=== PATIENT | male | born 1990 | race Caucasian/White ===

== ENCOUNTER 2017-12-31 19:49 | Emergency (ER) | payer MEDICAID ==
[~2017-12-31] VITALS: Ht 182.9 cm; Wt 90.7 kg
[~2017-12-31 19:49] MED LIST: ONDA8TAB6 PO; OXC300T PO; PANT40TA2 PO; RISP2TAB62 PO; SERT-274 PO; SERT-275 PO; TRAZ100T2 PO
[2017-12-31 21:10] LABS: Eosinophils # (auto) 0 uL; Eosinophils % (auto) 0.1 % (0.0-7.0); Red Blood Cells 5.95 10^6/uL (4.5-5.90)
[2017-12-31 21:12] LABS: Basophils # (auto) 0.1 uL; Basophils % (auto) 0.4 % (0.0-2.0); Hematocrit 53.6 % (41.0-53.0); Hemoglobin 18.9 g/dL (13.5-17.5); Lymphocytes # (auto) 1.8 uL; Lymphocytes % (auto) 10.7 % (10.0-50.0); Mean Corpuscular Hemoglobin 31.7 pg (28.0-32.0); Mean Corpuscular Hgb Conc. 35.2 g/dL (32.0-36.0); Mean Corpuscular Volume 90.2 fL (80.0-100.0); Monocytes # (auto) 0.8 uL; Monocytes % (auto) 4.9 % (0.0-12.0); Neutrophils # (auto) 13.9 uL; Neutrophils % (auto) 83.9 % (37.0-80.0); Nucleated Red Blood Cells % 0.1 %; Platelet Count (auto) 242 10^3/uL (140-450); Red Cell Distribution Width 13.7 % (11.8-14.3); White Blood Cell 16.6 10^3/uL (4.4-10.8)
[2017-12-31 21:25] LABS: Albumin 4.3 g/dL (3.4-5.0); Anion Gap 17 (5-15); BUN/Creatinine Ratio 12.9; Blood Urea Nitrogen 15 mg/dL (7-18); Carbon Dioxide 24 mmol/L (21-32); Chloride 95 mmol/L (98-107); GFR African American 97 mL/min; GFR Non-African American 80 mL/min; Glucose 98 mg/dL (74-106); Potassium 3.3 mmol/L (3.5-5.1); Sodium 136 mmol/L (136-145)
[2017-12-31 21:28] LABS: Alanine Aminotransferase 49 U/L (16-61); Alkaline Phosphatase 92 U/L (45-117); Aspartate Aminotransferase 27 U/L (15-37); Bilirubin, Total 1.7 mg/dL (0.2-1.0); Total Protein 8.1 g/dL (6.4-8.2)
[2018-01-01] MEDS ORDERED: KETOROLAC TROMETH 30 MG/ML 1ML VIAL IV ONE (02:15)
[2018-01-01] MEDS ORDERED: SODIUM CHLORIDE 0.9% 1,000 ML IV ONE (02:15)
[2018-01-01] MEDS ORDERED: ONDANSETRON HCL 4 MG/2 ML VIAL IV ONE (02:15)
[2018-01-01] MEDS ORDERED: PANTOPRAZOLE 40 MG/10 ML VIAL IV ONE (02:15)
[2018-01-01 04:10] VITALS: BP 131/72
== END 2018-01-01 07:13 | disposition home or self-care (01) ==
LOC: ER 19:49
DX: G43.A0 Cyclical vomiting, in migraine, not intractable (principal); F12.10 Cannabis abuse, uncomplicated; F17.210 Nicotine dependence, cigarettes, uncomplicated; Z88.5 Allergy status to narcotic agent; Z88.0 Allergy status to penicillin; Z79.899 Other long term (current) drug therapy
CPT/HCPCS: 36415; 74177; 80053; 85025; 94761; 96361; 96374; 96375; 99285; C9113; J1885; J2405; J7030

== ENCOUNTER 2018-02-03 17:02 | Observation (INO) | payer MEDICAID ==
[~2018-02-03] VITALS: Ht 182.9 cm; Wt 97.5 kg
[~2018-02-03 17:02] MED LIST changes: +ONDA-143 PO; -ONDA8TAB6 PO
[2018-02-03 18:01] LABS: Basophils # (auto) 0.1 uL; Eosinophils # (auto) 0 uL; Lymphocytes % (auto) 8.6 % (10.0-50.0); Monocytes # (auto) 0.7 uL
[2018-02-03 18:02] LABS: Basophils % (auto) 0.5 % (0.0-2.0); Hematocrit 53.2 % (41.0-53.0); Hemoglobin 18.2 g/dL (13.5-17.5); Lymphocytes # (auto) 1.2 uL; Mean Corpuscular Hemoglobin 31.1 pg (28.0-32.0); Mean Corpuscular Hgb Conc. 34.3 g/dL (32.0-36.0); Mean Corpuscular Volume 90.8 fL (80.0-100.0); Monocytes % (auto) 4.6 % (0.0-12.0); Neutrophils # (auto) 12.5 uL; Neutrophils % (auto) 86.3 % (37.0-80.0); Nucleated Red Blood Cells % 0.1 %; Platelet Count (auto) 282 10^3/uL (140-450); Red Blood Cells 5.86 10^6/uL (4.5-5.90); Red Cell Distribution Width 13.8 % (11.8-14.3); White Blood Cell 14.5 10^3/uL (4.4-10.8)
[2018-02-03 18:19] LABS: Albumin 4.5 g/dL (3.4-5.0); BUN/Creatinine Ratio 13.7; Bilirubin, Total 0.9 mg/dL (0.2-1.0); Calcium 9.1 mg/dL (8.5-10.1)
[2018-02-03 19:42] LABS: Urine Bacteria NONE SEEN /hpf (None Seen); Urine Blood 1+ /uL (Negative); Urine Mucus FEW (None Seen); Urine WBC 4 /hpf (0 - 3)
[2018-02-03 19:57] LABS: Alcohol, Urine < 3.0 mg/dL (0-5); Amphetamine Screen, Urine NEGATIVE (NEGATIVE); Barbiturate Scree,Urine NEGATIVE (NEGATIVE); Cannabinoid Screen, Urine POSITIVE (NEGATIVE); Cocaine Screen, Urine NEGATIVE (NEGATIVE); Opiate Scree,Urine NEGATIVE (NEGATIVE); Phencyclidine Screen, Urine NEGATIVE (NEGATIVE)
[2018-02-03 20:20] LABS: Benzodiazephine Screen, Urine POSITIVE (NEGATIVE)
[2018-02-03] MEDS ORDERED: KETOROLAC TROMETH 30 MG/ML 1ML VIAL IV ONE (21:45)
[2018-02-03] MEDS ORDERED: PROMETHAZINE HCL 25 MG/ML 1ML IV ONE (21:45)
[2018-02-03] MEDS ORDERED: PANTOPRAZOLE 40 MG/10 ML VIAL IV ONE (21:45)
[2018-02-03] MEDS ORDERED: METOCLOPRAMIDE HCL 5MG/ml INJ 2ml VIAL IV ONE (21:45)
[2018-02-04 00:30] VITALS: BP 122/67
[2018-02-04] MEDS ORDERED: SODIUM CHLORIDE 0.9% 1,000 ML IV ONE (00:30)
[2018-02-04] MEDS ORDERED: ALUM & MAG HYDROX-SIMETH LIQ(MAALOX) 30 ML PO ONE (00:30)
== END 2018-02-04 01:51 | disposition home or self-care (01) | DRG 249 ==
LOC: ER 17:02 → OVERFLOW 17:03 → ER 02-04 01:30
PROVIDERS: ADMIT Anesthesiology; ATTEND Anesthesiology
DX: R11.2 Nausea with vomiting, unspecified (principal); G30.9 Alzheimer's disease, unspecified; K86.1 Other chronic pancreatitis; F02.80 Dementia in other diseases classified elsewhere, unspecified severity, without behavioral disturbance, psychotic disturbance, mood disturbance, and anxiety; E87.6 Hypokalemia; F17.210 Nicotine dependence, cigarettes, uncomplicated; F12.188 Cannabis abuse with other cannabis-induced disorder
CPT/HCPCS: 36415; 74176; 80053; 80307; 80320; 81001; 82150; 83690; 85025; 96361; 96374; 96375; 99285; C9113; G0378; J1885; J2550; J2765

== ENCOUNTER 2018-02-20 22:13 | Emergency (ER) | payer MEDICAID ==
[~2018-02-20] VITALS: Ht 182.9 cm; Wt 99.8 kg
[2018-02-20 22:55] LABS: Basophils # (auto) 0 uL; Basophils % (auto) 0.4 % (0.0-2.0); Eosinophils # (auto) 0 uL; Hematocrit 47.1 % (41.0-53.0); Hemoglobin 16.4 g/dL (13.5-17.5); Lymphocytes # (auto) 0.4 uL; Lymphocytes % (auto) 3.6 % (10.0-50.0); Mean Corpuscular Hgb Conc. 34.9 g/dL (32.0-36.0); Mean Corpuscular Volume 88.9 fL (80.0-100.0); Monocytes # (auto) 0.2 uL; Monocytes % (auto) 1.3 % (0.0-12.0); Neutrophils # (auto) 10.6 uL; Neutrophils % (auto) 94.7 % (37.0-80.0); Platelet Count (auto) 274 10^3/uL (140-450); Red Blood Cells 5.29 10^6/uL (4.5-5.90); Red Cell Distribution Width 13.9 % (11.8-14.3); White Blood Cell 11.2 10^3/uL (4.4-10.8)
[2018-02-20 23:10] LABS: Alanine Aminotransferase 28 U/L (16-61); Albumin 3.9 g/dL (3.4-5.0); Anion Gap 20 (5-15); Aspartate Aminotransferase 11 U/L (15-37); BUN/Creatinine Ratio 10.1; Blood Urea Nitrogen 10 mg/dL (7-18); Calcium 8.7 mg/dL (8.5-10.1); Carbon Dioxide 16 mmol/L (21-32); Chloride 103 mmol/L (98-107); GFR African American 117 mL/min; GFR Non-African American 96 mL/min; Glucose 122 mg/dL (74-106); Potassium 3.6 mmol/L (3.5-5.1); Sodium 139 mmol/L (136-145)
[2018-02-20 23:14] LABS: Alkaline Phosphatase 87 U/L (45-117); Bilirubin, Total 0.6 mg/dL (0.2-1.0); Total Protein 7.6 g/dL (6.4-8.2)
[2018-02-21] MEDS ORDERED: SODIUM CHLORIDE 0.9% 1,000 ML IV ONE (01:30)
[2018-02-21] MEDS ORDERED: ONDANSETRON HCL 4 MG/2 ML VIAL IV ONE (01:30)
[2018-02-21] MEDS ORDERED: PROMETHAZINE HCL 25 MG/ML 1ML IV ONE (05:00)
[2018-02-21 05:33] LABS: Urine Bacteria NONE SEEN /hpf (None Seen); Urine Blood 1+ /uL (Negative); Urine Mucus FEW (None Seen); Urine Specific Gravity 1.024 (1.001-1.035); Urine WBC 2 /hpf (0 - 3)
[2018-02-21 05:49] LABS: Alcohol, Urine < 3.0 mg/dL (0-5); Amphetamine Screen, Urine NEGATIVE (NEGATIVE); Barbiturate Scree,Urine NEGATIVE (NEGATIVE); Benzodiazephine Screen, Urine POSITIVE (NEGATIVE); Cannabinoid Screen, Urine POSITIVE (NEGATIVE); Cocaine Screen, Urine NEGATIVE (NEGATIVE); Opiate Scree,Urine POSITIVE (NEGATIVE); Phencyclidine Screen, Urine NEGATIVE (NEGATIVE)
[2018-02-21 06:05] VITALS: BP 120/64
== END 2018-02-21 06:35 | disposition home or self-care (01) ==
LOC: ER 22:13
DX: R11.2 Nausea with vomiting, unspecified (principal); F17.210 Nicotine dependence, cigarettes, uncomplicated; Z88.5 Allergy status to narcotic agent; Z88.0 Allergy status to penicillin; Z79.899 Other long term (current) drug therapy
CPT/HCPCS: 36415; 80053; 80307; 81001; 84484; 85025; 96361; 96374; 96375; 99284; J2405; J2550; J7030

== ENCOUNTER 2018-02-25 20:56 | Emergency (ER) | payer MEDICAID ==
[~2018-02-25] VITALS: Ht 182.9 cm; Wt 99.8 kg
[2018-02-25 22:24] LABS: Urine Bacteria NONE SEEN /hpf (None Seen); Urine Blood TRACE /uL (Negative); Urine Mucus FEW (None Seen); Urine WBC 7 /hpf (0 - 3)
[2018-02-25 22:31] LABS: Albumin 4.3 g/dL (3.4-5.0); Bilirubin, Total 0.8 mg/dL (0.2-1.0); Calcium 9.1 mg/dL (8.5-10.1); Potassium 3.3 mmol/L (3.5-5.1); Total Protein 7.8 g/dL (6.4-8.2)
[2018-02-25 22:34] LABS: Basophils # (auto) 0.1 uL; Basophils % (auto) 0.6 % (0.0-2.0); Eosinophils # (auto) 0 uL; Eosinophils % (auto) 0.1 % (0.0-7.0); Hematocrit 47.9 % (41.0-53.0); Hemoglobin 16.8 g/dL (13.5-17.5); Lymphocytes # (auto) 1.2 uL; Lymphocytes % (auto) 9.5 % (10.0-50.0); Mean Corpuscular Hemoglobin 31.3 pg (28.0-32.0); Mean Corpuscular Hgb Conc. 35.1 g/dL (32.0-36.0); Mean Corpuscular Volume 89.1 fL (80.0-100.0); Monocytes # (auto) 0.5 uL; Monocytes % (auto) 3.7 % (0.0-12.0); Neutrophils % (auto) 86.1 % (37.0-80.0); Nucleated Red Blood Cells % 0.1 %; Platelet Count (auto) 286 10^3/uL (140-450); Red Blood Cells 5.38 10^6/uL (4.5-5.90); Red Cell Distribution Width 13.8 % (11.8-14.3); White Blood Cell 12.8 10^3/uL (4.4-10.8)
[2018-02-26] MEDS ORDERED: SODIUM CHLORIDE 0.9% 1,000 ML IV ONE (07:49)
[2018-02-26 07:54] LABS: Alcohol, Urine < 3.0 mg/dL (0-5); Amphetamine Screen, Urine NEGATIVE (NEGATIVE); Barbiturate Scree,Urine NEGATIVE (NEGATIVE); Benzodiazephine Screen, Urine POSITIVE (NEGATIVE); Cannabinoid Screen, Urine POSITIVE (NEGATIVE); Cocaine Screen, Urine NEGATIVE (NEGATIVE); Opiate Scree,Urine NEGATIVE (NEGATIVE); Phencyclidine Screen, Urine NEGATIVE (NEGATIVE)
[2018-02-26] MEDS ORDERED: PROCHLORPERAZINE EDISYLATE 5 MG/ML 2ML VIAL IV ONE (08:00)
[2018-02-26] MEDS ORDERED: MORPHINE SULFATE 4 MG/ML SYR/VIAL IV ONE (10:00)
[2018-02-26 10:43] VITALS: BP 120/68
== END 2018-02-26 10:49 | disposition home or self-care (01) ==
LOC: ER 20:56
DX: R11.10 Vomiting, unspecified (principal); F12.188 Cannabis abuse with other cannabis-induced disorder; N39.0 Urinary tract infection, site not specified; F17.210 Nicotine dependence, cigarettes, uncomplicated; Z88.0 Allergy status to penicillin; Z88.5 Allergy status to narcotic agent; Z79.899 Other long term (current) drug therapy
CPT/HCPCS: 36415; 80053; 80307; 81001; 85025; 94761; 96361; 96374; 96375; 99284; J0780; J2270; J7030

== ENCOUNTER 2018-05-01 20:27 | Emergency (ER) | payer MEDICAID ==
[~2018-05-01] VITALS: Ht 180.3 cm; Wt 97.5 kg
[2018-05-01 20:38] VITALS: BP 115/82
[2018-05-01 21:14] LABS: Basophils # (auto) 0.1 uL; Eosinophils # (auto) 0.1 uL; Eosinophils % (auto) 0.7 % (0.0-7.0); Hematocrit 44.7 % (41.0-53.0); Lymphocytes # (auto) 1.7 uL; Lymphocytes % (auto) 14.3 % (10.0-50.0); Mean Corpuscular Hemoglobin 30.7 pg (28.0-32.0); Mean Corpuscular Hgb Conc. 33.5 g/dL (32.0-36.0); Mean Corpuscular Volume 91.7 fL (80.0-100.0); Monocytes # (auto) 0.6 uL; Neutrophils # (auto) 9.2 uL; Nucleated Red Blood Cells % 0.1 %; Platelet Count (auto) 256 10^3/uL (140-450); Red Blood Cells 4.87 10^6/uL (4.5-5.90); Red Cell Distribution Width 13.7 % (11.8-14.3); White Blood Cell 11.7 10^3/uL (4.4-10.8)
[2018-05-01 21:31] LABS: Albumin 3.9 g/dL (3.4-5.0); Anion Gap 8 (5-15); Blood Urea Nitrogen 13 mg/dL (7-18); Calcium 8.9 mg/dL (8.5-10.1); Carbon Dioxide 26 mmol/L (21-32); Chloride 102 mmol/L (98-107); Glucose 78 mg/dL (74-106); INR 0.99 (0.9-1.15); Magnesium 2.2 mg/dL (1.6-2.6); Partial Thromboplastin Time 28.5 sec (23.78-33.04); Potassium 3.7 mmol/L (3.5-5.1); Prothrombin Time 10.6 sec (9.27-12.13); Sodium 136 mmol/L (136-145)
[2018-05-01 21:37] LABS: Alanine Aminotransferase 23 U/L (16-61); Alkaline Phosphatase 88 U/L (45-117); Aspartate Aminotransferase 12 U/L (15-37); BUN/Creatinine Ratio 11.9; Bilirubin, Total 0.3 mg/dL (0.2-1.0); GFR African American 104 mL/min; GFR Non-African American 86 mL/min
== END 2018-05-01 22:21 | disposition left against medical advice (07) ==
LOC: EDBD 20:27 → ER 20:33
DX: R07.9 Chest pain, unspecified (principal); Z53.21 Procedure and treatment not carried out due to patient leaving prior to being seen by health care provider
CPT/HCPCS: 36415; 80053; 83735; 83880; 84484; 85025; 85610; 85730; 93005

== ENCOUNTER 2020-02-26 05:13 | Emergency (ER) | payer MEDICAID ==
[~2020-02-26] VITALS: Ht 177.8 cm; Wt 99.8 kg
[~2020-02-26 05:13] MED LIST changes: -TRAZ100T2 PO; +TRAZ100T3 PO
[2020-02-26 05:18] VITALS: BP 134/82
[2020-02-26] MEDS ORDERED: SODIUM CHLORIDE 0.9% 1,000 ML IV ONE ×2 (06:35)
[2020-02-26] MEDS ORDERED: PROCHLORPERAZINE EDISYLATE 5 MG/ML 2ML VIAL IV ONE (06:45)
== END 2020-02-26 09:47 | disposition left against medical advice (07) ==
LOC: ER 05:13 → EDBD 05:13 → ER 09:47
DX: E86.0 Dehydration (principal); R11.2 Nausea with vomiting, unspecified; F17.210 Nicotine dependence, cigarettes, uncomplicated; Z87.442 Personal history of urinary calculi
CPT/HCPCS: 74176

== ENCOUNTER 2021-08-14 00:13 | Inpatient (IN) | payer MEDICAID ==
[2021-08-14] VITALS (15 sets, daily range): BP systolic 91–123; BP diastolic 31–78
[~2021-08-14] VITALS: Ht 177.8 cm; Wt 105.2 kg
[~2021-08-14 00:13] MED LIST changes: -SERT-274 PO; -SERT-275 PO; +SERT25TA14 PO; +SERT50TA19 PO
[2021-08-14] MEDS ORDERED: ETOMIDATE (2MG/ML) 20ML VIAL IV ONE ×2 (00:18→01:15)
[2021-08-14] MEDS: MIDAZOLAM DRIP 50 mg/50mL 50 ML IV SCH ×3 (00:35→18:45)
[2021-08-14 01:26] LABS: Basophils # (auto) 0.1 10 ^3/uL (0-0.2); Basophils % (auto) 0.7 % (0.0-2.0); Eosinophils # (auto) 0.1 10 ^3/uL (0-0.8); Eosinophils % (auto) 0.6 % (0.0-7.0); Hemoglobin 14.4 g/dL (13.5-17.5); Lymphocytes # (auto) 1.8 10 ^3/uL (0.4-5.4); Lymphocytes % (auto) 16.2 % (10.0-50.0); Mean Corpuscular Hgb Conc. 33.5 g/dL (32.0-36.0); Mean Corpuscular Volume 92.5 fL (80.0-100.0); Monocytes # (auto) 0.4 10 ^3/uL (0-1.3); Monocytes % (auto) 3.7 % (0.0-12.0); Neutrophils # (auto) 8.6 10 ^3/uL (1.6-8.6); Neutrophils % (auto) 78.8 % (37.0-80.0); Red Blood Cells 4.64 10^6/uL (4.5-5.90); Red Cell Distribution Width 13.8 % (11.8-14.3)
[2021-08-14 01:49] LABS: Alcohol, Urine < 3.0 mg/dL (0-10); Amphetamine Screen, Urine NEGATIVE (NEGATIVE); Barbiturate Scree,Urine NEGATIVE (NEGATIVE); Benzodiazephine Screen, Urine POSITIVE (NEGATIVE); Cannabinoid Screen, Urine POSITIVE (NEGATIVE); Cocaine Screen, Urine NEGATIVE (NEGATIVE); Opiate Scree,Urine NEGATIVE (NEGATIVE); Phencyclidine Screen, Urine NEGATIVE (NEGATIVE)
[2021-08-14 02:52] LABS: Alanine Aminotransferase 128 U/L (16-61); Albumin 3.4 g/dL (3.4-5.0); Alkaline Phosphatase 95 U/L (45-117); Anion Gap 6 (5-15); Aspartate Aminotransferase 110 U/L (15-37); BUN/Creatinine Ratio 8.6; Bilirubin, Total 0.3 mg/dL (0.2-1.0); Blood Alcohol < 3.0 mg/dL (0-5); Blood Urea Nitrogen 13 mg/dL (7-18); Calcium 8.2 mg/dL (8.5-10.1); Carbon Dioxide 26 mmol/L (21-32); Chloride 108 mmol/L (98-107); GFR African American 70 mL/min; GFR Non-African American 58 mL/min; Glucose 189 mg/dL (74-106); Potassium 4.2 mmol/L (3.5-5.1); Sodium 140 mmol/L (136-145); Total Protein 6.3 g/dL (6.4-8.2)
[2021-08-14] MEDS ORDERED: PROPOFOL 100 ML IV ONE (03:56)
[2021-08-14] MEDS: PROPOFOL 100 ML IV SCH ×3 (04:15→18:45)
[2021-08-14] MEDS ORDERED: PROPOFOL 10 MG/ML 20 ML IV ONE (04:45)
[2021-08-14] MEDS ORDERED: PANTOPRAZOLE 40 MG/10 ML VIAL INJ IV ONE (05:15)
[2021-08-14] MEDS ORDERED: SODIUM CHLORIDE 0.9% 1,000 ML IV ONE ×2 (05:15)
[2021-08-14] MEDS ORDERED: ONDANSETRON HCL 4 MG/2 ML VIAL IV PRN (06:15)
[2021-08-14] MEDS: SODIUM CHLORIDE 0.9% 1,000 ML IV SCH ×2 (07:09→19:25)
[2021-08-14 08:44] LABS: Basophils # (auto) 0 10 ^3/uL (0-0.2); Basophils % (auto) 0.5 % (0.0-2.0); Eosinophils # (auto) 0 10 ^3/uL (0-0.8); Eosinophils % (auto) 0.2 % (0.0-7.0); Hematocrit 45.8 % (41.0-53.0); Hemoglobin 15.5 g/dL (13.5-17.5); Lymphocytes # (auto) 0.5 10 ^3/uL (0.4-5.4); Lymphocytes % (auto) 11.4 % (10.0-50.0); Mean Corpuscular Hemoglobin 31.2 pg (28.0-32.0); Mean Corpuscular Hgb Conc. 33.9 g/dL (32.0-36.0); Mean Corpuscular Volume 92.2 fL (80.0-100.0); Monocytes # (auto) 0.2 10 ^3/uL (0-1.3); Monocytes % (auto) 4.2 % (0.0-12.0); Neutrophils % (auto) 83.7 % (37.0-80.0); Nucleated Red Blood Cells % 0.1 %; Red Blood Cells 4.97 10^6/uL (4.5-5.90); Red Cell Distribution Width 13.7 % (11.8-14.3); White Blood Cell 4.8 10^3/uL (4.4-10.8)
[2021-08-14 08:46] LABS: Calcium 8.5 mg/dL (8.5-10.1); Potassium 3.8 mmol/L (3.5-5.1)
[2021-08-14 08:47] LABS: BUN/Creatinine Ratio 12.1
[2021-08-14] MEDS: PANTOPRAZOLE 40 MG/10 ML VIAL INJ IV SCH (10:25)
[2021-08-14] MEDS: ENOXAPARIN SOD 40 MG/0.4 ML SYRINGE SC SCH (10:28)
[2021-08-14] MEDS ORDERED: NITROGLYCERIN 0.4 MG SL TAB SL PRN (11:00)
[2021-08-14] MEDS ORDERED: MORPHINE SULFATE INJECTION 2 MG/ML SYRG IV PRN (11:00)
[2021-08-14] MEDS: levoFLOXacin 500MG 100 ML IV SCH (11:30)
[2021-08-15] VITALS (75 sets, daily range): BP systolic 88–133; BP diastolic 31–77
[2021-08-15] MEDS: PROPOFOL 100 ML IV SCH ×3 (04:00→13:00)
[2021-08-15] MEDS: SODIUM CHLORIDE 0.9% 1,000 ML IV SCH ×3 (04:50→22:15)
[2021-08-15] MEDS: MIDAZOLAM DRIP 50 mg/50mL 50 ML IV SCH ×2 (09:07→13:00)
[2021-08-15] MEDS: levoFLOXacin 500MG 100 ML IV SCH (09:07)
[2021-08-15] MEDS: ENOXAPARIN SOD 40 MG/0.4 ML SYRINGE SC SCH (09:07)
[2021-08-15] MEDS: PANTOPRAZOLE 40 MG/10 ML VIAL INJ IV SCH (09:49)
[2021-08-15] MEDS ORDERED: ACCU-CHEK COMFORT CURVE STRIP VI ONE ×2 (17:45→18:00)
[2021-08-15] MEDS ORDERED: DEXTROSE (50%) 50ML SYRG IV ONE ×2 (17:45→18:00)
[2021-08-15] MEDS ORDERED: FLUO60TA7 PO (23:22)
[2021-08-15] MEDS ORDERED: CHOL20007 PO (23:24)
[2021-08-16] VITALS (74 sets, daily range): BP systolic 101–146; BP diastolic 50–87
[2021-08-16] MEDS: SODIUM CHLORIDE 0.9% 1,000 ML IV SCH ×2 (08:15→18:15)
[2021-08-16] MEDS: PROPOFOL 100 ML IV SCH ×2 (09:00→22:16)
[2021-08-16] MEDS: ENOXAPARIN SOD 40 MG/0.4 ML SYRINGE SC SCH (09:12)
[2021-08-16] MEDS: levoFLOXacin 500MG 100 ML IV SCH (09:12)
[2021-08-16] MEDS: PANTOPRAZOLE 40 MG/10 ML VIAL INJ IV SCH (09:12)
[2021-08-16] MEDS: LORazepam 0.5 MG TAB PO SCH (22:08)
[2021-08-16] MEDS: QUEtiapine FUMARATE 25 MG TAB PO SCH (22:09)
[2021-08-16] MEDS: MIDAZOLAM DRIP 50 mg/50mL 50 ML IV SCH (22:10)
[2021-08-17] VITALS (66 sets, daily range): BP systolic 96–153; BP diastolic 46–88
[2021-08-17] MEDS: PROPOFOL 100 ML IV SCH (03:40)
[2021-08-17] MEDS: SODIUM CHLORIDE 0.9% 1,000 ML IV SCH ×2 (04:15→14:38)
[2021-08-17 04:34] LABS: Basophils # (auto) 0.1 10 ^3/uL (0-0.2); Basophils % (auto) 0.8 % (0.0-2.0); Eosinophils # (auto) 0.1 10 ^3/uL (0-0.8); Eosinophils % (auto) 1.1 % (0.0-7.0); Hematocrit 38.7 % (41.0-53.0); Hemoglobin 13.1 g/dL (13.5-17.5); Lymphocytes # (auto) 2.2 10 ^3/uL (0.4-5.4); Lymphocytes % (auto) 18.5 % (10.0-50.0); Mean Corpuscular Hemoglobin 30.6 pg (28.0-32.0); Mean Corpuscular Hgb Conc. 33.7 g/dL (32.0-36.0); Mean Corpuscular Volume 90.7 fL (80.0-100.0); Monocytes # (auto) 1.2 10 ^3/uL (0-1.3); Monocytes % (auto) 9.9 % (0.0-12.0); Neutrophils # (auto) 8.2 10 ^3/uL (1.6-8.6); Neutrophils % (auto) 69.7 % (37.0-80.0); Nucleated Red Blood Cells % 0.1 %; Red Blood Cells 4.27 10^6/uL (4.5-5.90); Red Cell Distribution Width 13.6 % (11.8-14.3); White Blood Cell 11.7 10^3/uL (4.4-10.8)
[2021-08-17 04:52] LABS: Albumin 2.5 g/dL (3.4-5.0); Calcium 8.3 mg/dL (8.5-10.1); Potassium 3.4 mmol/L (3.5-5.1)
[2021-08-17 04:58] LABS: BUN/Creatinine Ratio 5.3; Bilirubin, Total 0.5 mg/dL (0.2-1.0); Total Protein 5.9 g/dL (6.4-8.2)
[2021-08-17] MEDS: ENOXAPARIN SOD 40 MG/0.4 ML SYRINGE SC SCH (07:19)
[2021-08-17] MEDS: LORazepam 0.5 MG TAB PO SCH ×2 (10:24→21:58)
[2021-08-17] MEDS: PANTOPRAZOLE 40 MG/10 ML VIAL INJ IV SCH (10:24)
[2021-08-17] MEDS: levoFLOXacin 500MG 100 ML IV SCH (10:24)
[2021-08-17] MEDS: QUEtiapine FUMARATE 25 MG TAB PO SCH ×2 (10:25→22:00)
[2021-08-17] MEDS ORDERED: EPINEPHrine HCL 0.5 ML NEB NEB ONE ×2 (16:00→16:15)
[2021-08-17] MEDS: D5W/LACTATED RINGERS 1,000 ML IV SCH (17:15)
[2021-08-18] VITALS (40 sets, daily range): BP systolic 100–144; BP diastolic 58–98
[2021-08-18] MEDS: MIDAZOLAM DRIP 50 mg/50mL 50 ML IV SCH (00:30)
[2021-08-18 04:18] LABS: BUN/Creatinine Ratio 6.1; Calcium 8.1 mg/dL (8.5-10.1); Potassium 3.4 mmol/L (3.5-5.1)
[2021-08-18] MEDS: PROPOFOL 100 ML IV SCH (04:45)
[2021-08-18] MEDS: LORazepam 0.5 MG TAB PO SCH ×3 (06:23→21:15)
[2021-08-18] MEDS: D5W/LACTATED RINGERS 1,000 ML IV SCH ×2 (06:24→19:55)
[2021-08-18] MEDS: PANTOPRAZOLE 40 MG/10 ML VIAL INJ IV SCH (09:26)
[2021-08-18] MEDS: ENOXAPARIN SOD 40 MG/0.4 ML SYRINGE SC SCH (09:26)
[2021-08-18] MEDS: levoFLOXacin 500MG 100 ML IV SCH (09:26)
[2021-08-18] MEDS: QUEtiapine FUMARATE 25 MG TAB PO SCH ×2 (09:26→21:15)
[2021-08-18] MEDS ORDERED: QUET200T45 PO (18:08)
[2021-08-19] MEDS ORDERED: ACETAMINOPHEN 325 MG TAB PO PRN (01:00)
[2021-08-19] MEDS: LORazepam 0.5 MG TAB PO SCH ×3 (06:15→22:24)
[2021-08-19 09:19] VITALS: BP 131/67
[2021-08-19] MEDS: PANTOPRAZOLE 40 MG/10 ML VIAL INJ IV SCH (10:29)
[2021-08-19] MEDS: levoFLOXacin 500MG 100 ML IV SCH (10:29)
[2021-08-19] MEDS: ENOXAPARIN SOD 40 MG/0.4 ML SYRINGE SC SCH (10:30)
[2021-08-19] MEDS: D5W/LACTATED RINGERS 1,000 ML IV SCH (10:30)
[2021-08-19] MEDS: QUEtiapine FUMARATE 25 MG TAB PO SCH ×2 (10:30→22:24)
[2021-08-19 13:00] VITALS: BP 129/71
[2021-08-19 17:48] VITALS: BP 118/66
[2021-08-20] MEDS: LORazepam 0.5 MG TAB PO SCH ×3 (06:15→22:08)
[2021-08-20 09:00] VITALS: BP 142/79
[2021-08-20] MEDS: ENOXAPARIN SOD 40 MG/0.4 ML SYRINGE SC SCH (10:00)
[2021-08-20] MEDS: QUEtiapine FUMARATE 25 MG TAB PO SCH ×2 (10:00→22:08)
[2021-08-20] MEDS: PANTOPRAZOLE 40 MG/10 ML VIAL INJ IV SCH (10:15)
[2021-08-20 13:00] VITALS: BP 150/65
[2021-08-20 17:00] VITALS: BP 111/53
[2021-08-21 05:00] VITALS: BP 132/73
[2021-08-21] MEDS: LORazepam 0.5 MG TAB PO SCH (06:06)
[2021-08-21 08:00] VITALS: BP 121/69
[2021-08-21] MEDS: ENOXAPARIN SOD 40 MG/0.4 ML SYRINGE SC SCH (10:00)
[2021-08-21] MEDS: QUEtiapine FUMARATE 25 MG TAB PO SCH (10:00)
[2021-08-21] MEDS: PANTOPRAZOLE 40 MG/10 ML VIAL INJ IV SCH (10:58)
[2021-08-21 11:53] VITALS: BP 121/69
== END 2021-08-21 11:50 | disposition home health service (06) | DRG 133 ==
LOC: EDBD 00:13 → ER 00:13 → OVERFLOW 10:48 → ICU WEST 21:43 → TELE-CENTR 08-18 17:10
PROVIDERS: ADMIT Internal Medicine; ATTEND Internal Medicine
PROC: 5A1945Z Respiratory Ventilation, 24-96 Consecutive Hours (ICD-10-PCS; principal; 2021-08-14)
PROC: 0BH17EZ Insertion of Endotracheal Airway into Trachea, Via Natural or Artificial Opening (ICD-10-PCS; 2021-08-14)
DX: J96.01 Acute respiratory failure with hypoxia (principal); G92.8 Other toxic encephalopathy; G93.1 Anoxic brain damage, not elsewhere classified; E87.2 Acidosis; F33.9 Major depressive disorder, recurrent, unspecified; N17.9 Acute kidney failure, unspecified; E86.0 Dehydration; E66.01 Morbid (severe) obesity due to excess calories; F12.90 Cannabis use, unspecified, uncomplicated; F41.9 Anxiety disorder, unspecified; F90.9 Attention-deficit hyperactivity disorder, unspecified type; Z20.822 Contact with and (suspected) exposure to COVID-19; F17.210 Nicotine dependence, cigarettes, uncomplicated; Z82.49 Family history of ischemic heart disease and other diseases of the circulatory system; Z82.62 Family history of osteoporosis; Z87.442 Personal history of urinary calculi; Z88.5 Allergy status to narcotic agent; Z91.51 Personal history of suicidal behavior; Z88.0 Allergy status to penicillin; Z56.0 Unemployment, unspecified; Z68.34 Body mass index [BMI] 34.0-34.9, adult
CPT/HCPCS: 36415; 36600; 70450; 71045; 72125; 80048; 80053; 80307; 80320; 82805; 82962; 83605; 84484; 85025; 86850; 86900; 86901; 87070; 87081; 87205; 87426; 92610; 93005; 94002; 94003; 95819; 96361; 96374; 97110; 97116; 97163; 97530; 99291; C9113; G0378; J1956; J2250; J2405; J2704; J7060

== ENCOUNTER 2022-11-29 19:23 | Inpatient (IN) | payer MEDICAID ==
[~2022-11-29] VITALS: Ht 182.9 cm; Wt 102.0 kg
[~2022-11-29 19:23] MED LIST changes: +CHOL20007 PO; +FLUO60TA7 PO; -ONDA-143 PO; +QUET200T45 PO; -RISP2TAB62 PO; -SERT25TA14 PO; -SERT50TA19 PO; -TRAZ100T3 PO
[2022-11-29 20:56] LABS: Albumin 4.6 g/dL (3.4-5.0); Calcium 10.3 mg/dL (8.5-10.1); Potassium 4.2 mmol/L (3.5-5.1)
[2022-11-29 20:59] LABS: BUN/Creatinine Ratio 24.9 (10.0-20.0); Bilirubin, Total 0.8 mg/dL (0.2-1.0); Total Protein 8.7 g/dL (6.4-8.2)
[2022-11-29 21:02] LABS: Red Cell Distribution Width 14.8 % (11.8-14.3)
[2022-11-29 21:03] LABS: Hematocrit 51.5 % (41.0-53.0); Hemoglobin 17.3 g/dL (13.5-17.5); Mean Corpuscular Hemoglobin 31.2 pg (28.0-32.0); Mean Corpuscular Hgb Conc. 33.7 g/dL (32.0-36.0); Mean Corpuscular Volume 92.6 fL (80.0-100.0); Red Blood Cells 5.56 10^6/uL (4.5-5.90); White Blood Cell 26.7 10^3/uL (4.4-10.8)
[2022-11-29 21:13] LABS: Band Neutrophils % (manual) 0; Basophils % (manual) 0 (0.0-2.0); Blast Cells 0; Eosinophils % (manual) 0 (0-7); Metamyelocytes % 0; Myelocytes % 0; Promyelocytes % 0; Reactive Lymphocytes 0
[2022-11-29 21:51] LABS: Lymphocytes % (manual) 10 (10.0-50.0); Monocytes % (manual) 7 (0-12)
[2022-11-29] MEDS ORDERED: LACTATED RINGER'S 2,750 ML IV ONE (22:00)
[2022-11-29] MEDS ORDERED: cefTRIAXone 1GM/50ML D5W 50 ML IV ONE (22:00)
[2022-11-29] MEDS ORDERED: metroNIDAZOLE 500MG/100ML 100 ML IV ONE (22:00)
[2022-11-29] MEDS ORDERED: LACTATED RINGER'S 1,000 ML IV ONE (22:04)
[2022-11-29] MEDS ORDERED: MORPHINE SULFATE INJ 2 MG/ml SYRG IM ONE (22:05)
[2022-11-29] MEDS ORDERED: ONDANSETRON ODT 4 MG TAB PO ONE (22:06)
[2022-11-29] MEDS ORDERED: IOHEXOL 350 MG/ML 100ML IJ ONE (22:51)
[2022-11-29 23:19] LABS: INR 1.15 (0.9-1.15); Partial Thromboplastin Time 24.8 sec (24.6-33.4)
[2022-11-29 23:28] LABS: Lactic Acid w/Reflex 2.9 mmol/L (0.4-2.0)
[2022-11-30] MEDS ORDERED: MORPHINE SULFATE 4 MG/ML SYR/VIAL IV ONE ×2 (00:30→08:15)
[2022-11-30] MEDS ORDERED: ONDANSETRON HCL 4 MG/2 ML VIAL IV ONE ×2 (00:30→08:15)
[2022-11-30] MEDS ORDERED: diphenhdrAMINE HCL 50 MG/1 ML VL IV ONE (00:45)
[2022-11-30] MEDS ORDERED: METOCLOPRAMIDE HCL 5MG/ml INJ 2ml VIAL IV ONE (00:45)
[2022-11-30 03:04] LABS: Urine Bacteria NONE SEEN /hpf (None Seen); Urine Blood Negative /uL (Negative); Urine Mucus FEW (None Seen); Urine WBC 2 /hpf (0 - 3)
[2022-11-30 03:11] LABS: Alcohol, Urine < 3.0 mg/dL (0-10); Amphetamine Screen, Urine NEGATIVE (NEGATIVE); Barbiturate Scree,Urine NEGATIVE (NEGATIVE); Benzodiazephine Screen, Urine NEGATIVE (NEGATIVE); Cannabinoid Screen, Urine POSITIVE (NEGATIVE); Cocaine Screen, Urine NEGATIVE (NEGATIVE); Opiate Scree,Urine POSITIVE (NEGATIVE)
[2022-11-30 03:19] LABS: Phencyclidine Screen, Urine NEGATIVE (NEGATIVE)
[2022-11-30 03:20] LABS: Urine Specific Gravity > 1.050 (1.001-1.035)
[2022-11-30] MEDS ORDERED: DEXTROSE (50%) 50ML SYRG IV PRN (09:00)
[2022-11-30] MEDS ORDERED: MORPHINE SULFATE INJ 2 MG/ml SYRG IV ONE (09:15)
[2022-11-30 10:19] LABS: Lactic Acid w/Reflex 2.5 mmol/L (0.4-2.0)
[2022-11-30] MEDS: cefTRIAXone 1GM/50ML D5W 50 ML IV SCH (10:39)
[2022-11-30] MEDS: DICYCLOMINE HCL (10MG/ML) 2 ML AMPULE IM SCH ×2 (10:39→21:09)
[2022-11-30] MEDS: PANTOPRAZOLE 40 MG/10 ML VIAL INJ IV SCH (10:39)
[2022-11-30] MEDS: SODIUM CHLORIDE 0.9% 1,000 ML IV SCH ×2 (10:42→19:33)
[2022-11-30] MEDS: ACCU-CHEK COMFORT CURVE STRIP VI SCH ×2 (12:32→21:09)
[2022-11-30] MEDS: MORPHINE SULFATE INJ 2 MG/ml SYRG IV PRN (12:49)
[2022-11-30] MEDS: InsuLIN REG 1unit/0.01ml Soln (100units/ml) SC SCH ×2 (13:00→18:00)
[2022-11-30 13:17] LABS: Creatinine, Urine 223 mg/dL (30.0-125.0); Sodium Urine 6 mmol/L (40-220)
[2022-11-30] MEDS: metroNIDAZOLE 500MG/100ML 100 ML IV SCH (14:08)
[2022-11-30] MEDS ORDERED: LORazepam 2MG/ML-1ML VIAL IV ONE (14:15)
[2022-12-01] MEDS: PANTOPRAZOLE 40 MG/10 ML VIAL INJ IV SCH ×3 (00:46→22:29)
[2022-12-01] MEDS: ACCU-CHEK COMFORT CURVE STRIP VI SCH ×4 (00:47→17:09)
[2022-12-01] MEDS: InsuLIN REG 1unit/0.01ml Soln (100units/ml) SC SCH ×4 (00:47→17:09)
[2022-12-01] MEDS: metroNIDAZOLE 500MG/100ML 100 ML IV SCH ×4 (00:47→22:29)
[2022-12-01] MEDS: D5W/SOD CHL 0.45% 1,000 ML IV SCH ×2 (00:47→12:22)
[2022-12-01] MEDS: MORPHINE SULFATE INJ 2 MG/ml SYRG IV PRN ×2 (00:51→08:51)
[2022-12-01] MEDS: SODIUM CHLORIDE 0.9% 1,000 ML IV SCH ×3 (01:40→16:51)
[2022-12-01 05:00] VITALS: BP 134/87
[2022-12-01] MEDS: DICYCLOMINE HCL (10MG/ML) 2 ML AMPULE IM SCH ×4 (06:00→18:22)
[2022-12-01 07:37] LABS: Albumin 3.1 g/dL (3.4-5.0); Calcium 8.3 mg/dL (8.5-10.1); Potassium 4.4 mmol/L (3.5-5.1)
[2022-12-01 07:40] LABS: Bilirubin, Total 0.5 mg/dL (0.2-1.0); Total Protein 6.4 g/dL (6.4-8.2)
[2022-12-01 08:00] VITALS: BP 136/86
[2022-12-01] MEDS: cefTRIAXone 1GM/50ML D5W 50 ML IV SCH (08:37)
[2022-12-01 08:57] VITALS: BP 136/86
[2022-12-01 11:18] LABS: Basophils # (auto) 0 10 ^3/uL (0-0.2); Basophils % (auto) 0.3 % (0.0-2.0); Eosinophils # (auto) 0 10 ^3/uL (0-0.8); Eosinophils % (auto) 0.1 % (0.0-7.0); Hematocrit 40.1 % (41.0-53.0); Hemoglobin 13.4 g/dL (13.5-17.5); Lymphocytes # (auto) 2.1 10 ^3/uL (0.4-5.4); Lymphocytes % (auto) 14.2 % (10.0-50.0); Mean Corpuscular Hemoglobin 30.9 pg (28.0-32.0); Mean Corpuscular Hgb Conc. 33.3 g/dL (32.0-36.0); Mean Corpuscular Volume 92.7 fL (80.0-100.0); Monocytes # (auto) 0.7 10 ^3/uL (0-1.3); Monocytes % (auto) 4.8 % (0.0-12.0); Neutrophils # (auto) 12.1 10 ^3/uL (1.6-8.6); Neutrophils % (auto) 80.6 % (37.0-80.0); Nucleated Red Blood Cells % 0.1 %; Red Blood Cells 4.33 10^6/uL (4.5-5.90); Red Cell Distribution Width 14.5 % (11.8-14.3); White Blood Cell 15.1 10^3/uL (4.4-10.8)
[2022-12-01 12:54] VITALS: BP 134/87
[2022-12-01] MEDS ORDERED: MEPERIDINE HCL (25 MG/ML) 1ML VIAL ONE (15:07)
[2022-12-01] MEDS ORDERED: fentaNYL CITRATE 100 MCG/2 ML VL ONE (15:07)
[2022-12-01] MEDS ORDERED: MIDAZOLAM HCL 2MG/2ML 2ml VIAL (1mg/ml) ONE (15:07)
[2022-12-01] MEDS ORDERED: DexAMETHasone SOD PHOS 10MG/1ML VIAL INJ ONE (15:21)
[2022-12-01] MEDS: SUCRALFATE 1 GM/10 ML ORAL SUSP PO SCH ×2 (17:02→22:00)
[2022-12-01 20:00] VITALS: BP 147/87
[2022-12-01 21:46] VITALS: BP 147/87
[2022-12-01] MEDS: METOCLOPRAMIDE HCL 5MG/ml INJ 2ml VIAL IV SCH (22:30)
[2022-12-02] VITALS (7 sets, daily range): BP systolic 119–134; BP diastolic 75–91
[2022-12-02] MEDS: SODIUM CHLORIDE 0.9% 1,000 ML IV SCH ×3 (01:05→18:07)
[2022-12-02] MEDS: DICYCLOMINE HCL (10MG/ML) 2 ML AMPULE IM SCH ×4 (01:10→18:08)
[2022-12-02] MEDS: metroNIDAZOLE 500MG/100ML 100 ML IV SCH ×3 (06:17→20:57)
[2022-12-02] MEDS: METOCLOPRAMIDE HCL 5MG/ml INJ 2ml VIAL IV SCH ×3 (06:17→20:57)
[2022-12-02] MEDS: SUCRALFATE 1 GM/10 ML ORAL SUSP PO SCH ×2 (06:21→11:30)
[2022-12-02] MEDS: cefTRIAXone 1GM/50ML D5W 50 ML IV SCH (09:35)
[2022-12-02] MEDS: PANTOPRAZOLE 40 MG/10 ML VIAL INJ IV SCH ×2 (09:35→20:57)
[2022-12-02] MEDS: MORPHINE SULFATE INJ 2 MG/ml SYRG IV PRN ×2 (09:36→18:04)
[2022-12-02 09:54] LABS: Basophils # (auto) 0.1 10 ^3/uL (0-0.2); Basophils % (auto) 0.4 % (0.0-2.0); Eosinophils # (auto) 0 10 ^3/uL (0-0.8); Hematocrit 33.9 % (41.0-53.0); Hemoglobin 11.7 g/dL (13.5-17.5); Lymphocytes # (auto) 2.1 10 ^3/uL (0.4-5.4); Lymphocytes % (auto) 13.8 % (10.0-50.0); Mean Corpuscular Hemoglobin 31.4 pg (28.0-32.0); Mean Corpuscular Hgb Conc. 34.6 g/dL (32.0-36.0); Mean Corpuscular Volume 90.8 fL (80.0-100.0); Monocytes # (auto) 0.7 10 ^3/uL (0-1.3); Monocytes % (auto) 4.6 % (0.0-12.0); Neutrophils # (auto) 12.4 10 ^3/uL (1.6-8.6); Neutrophils % (auto) 81.2 % (37.0-80.0); Nucleated Red Blood Cells % 0.1 %; Red Blood Cells 3.73 10^6/uL (4.5-5.90); Red Cell Distribution Width 14.3 % (11.8-14.3); White Blood Cell 15.3 10^3/uL (4.4-10.8)
[2022-12-02 10:26] LABS: BUN/Creatinine Ratio 14.8 (10.0-20.0); Calcium 8.4 mg/dL (8.5-10.1); Magnesium 2.6 mg/dL (1.6-2.6); Potassium 3.5 mmol/L (3.5-5.1)
[2022-12-02] MEDS ORDERED: SUCRALFATE 1 GM TAB PO ONE (13:15)
[2022-12-02] MEDS: ONDANSETRON HCL 4 MG/2 ML VIAL IV PRN (18:04)
[2022-12-02] MEDS: SUCRALFATE 1 GM TAB PO SCH ×2 (18:06→20:57)
[2022-12-03] MEDS: DICYCLOMINE HCL (10MG/ML) 2 ML AMPULE IM SCH ×4 (01:14→18:00)
[2022-12-03] MEDS: MORPHINE SULFATE INJ 2 MG/ml SYRG IV PRN ×3 (01:22→15:54)
[2022-12-03] MEDS: SODIUM CHLORIDE 0.9% 1,000 ML IV SCH ×3 (01:38→16:45)
[2022-12-03 05:00] VITALS: BP 111/67
[2022-12-03] MEDS: metroNIDAZOLE 500MG/100ML 100 ML IV SCH ×2 (06:23→13:57)
[2022-12-03] MEDS: METOCLOPRAMIDE HCL 5MG/ml INJ 2ml VIAL IV SCH ×2 (06:24→13:57)
[2022-12-03] MEDS: SUCRALFATE 1 GM TAB PO SCH ×3 (06:29→19:20)
[2022-12-03 08:00] VITALS: BP 134/76
[2022-12-03] MEDS: cefTRIAXone 1GM/50ML D5W 50 ML IV SCH (08:08)
[2022-12-03] MEDS: PANTOPRAZOLE 40 MG/10 ML VIAL INJ IV SCH (08:12)
[2022-12-03 09:00] VITALS: BP 134/76
[2022-12-03 13:00] VITALS: BP 114/81
[2022-12-03] MEDS: ONDANSETRON HCL 4 MG/2 ML VIAL IV PRN (15:53)
[2022-12-03] MEDS ORDERED: CEPH-510 PO (16:15)
[2022-12-03] MEDS ORDERED: METR500T PO (16:15)
[2022-12-03] MEDS ORDERED: SUCR1TAB22 OR (16:15)
[2022-12-03] MEDS ORDERED: PANT40TA2 PO (16:15)
[2022-12-03 17:00] VITALS: BP 103/63
[2022-12-03 17:46] VITALS: BP 134/76
== END 2022-12-03 19:50 | disposition home or self-care (01) | DRG 242 ==
LOC: EDBD 19:23 → ER 19:28 → TELE 11-30 09:10 → TELE-WESTW 11-30 22:28
PROVIDERS: ADMIT Nurse Practitioner Family; ATTEND Internal Medicine
PROC: 05HB33Z Insertion of Infusion Device into Right Basilic Vein, Percutaneous Approach (ICD-10-PCS; 2022-11-30)
PROC: B54MZZA Ultrasonography of Right Upper Extremity Veins, Guidance (ICD-10-PCS; 2022-11-30)
PROC: 0DB68ZX Excision of Stomach, Via Natural or Artificial Opening Endoscopic, Diagnostic (ICD-10-PCS; 2022-12-01)
PROC: 0DB58ZX Excision of Esophagus, Via Natural or Artificial Opening Endoscopic, Diagnostic (ICD-10-PCS; 2022-12-01)
PROC: 0DB98ZX Excision of Duodenum, Via Natural or Artificial Opening Endoscopic, Diagnostic (ICD-10-PCS; principal; 2022-12-01 15:05)
DX: K22.11 Ulcer of esophagus with bleeding (principal); N17.0 Acute kidney failure with tubular necrosis; R65.11 Systemic inflammatory response syndrome (SIRS) of non-infectious origin with acute organ dysfunction; K29.81 Duodenitis with bleeding; K29.71 Gastritis, unspecified, with bleeding; E87.20 Acidosis, unspecified; E86.0 Dehydration; D75.839 Thrombocytosis, unspecified; F12.10 Cannabis abuse, uncomplicated; F17.210 Nicotine dependence, cigarettes, uncomplicated; I25.10 Atherosclerotic heart disease of native coronary artery without angina pectoris; N20.0 Calculus of kidney; K44.9 Diaphragmatic hernia without obstruction or gangrene; K76.0 Fatty (change of) liver, not elsewhere classified; F31.9 Bipolar disorder, unspecified; Z87.19 Personal history of other diseases of the digestive system; Z88.0 Allergy status to penicillin; Z87.442 Personal history of urinary calculi
CPT/HCPCS: 36415; 36600; 71045; 74177; 80048; 80053; 80307; 80320; 81001; 82010; 82570; 82805; 82962; 83036; 83605; 83690; 83735; 83930; 84300; 84484; 85007; 85025; 85027; 85610; 85730; 86850; 86900; 86901; 87040; 93005; 96365; 96372; 96375; 99291; C9113; G0378; J0696; J1100; J1815; J2250; J2405; J3490; Q0162

== ENCOUNTER 2024-04-29 20:41 | Emergency (ER) | payer MEDICAID ==
[~2024-04-29] VITALS: Ht 180.3 cm; Wt 100.0 kg
[~2024-04-29 20:41] MED LIST changes: +CEPH-510 PO; +METR500T PO; +SUCR1TAB31 OR
[2024-04-29 20:58] VITALS: BP 113/71
[2024-04-29 20:59] VITALS: PULSE 98; RESP 18; O2SAT 95
[2024-04-29] MEDS: ACETAMINOPHEN 325 MG TAB PO ONE (21:17)
[2024-04-29 21:48] LABS: Basophils # (auto) 0.1 10 ^3/uL (0-0.2); Basophils % (auto) 0.7 % (0.0-2.0); Eosinophils # (auto) 0.1 10 ^3/uL (0-0.8); Eosinophils % (auto) 0.8 % (0.0-7.0); Hematocrit 45.9 % (41.0-53.0); Hemoglobin 15.6 g/dL (13.5-17.5); Lymphocytes # (auto) 1.3 10 ^3/uL (0.4-5.4); Lymphocytes % (auto) 13.1 % (10.0-50.0); Mean Corpuscular Hemoglobin 30.5 pg (28.0-32.0); Mean Corpuscular Volume 89.5 fL (80.0-100.0); Monocytes # (auto) 0.4 10 ^3/uL (0-1.3); Neutrophils # (auto) 8.2 10 ^3/uL (1.6-8.6); Neutrophils % (auto) 81.4 % (37.0-80.0); Nucleated Red Blood Cells % 0.1 %; Platelet Count (auto) 254 10^3/uL (140-450); Red Blood Cells 5.12 10^6/uL (4.5-5.90); Red Cell Distribution Width 14.4 % (11.8-14.3)
[2024-04-29 21:54] LABS: Chloride 110 mmol/L (98-107); Potassium 4.2 mmol/L (3.5-5.1); Sodium 139 mmol/L (136-145)
[2024-04-29 21:55] LABS: Anion Gap 7 (5-15); Calcium 9.7 mg/dL (8.7-10.4); Carbon Dioxide 22 mmol/L (20-31)
[2024-04-29 22:00] LABS: BUN/Creatinine Ratio 10.2 (10.0-20.0); Blood Alcohol < 3.0 mg/dL (<10); Blood Urea Nitrogen 13 mg/dL (9-23); Glucose 93 mg/dL (74-106)
[2024-04-29 22:40] LABS: Amphetamine Screen, Urine Pos (NEGATIVE); Barbiturate Scree,Urine Neg (NEGATIVE); Benzodiazephine Screen, Urine Neg (NEGATIVE); Cannabinoid Screen, Urine Pos (NEGATIVE); Cocaine Screen, Urine Neg (NEGATIVE); Opiate Scree,Urine Neg (NEGATIVE); Phencyclidine Screen, Urine Neg (NEGATIVE)
[2024-04-29 22:58] VITALS: TEMP 97.9
[2024-04-29] MEDS: IBUPROFEN 800 MG TAB PO ONE (22:58)
== END 2024-04-29 21:14 | disposition home or self-care (01) ==
LOC: EDBD 20:41 → ER 20:41 → EDUNIT# 20:41 → ER 21:14
DX: R56.9 Unspecified convulsions (principal); F41.9 Anxiety disorder, unspecified; F17.210 Nicotine dependence, cigarettes, uncomplicated; F12.10 Cannabis abuse, uncomplicated; Z90.89 Acquired absence of other organs; Z87.442 Personal history of urinary calculi
CPT/HCPCS: 36415; 70450; 80048; 80307; 80320; 85025

== ENCOUNTER 2024-06-17 21:38 | Emergency (ER) | payer MEDICAID ==
[~2024-06-17] VITALS: Ht 182.9 cm; Wt 104.5 kg
[2024-06-17 21:41] VITALS: BP 119/77
[2024-06-17 21:51] VITALS: PULSE 110; RESP 20; O2SAT 96
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
[2024-06-17 21:54] VITALS: PULSE 106
[2024-06-17] MEDS: ACETAMINOPHEN 325 MG TAB PO ONE (22:00)
[2024-06-17 22:29] LABS: Basophils # (auto) 0.1 10 ^3/uL (0-0.2); Basophils % (auto) 0.9 % (0.0-2.0); Eosinophils # (auto) 0.1 10 ^3/uL (0-0.8); Eosinophils % (auto) 1.1 % (0.0-7.0); Hematocrit 44.5 % (41.0-53.0); Hemoglobin 15.1 g/dL (13.5-17.5); Lymphocytes # (auto) 2.1 10 ^3/uL (0.4-5.4); Lymphocytes % (auto) 20.4 % (10.0-50.0); Mean Corpuscular Hemoglobin 30.7 pg (28.0-32.0); Mean Corpuscular Hgb Conc. 33.8 g/dL (32.0-36.0); Mean Corpuscular Volume 90.8 fL (80.0-100.0); Monocytes # (auto) 0.4 10 ^3/uL (0-1.3); Monocytes % (auto) 3.5 % (0.0-12.0); Neutrophils # (auto) 7.7 10 ^3/uL (1.6-8.6); Neutrophils % (auto) 74.1 % (37.0-80.0); Platelet Count (auto) 218 10^3/uL (140-450); Red Cell Distribution Width 14.3 % (11.8-14.3); White Blood Cell 10.4 10^3/uL (4.4-10.8)
[2024-06-17 22:30] LABS: Potassium 4.8 mmol/L (3.5-5.1); Sodium 144 mmol/L (136-145)
[2024-06-17 22:31] LABS: Anion Gap 10 (5-15); Calcium 9.7 mg/dL (8.7-10.4); Carbon Dioxide 25 mmol/L (20-31)
[2024-06-17 22:36] LABS: BUN/Creatinine Ratio 8.4 (10.0-20.0); Blood Urea Nitrogen 12 mg/dL (9-23); Chloride 109 mmol/L (98-107); Glucose 95 mg/dL (74-106)
--- NOTE | 2024-06-17 23:18 | DVH ---
INDICATION: neck pain COMPARISON: None TECHNIQUE: 2 views of the cervical spine were obtained. FINDINGS: The cervical vertebral alignment is normal. The predental space is normal. The intervertebral disc spaces are well-maintained. No significant facet arthropathy is noted. No acute fracture, vertebral compression deformity or aggressive osseous lesions. The imaged lung apices are unremarkable. IMPRESSION: No acute fracture. No odontoid views were obtained in this study.
--- NOTE | 2024-06-17 23:19 | DVH ---
CHEST RADIOGRAPH Indication: chest pain Technique: Single frontal view of the chest was obtained Comparison: XY CHEST XRAY 1 VIEW on DOS: 11/30/22, CHEST PORTABLE on DOS: 08/17/21, CHEST PORTABLE on DO S: 08/16/21 FINDINGS: Lines and Tubes: None Lungs: Clear Pleura: No effusion. No pneumothorax. Cardiomediastinal contours: Unremarkable Bones: Unremarkable IMPRESSION: 1. Clear lungs. Low lung volumes with bronchovascular crowding.
--- NOTE | 2024-06-18 06:45 | ECG ---
[facility] Test Date: 2024-06-17 Test Time: 21:54:45 Pat Name: ALDEN DUFF Department: ED Room: Gender: M Family Medicine Physician Assistant: : 1990 Requested By: WILFREDO PAYNE Order Number: [id number] Reading MD: Kavon Romero Measurements Intervals [place] Rate: 106 P: 51 AK: 135 QRS: 58 QRSD: 83 T: 35 QT: 307 QTc: 408 Interpretive Statements Sinus tachycardia Low voltage, precordial leads Baseline wander in lead(s) I,III,aVL Electronically Signed On 06-20-2024 12:41:30 PST by Kavon Romero Please click the below link to view image of tracing.
== END 2024-06-17 23:45 ==
LOC: EDBD 21:38 → EDUNIT# 21:38 → EEVIPCON 21:38 → ER 21:38
DX: R07.9 Chest pain, unspecified (principal); M54.2 Cervicalgia; R44.3 Hallucinations, unspecified; R91.8 Other nonspecific abnormal finding of lung field; F41.9 Anxiety disorder, unspecified; F17.210 Nicotine dependence, cigarettes, uncomplicated; Z79.899 Other long term (current) drug therapy; Z88.0 Allergy status to penicillin; Z88.5 Allergy status to narcotic agent; Z90.89 Acquired absence of other organs
CPT/HCPCS: 36415; 71045; 72040; 80048; 84484; 85025; 93005

== ENCOUNTER 2024-07-16 20:56 | Emergency (ER) | payer MEDICAID, OTHER ==
[~2024-07-16] VITALS: Ht 177.8 cm; Wt 106.8 kg
[2024-07-16] MEDS: LORazepam 2MG/ML-1ML VIAL IV ONE (21:30)
--- NOTE | 2024-07-16 21:32 | ED.PDOC ---
GI ASSESSMENT HPI Comments 33 year old male brought in by EMS presents to the ED with a chief complaint of nausea/vomiting onset yesterday. Patient states he had wisdom teeth extracted yesterday. Patient began experiencing diffuse abdominal pain, nausea/vomiting last night and last bowel movement was about 2 days ago. He was prescribed medication after extraction and has been taking them accordingly. Past medical history of anxiety. Denies fever, chills, diarrhea, chest pain, shortness of breath, dysuria. No other symptoms or modifying factors present at this time. Chief Complaint: Nausea/Vomiting Time Seen by MD: 21:19 Primary Care Provider: FLORA Reviewed Notes: Medications, Allergies Allergies: Coded Allergies: Codeine (Verified Allergy, Unknown, 12/15/15) Penicillins (Verified Allergy, Unknown, 12/15/15) Home Meds Active Scripts Ondansetron Odt 4MG Tab (ZOFRAN PO) 4 Mg Tb, 4 MG PO TID PRN, #30 TAB prn nausea/vomiting ODT TAB-DISSOLVE IN MOUTH, THEN SWALLOW Prov:ALEX WILLIAMSON MD 07/16/24 Dicyclomine Hcl (BENTYL CAPSULE) 10 Mg Cp, 2 CAP PO Q6HP PRN, #30 CAP 11 Refills prn abdominal pain Prov:ALEX WILLIAMSON MD 07/16/24 Metronidazole (Flagyl) 500 Mg Tab, 1 TAB PO TID for 7 Days, #21 TAB Prov:ALEX WILLIAMSON MD 07/16/24 Ciprofloxacin Hcl (Cipro) 500 Mg Tab, 1 TAB PO BID for 7 Days, #14 TAB Prov:ALEX WILLIAMSON MD 07/16/24 Sucralfate (CARAFATE) 1 Gm Tab, 1 GM OR QIDACHS for 30 Days, #120 TAB Prov:NICO TODD MD 12/03/22 Pantoprazole Sodium Sesquihydr (Protonix) 40 Mg Tab, 40 MG PO BIDAC for 30 Days, #60 TAB Prov:NICO TODD MD 12/03/22 Metronidazole (Flagyl) 500 Mg Tab, 500 MG PO TID for 5 Days, #15 TAB Prov:NICO TODD MD 12/03/22 Cephalexin ( Keflex 500) 500 Mg Cap, 1 CAP PO QID for 5 Days, #20 CAP Prov:NICO TODD MD 12/03/22 Reported Medications Quetiapine Fumerate (QUETIAPINE FUMARATE) 200 Mg Tab, 200 MG PO HS, TAB 08/18/21 Cholecalciferol (VITAMIN D3) 2,000 Unit Tab, 125 TAB PO DAILY, #30 TAB 5 Refills 08/15/21 Fluoxetine HCl (Fluoxetine) 60 Mg Tab, 40 MG PO DAILY, TAB 08/15/21 Pantoprazole Sodium Sesquihydr (Protonix) 40 Mg Tab, 40 MG PO DAILY, #30 TAB 05/06/15 Oxcarbazepine (TRILEPTAL TABLET) 300 Mg Tb, 1 TAB PO BID, #60 TAB 05/06/15 Information Source: Patient, Emergency Med Personnel Mode of Arrival: EMS Timing: Days Duration: Since onset Prehospital treatment: None Quality: Aching Severity: Moderate Recent: Recent Surgery (wisdom teeth extraction) Recent Hx of: None Pain Location: Diffuse Modifying Factors: Nothing Associated sign and symptoms: Nausea, Vomiting, Abdominal Pain Past Medical History PAST MEDICAL HISTORY: Anxiety, Kidney Stones Surgical History: Tonsillectomy Surgical History (Other): wisdom teeth extraction Family History Family History: No family hx of DM Social History Smoker: Cigarettes, Less Than 1 Pack/Day Alcohol: Occasionally Drugs: Marijuana Lives In: Home Constitutional: denies: chills, diaphoresis, fatigue, fever, malaise, sweats, weakness, others EENTM: denies: blurred vision, double vision, ear bleeding, ear discharge, ear drainage, ear pain, ear ringing, eye pain, eye redness, hearing loss, mouth p ain, mouth swelling, nasal discharge, nose bleeding, nose congestion, nose pain, photophobia, tearing, throat pain, throat swelling, voice changes, others Respiratory: denies: cough, hemoptysis, orthopnea, SOB at rest, shortness of br eath, SOB with excertion, stridor, wheezing, others Cardiovascular: denies: chest pain, dizzy spells, diaphoresis, Dyspnea on exertion, edema, irregular heart beat, left arm pain, lightheadedness, palpitations, PND, syncope, others Gastrointestinal: reports: abdominal pain, constipated, nausea, vomiting; denies: abdomen distended, blood streaked bowels, diarrhea, dysphagia, difficu lty swallowing, hematemesis, melena, poor appetite, poor fluid intake, rectal bleeding, rectal pain, others Genitourinary: denies: burning, dysuria, flank pain, frequency, hematuria, incontinence, penile discharge, penile sore, pain, testicle pain, testicle swelling, urgency, others Neurological: denies: dizziness, fainting, headache, left sided numbness, left sided weakness, numbness, paresthesia, pre-existing deficit, right sided numbness, right sided weakness, seizure, speech problems, tingling, tremors, weakness, others Musculoskeletal: denies: back pain, gout, joint pain, joint swelling, muscle pain, muscle stiffness, neck pain, others Integumetry: denies: bruises, change in color, change in hair/nails, dryness, laceration, lesions, lumps, rash, wounds, others Allergic/Immunocompromised: denies: Difficulty Healing, Frequent Infections, Hives, Itching, others Hematologic/Lymphatic: denies: anemia, blood clots, easy bleeding, easy bruising, swollen glands, others Endocrine: denies: excessive hunger, excessive sweating, excessive thirst, excessive urination, flushing, intolerance to cold, intolerance to heat, unexplained weight gain, unexplained weight loss, others Psychiatric: denies: anxiety, bipolar disorder, depression, hopeless, panic disorder, schizophrenia, sleepless, suicidal, others All Other Systems: Reviewed and Negative Physical Exam General Appearance: Mild Distress HEENT: Other (moist mucous membranes, pupils symmetric, no facial asymmetry) Neck: Full Range of Motion, Normal Inspection Respiratory: Lungs Clear, No Accessory Muscle Use, No Respiratory Distress, Normal Breath Sounds Cardiovascular: No Edema, No JVD, Regular Rate/Rhythm Breast Exam: Deferred Gastrointestinal: Diffuse, Soft, Tenderness Genitalia: Deferred Pelvic: Deferred Rectal: Deferred Extremities: Normal inspection, Normal range of motion, Non-tender, No pedal edema Neurologic: Alert (Oriented x4), Normal Affect, Other (Moves all extremities with adequate strength and tone, no gross focal deficit. Appears anxious.) Cerebellar Function: NOT DONE Reflexes: NOT DONE Skin: Dry, Normal Color, Warm Lymphatic: NOT DONE Was a procedure done? Was a procedure done?: No GI differential Dx Differential Diagnosis: Bowel Obstruction, Constipation, Diverticular disease, Gastritis/PUD, Gastroenteritis, Inflammatory BD, Pancreatitis, UTI, Dehydration, Diabetes/ DKA, Electrolyte Imbalance, Food Poisoning, Bacterial, Parasitic, Viral, Hypovolemia, Impaction, Stress Ulcer, Kidney Stone, Other (colitis) X-Ray, Labs, Meds, VS Vital Signs Date Time Temp Pulse Resp B/P (MAP) Pulse Ox O2 Delivery O2 Flow Rate FiO2 07/16/24 21:00 98.9 100 20 134/86 (102) 94 Lab Test 07/16/24 21:54 Range/Units White Blood Count 16.3 H 4.4-10.8 10^3/uL Red Blood Count 5.59 4.5-5.90 10^6/uL Hemoglobin 17.1 13.5-17.5 g/dL Hematocrit 50.3 41.0-53.0 % Mean Corpuscular Volume 90.0 80.0-100.0 fL Mean Corpuscular Hemoglobin 30.6 28.0-32.0 pg Mean Corpuscular Hemoglobin Concent 34.0 32.0-36.0 g/dL Red Cell Distribution Width 14.1 11.8-14.3 % Platelet Count 275 140-450 10^3/uL Mean Platelet Volume 8.6 6.9-10.8 fL Neutrophils (%) (Auto) 92.1 H 37.0-80.0 % Lymphocytes (%) (Auto) 4.7 L 10.0-50.0 % Monocytes (%) (Auto) 2.7 0.0-12.0 % Eosinophils (%) (Auto) 0.1 0.0-7.0 % Basophils (%) (Auto) 0.4 0.0-2.0 % Neutrophils # (Auto) 15.0 H 1.6-8.6 10 ^3/uL Lymphocytes # (Auto) 0.8 0.4-5.4 10 ^3/uL Monocytes # (Auto) 0.4 0-1.3 10 ^3/uL Eosinophils # (Auto) 0 0-0.8 10 ^3/uL Basophils # (Auto) 0.1 0-0.2 10 ^3/uL Nucleated Red Blood Cells 0.0 % Sodium Level 141 136-145 mmol/L Potassium Level 3.9 3.5-5.1 mmol/L Chloride Level 106 98-107 mmol/L Carbon Dioxide Level 24 20-31 mmol/L Anion Gap 11 5-15 Blood Urea Nitrogen 18 9-23 mg/dL Creatinine 1.23 0.700-1.30 mg/dL Glomerular Filtration Rate Calc 80 >90 mL/min BUN/Creatinine Ratio 14.6 10.0-20.0 Serum Glucose 132 H 74-106 mg/dL Calcium Level 10.6 H 8.7-10.4 mg/dL Total Bilirubin 0.6 0.2-1.0 mg/dL Aspartate Amino Transferase (AST) 14 13-40 U/L Alanine Aminotransferase (ALT) 23 7-40 U/L Alkaline Phosphatase 117 H 46-116 U/L Total Protein 8.0 5.7-8.2 g/dL Albumin 5.3 H 3.2-4.8 g/dL Lipase 49 12-53 U/L [place] [id number] Ph: [phone] DIAGNOSTIC IMAGING Diagnostic Imaging Report : [id number] Signed PATIENT: ALDEN DUFF ACCT: [id number] UNIT: [id number] : 1990 LOC: ER ROOM / BED: / AGE / SEX: 33 / M ADM STATUS: REG ER SERVICE 26 ORDERING PHYSICIAN: ALEX WILLIAMSON MD PROCEDURE(s): ABPL - CT AB PEL WO CON-NO ORAL OR IV REASON: diffuse abd pain n/v ORDER NUMBER(s): [id number], ACCESSION NUMBER(s): [id number] Exam: CT CT AB PEL WO CON-NO ORAL OR IV History: diffuse abd pain n/v Comparison Study: None Technique: Multidetector spiral CT of the abdomen was performed from lung bases to pubic symphysis. Imaging was performed without IV contrast. Axial, coronal and sagittal multiplanar reformats were obtained from the axial data set by the technologist. Radiation Dose : 1. Abdomen/Pelvis: CTDIvol 17 mGy, DLP 961 mGy*cm. Findings: Evaluation of solid organs is limited due to lack of intravenous contrast use. Lung Bases: No acute or significant lung base finding. Normal heart size. No pleural or pericardial effusion. Liver: The liver is normal in size. No focal lesions. Hepatic steatosis. Gallbladder and Biliary Tree: Unremarkable Spleen: Unremarkable Pancreas: The pancreas is grossly normal in appearance. Adrenal Glands: Unremarkable Kidneys: Kidneys are grossly normal without calculi or hydronephrosis. Bladder: Grossly unremarkable for degree of distention. Bowel: The stomach is grossly normal in appearance. Mild wall thickening of multiple small bowel loops in the left upper quadrant may reflect mild enteritis Normal appendix is visualized in the right lower quadrant without findings of appendicitis. Ascites: Absent Lymphadenopathy: No mesenteric, retroperitoneal or periportal lymphadenopathy. Abdominal Wall and Mesentery: Unremarkable. Vasculature: The visualized abdominal aorta is normal in size and caliber. Evaluation of abdominal and pelvic vessels is limited due to lack of intravenous contrast. Pelvic Organs: Unremarkable Musculoskeletal: No aggressive focal bony lesions, acute fractures or dislocation. IMPRESSION: 1. Mild wall thickening of multiple small bowel loops in the left upper quadrant which may reflect mild enteritis. 2. Normal appendix. Radiation optimization: All CT scans at this facility use at least one of these dose optimization techniques: automated exposure control mA and/or kV adjustment per patient size (includes targeted exams where dose is matched to clinical indication) or iterative reconstruction. ATED BY: MARIA GUADALUPE JACOBO MD DICTATED DATE/TIME: 07/16/242211 SIGNED BY: MARIA GUADALUPE JACOBO MD SIGNED DATE/TIME: 07/16/242211 CC: X-Ray, Labs, Meds, VS Comment 33-year-old male with a history of anxiety complaining of diffuse abdominal pain, nausea and vomiting after a tooth extraction. Vitals remarkable for oxygen saturation 94% on room air Exam remarkable for diffuse abdominal tenderness to deep palpation. Nontender to percussion. No rebound or guarding. Rhythm strip independently interpreted by me: Sinus rhythm, rate 100, no ectopy. CT abdomen and pelvis: IMPRESSION: 1. Mild wall thickening of multiple small bowel loops in the left upper quadrant which may reflect mild enteritis. 2. Normal appendix. CBC remarkable for WBC 16.3, CMP and lipase unremarkable for any abnormality of acute significance. Patient did not provide a urine sample. Patient treated with the following in the ED: 1 L 0.9 normal saline IV bolus, morphine 4 mg IV, Zofran 4 mg IV, Ativan 1 mg IV On re-evaluation, patient states pain has improved. Vitals are stable. Repeat abdominal exam benign. Tolerated p.o. fluids. Hospitalization was considered, however patient had rapid improvement of symptoms with treatment in the ED, and I no longer feel hospitalization is necessary. Patient now appears stable for outpatient treatment with close follow-up with his primary physician. Rx Zofran, Bentyl, Cipro, Flagyl Time of 1ST Reevaluation: 21:49 Reevaluation 1ST: Unchanged Time of 2ND Reevaluation: 23:42 Reevaluation 2ND: Improved Patient Education/Counseling: Diagnosis, Treatment, Prognosis Family Education/Counseling: No Family Present Additional Information I reviewed the following notes from patient's past medical encounters: The following tests were ordered, and results were reviewed by me: CBC, CMP, UA, LIPASE, CT AB PEL WO CON Additional Information was gathered from interviewing the following independent historians: EMS I reviewed and agreed with the following test results read by other providers: CT AB PEL WO CON I discussed treatment and results with medical personnel and: patient Departure 1 Departure Time of Disposition: 23:42 Impression: Primary Impression: Abdominal pain Qualified Codes: R10.84 - Generalized abdominal pain Additional Impression: Nausea and vomiting Qualified Codes: R11.2 - Nausea with vomiting, unspecified Disposition: 01 HOME / SELF CARE / HOMELESS Condition: Stable Additional Instructions: Your blood tests showed an elevated white blood cell count, which can be due to vomiting, stress, or the presence of an infection. Your CT scan showed you may have enteritis, which is often caused by intestinal viruses. I have prescribed medication for your symptoms and antibiotics to cover a possible bacterial intestinal infection. Follow-up with your primary doctor in 1-2 days. Return to ER for persistent or worsening symptoms. e-Prescriptions Ondansetron Odt 4MG Tab (ZOFRAN PO) 4 Mg Tb 4 MG PO TID PRN, #30 TAB prn nausea/vomiting ODT TAB-DISSOLVE IN MOUTH, THEN SWALLOW Prov: ALEX WILLIAMSON MD 07/16/24 Dicyclomine Hcl (BENTYL CAPSULE) 10 Mg Cp 2 CAP PO Q6HP PRN, #30 CAP 11 Refills prn abdominal pain Prov: ALEX WILLIAMSON MD 07/16/24 Metronidazole (Flagyl) 500 Mg Tab 1 TAB PO TID for 7 Days, #21 TAB Prov: ALEX WILLIAMSON MD 07/16/24 Ciprofloxacin Hcl (Cipro) 500 Mg Tab 1 TAB PO BID for 7 Days, #14 TAB Prov: ALEX WILLIAMSON MD 07/16/24 Discharged With: Relative (Mother) Critical Care Note Critical Care Time?: No Stability Stability form required: No Heart Score Heart Score: Heart Score Response (Comments) Value History N/A 0 EKG N/A 0 Age N/A 0 Risk Factors N/A 0 Troponin N/A 0 Total 0 I personally scribed for ALEX WILLIAMSON MD ([email or web address]) on 07/16/24 at 21:32. Electronically submitted by Nat Lacey ([email or web address]). I personally scribed for ALEX WILLIAMSON MD ([email or web address]) on 07/16/24 at 21:44. Electronically submitted by Nat Lacey ([email or web address]). I personally scribed for ALEX WILLIAMSON MD ([email or web address]) on 07/16/24 at 22:39. Electronically submitted by Nat Lacey ([email or web address]). ALEX WILLIAMSON MD Jul 16, 2024 21:32
[2024-07-16 22:04] LABS: Basophils # (auto) 0.1 10 ^3/uL (0-0.2); Basophils % (auto) 0.4 % (0.0-2.0); Eosinophils # (auto) 0 10 ^3/uL (0-0.8); Eosinophils % (auto) 0.1 % (0.0-7.0); Hematocrit 50.3 % (41.0-53.0); Hemoglobin 17.1 g/dL (13.5-17.5); Lymphocytes # (auto) 0.8 10 ^3/uL (0.4-5.4); Lymphocytes % (auto) 4.7 % (10.0-50.0); Mean Corpuscular Hemoglobin 30.6 pg (28.0-32.0); Monocytes # (auto) 0.4 10 ^3/uL (0-1.3); Monocytes % (auto) 2.7 % (0.0-12.0); Neutrophils % (auto) 92.1 % (37.0-80.0); Platelet Count (auto) 275 10^3/uL (140-450); Red Blood Cells 5.59 10^6/uL (4.5-5.90); Red Cell Distribution Width 14.1 % (11.8-14.3); White Blood Cell 16.3 10^3/uL (4.4-10.8)
--- NOTE | 2024-07-16 22:15 | DVH ---
Exam: CT CT AB PEL WO CON-NO ORAL OR IV History: diffuse abd pain n/v Comparison Study: None Technique: Multidetector spiral CT of the abdomen was performed from lung bases to pubic symphysis. Imaging was performed without IV contrast. Axial, coronal and sagittal multiplanar reformats were ob tained from the axial data set by the technologist. Radiation Dose : 1. Abdomen/Pelvis: CTDIvol 17 mGy, DLP 961 mGy*cm. Findings: Evaluation of solid organs is limited due to lack of intravenous contrast use. Lung Bases: No acute or significant lung base finding. Normal heart size. No pleural or pericardial effusion. Liver: The liver is normal in size. No focal lesions. Hepatic steatosis. Gallbladder and Biliary Tree: Unremarkable Spleen: Unremarkable Pancreas: The pancreas is grossly normal in appearance. Adrenal Glands: Unremarkable Kidneys: Kidneys are grossly normal without calculi or hydronephrosis. Bladder: Grossly unremarkable for degree of distention. Bowel: The stomach is grossly normal in appearance. Mild wall thickening of multiple small bowel loop s in the left upper quadrant may reflect mild enteritis Normal appendix is visualized in the right l ower quadrant without findings of appendicitis. Ascites: Absent Lymphadenopathy: No mesenteric, retroperitoneal or periportal lymphadenopathy. Abdominal Wall and Mesentery: Unremarkable. Vasculature: The visualized abdominal aorta is normal in size and caliber. Evaluation of abdominal a nd pelvic vessels is limited due to lack of intravenous contrast. Pelvic Organs: Unremarkable Musculoskeletal: No aggressive focal bony lesions, acute fractures or dislocation. IMPRESSION: 1. Mild wall thickening of multiple small bowel loops in the left upper quadrant which may reflect mi ld enteritis. 2. Normal appendix. Radiation optimization: All CT scans at this facility use at least one of these dose optimization cara hniques: automated exposure control mA and/or kV adjustment per patient size (includes targeted exam s where dose is matched to clinical indication) or iterative reconstruction.
[2024-07-16 22:25] LABS: Alanine Aminotransferase 23 U/L (7-40); Anion Gap 11 (5-15); Aspartate Aminotransferase 14 U/L (13-40); BUN/Creatinine Ratio 14.6 (10.0-20.0); Bilirubin, Total 0.6 mg/dL (0.2-1.0); Blood Urea Nitrogen 18 mg/dL (9-23); Carbon Dioxide 24 mmol/L (20-31); Chloride 106 mmol/L (98-107); Lipase 49 U/L (12-53); Potassium 3.9 mmol/L (3.5-5.1); Sodium 141 mmol/L (136-145)
[2024-07-16 22:32] LABS: Albumin 5.3 g/dL (3.2-4.8); Alkaline Phosphatase 117 U/L (46-116); Calcium 10.6 mg/dL (8.7-10.4); Glucose 132 mg/dL (74-106)
[2024-07-16] MEDS ORDERED: ZOFR4T PO (23:49)
[2024-07-16] MEDS ORDERED: CIPR-173 PO (23:49)
[2024-07-16] MEDS ORDERED: DICY10CA PO (23:49)
[2024-07-16] MEDS ORDERED: METR-344 PO (23:49)
[2024-07-17] MEDS: SODIUM CHLORIDE 0.9% 1,000 ML IV ONE (02:28)
[2024-07-17 02:43] VITALS: TEMP 98.3
[2024-07-17] MEDS: ONDANSETRON HCL 4 MG/2 ML VIAL IV ONE ×2 (03:08→05:14)
[2024-07-17] MEDS: MORPHINE SULFATE 4 MG/ML SYR/VIAL IV ONE (03:09)
[2024-07-17 05:41] VITALS: BP 152/89; PULSE 68; RESP 20; O2SAT 97
== END 2024-07-17 05:55 | disposition home or self-care (01) ==
LOC: EDSEX 20:56 → EDBD 20:56 → ER 20:56
DX: R10.84 Generalized abdominal pain (principal); R11.2 Nausea with vomiting, unspecified; F41.9 Anxiety disorder, unspecified; F17.210 Nicotine dependence, cigarettes, uncomplicated; F15.90 Other stimulant use, unspecified, uncomplicated; Z90.89 Acquired absence of other organs; Z98.890 Other specified postprocedural states; Z88.0 Allergy status to penicillin; Z88.5 Allergy status to narcotic agent; Z79.899 Other long term (current) drug therapy
CPT/HCPCS: 36415; 74176; 80053; 83690; 85025; 96361; 96374; 96375; 96376; 99285; J2270; J2405; J7030

== ENCOUNTER 2024-09-24 15:29 | Emergency (ER) | payer MEDICAID ==
[~2024-09-24] VITALS: Ht 177.8 cm; Wt 100.0 kg
[~2024-09-24 15:29] MED LIST changes: +CIPR-173 PO; +DICY10CA PO; +METR-344 PO; +ZOFR4T PO
--- NOTE | 2024-09-24 16:15 | ED.PDOC ---
History of Present Illness HPI Comments 33-year-old male who comes in with chief complaint of suicidal ideation. The patient took approximately six tablets of 600 mg Seroquel at 1:45 p.m. today. According to the paramedics, the patient had an argument with his mother. [employer]'s were called and on scene the patient became somewhat violent so the p atient was placed in four-point restraints. The patient then stated that he wanted to kill himself. He was transported to our facility. Upon arrival, the patient was answering all questions appropriately. He does admit to suicidal ideation. Chief Complaint: Suicidal Time Seen by MD: 15:31 Primary Care Provider: NONE Reviewed Notes: Nurses Notes, [place] Worker Notes, Medications, Allergies (Allergies to codeine and penicillin) Allergies: Coded Allergies: Codeine (Verified Allergy, Unknown, 12/15/15) Penicillins (Verified Allergy, Unknown, 12/15/15) Home Meds Active Scripts Ondansetron Odt 4MG Tab (ZOFRAN PO) 4 Mg Tb, 4 MG PO TID PRN, #30 TAB prn nausea/vomiting ODT TAB-DISSOLVE IN MOUTH, THEN SWALLOW Prov:ALEX WILLIAMSON MD 07/16/24 Dicyclomine Hcl (BENTYL CAPSULE) 10 Mg Cp, 2 CAP PO Q6HP PRN, #30 CAP 11 Refills prn abdominal pain Prov:ALEX WILLIAMSON MD 07/16/24 Metronidazole (Flagyl) 500 Mg Tab, 1 TAB PO TID for 7 Days, #21 TAB Prov:ALEX WILLIAMSON MD 07/16/24 Ciprofloxacin Hcl (Cipro) 500 Mg Tab, 1 TAB PO BID for 7 Days, #14 TAB Prov:ALEX WILLIAMSON MD 07/16/24 Sucralfate (CARAFATE) 1 Gm Tab, 1 GM OR QIDACHS for 30 Days, #120 TAB Prov:NICO TODD MD 12/03/22 Pantoprazole Sodium Sesquihydr (Protonix) 40 Mg Tab, 40 MG PO BIDAC for 30 Days, #60 TAB Prov:NICO TODD MD 12/03/22 Metronidazole (Flagyl) 500 Mg Tab, 500 MG PO TID for 5 Days, #15 TAB Prov:NICO TODD MD 12/03/22 Cephalexin ( Keflex 500) 500 Mg Cap, 1 CAP PO QID for 5 Days, #20 CAP Prov:NICO TODD MD 12/03/22 Reported Medications Quetiapine Fumerate (QUETIAPINE FUMARATE) 200 Mg Tab, 200 MG PO HS, TAB 08/18/21 Cholecalciferol (VITAMIN D3) 2,000 Unit Tab, 125 TAB PO DAILY, #30 TAB 5 Refills 08/15/21 Fluoxetine HCl (Fluoxetine) 60 Mg Tab, 40 MG PO DAILY, TAB 08/15/21 Pantoprazole Sodium Sesquihydr (Protonix) 40 Mg Tab, 40 MG PO DAILY, #30 TAB 05/06/15 Oxcarbazepine (TRILEPTAL TABLET) 300 Mg Tb, 1 TAB PO BID, #60 TAB 05/06/15 Information Source: Patient, Emergency Med Personnel Mode of Arrival: EMS Severity: Moderate Timing: Hours Duration: Since onset Prehospital treatment: 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 Marketing Specialist, IVF Associated signs and symptoms No nausea or vomiting Past Medical History PAST MEDICAL HISTORY: Anxiety, Kidney Stones Past Medical History (Other): ADHD, bipolar disorder Surgical History: Tonsillectomy Surgical History (Other): Right hand surgery Family History Family History: No family hx of DM Social History Smoker: Cigarettes, Less Than 1 Pack/Day Alcohol: Occasionally Drugs: Marijuana Lives In: Home Constitutional: denies: chills, diaphoresis, fatigue, fever, malaise, sweats, weakness, others EENTM: denies: blurred vision, double vision, ear bleeding, ear discharge, ear drainage, ear pain, ear ringing, eye pain, eye redness, hearing loss, mouth pain, mouth swelling, nasal discharge, nose bleeding, nose congestion, nose pain, photophobia, tearing, throat pain, throat swelling, voice changes, others Respiratory: denies: cough, hemoptysis, orthopnea, SOB at rest, shortness of breath, SOB with excertion, stridor, wheezing, others Cardiovascular: denies: chest pain, dizzy spells, diaphoresis, Dyspnea on exertion, edema, irregular heart beat, left arm pain, lightheadedness, palpitations, PND, syncope, others Gastrointestinal: denies: abdomen distended, abdominal pain, blood streaked bowels, constipated, diarrhea, dysphagia, difficulty swallowing, hematemesis, melena, nausea, poor appetite, poor fluid intake, rectal bleeding, rectal pain, vomiting, others Genitourinary: denies: burning, dysuria, flank pain, frequency, hematuria, incontinence, penile discharge, penile sore, pain, testicle pain, testicle swelling, urgency, others Neurological: denies: dizziness, fainting, headache, left sided numbness, left sided weakness, numbness, paresthesia, pre-existing deficit, right sided numbness, right sided weakness, seizure, speech problems, tingling, tremors, weakness, others Musculoskeletal: denies: back pain, gout, joint pain, joint swelling, muscle pain, muscle stiffness, neck pain, others Integumetry: denies: bruises, change in color, change in hair/nails, dryness, laceration, lesions, lumps, rash, wounds, others Allergic/Immunocompromised: denies: Difficulty Healing, Frequent Infections, Hives, Itching, others Hematologic/Lymphatic: denies: anemia, blood clots, easy bleeding, easy bruising, swollen glands, others Endocrine: denies: excessive hunger, excessive sweating, excessive thirst, excessive urination, flushing, intolerance to cold, intolerance to heat, unexplained weight gain, unexplained weight loss, others Psychiatric: reports: suicidal (Overdose); denies: anxiety, bipolar disorder, depression, hopeless, panic disorder, schizophrenia, sleepless, others Physical Exam General Appearance: No Apparent Distress HEENT: Normal ENT Inspection, Pharynx Normal, TMs Normal Neck: Full Range of Motion, Non-Tender, Normal, Normal Inspection Respiratory: Chest Non-Tender, Lungs Clear, No Accessory Muscle Use, No Respiratory Distress, Normal Breath Sounds Cardiovascular: No Edema, No JVD, No Murmur, No Gallop, Normal Peripheral Pulses, Regular Rate/Rhythm Breast Exam: Deferred Gastrointestinal: No Organomegaly, Non Tender, No Pulsatile Mass, Normal Bowel Sounds, Soft Genitalia: Deferred Pelvic: Deferred Rectal: Deferred Extremities: No calf tenderness, Normal capillary refill, Normal inspection, Normal range of motion, Non-tender, No pedal edema Musculoskeletal : Apperance: Normal Neurologic: Alert, manager of product II-XII nml as Tested, No Motor Deficits, No Sensory Deficits, Other (Depressed mood and affect) Cerebellar Function: Normal Reflexes: Normal Skin: Dry, Normal Color, Warm Lymphatic: No Adenopathy Was a procedure done? Was a procedure done?: No Differential Dx Considerations may include: Suicidal ideation, overdose, generalized weakness, depression X-Ray, Labs, Meds, VS Vital Signs Date Time Temp Pulse Resp B/P (MAP) Pulse Ox O2 Delivery O2 Flow Rate FiO2 09/24/24 20:34 112 09/24/24 20:00 112 09/24/24 18:59 110 22 97 Room Air* 0 21 09/24/24 18:45 98.6 114 22 110/60 (77) 96 98.6 09/24/24 15:29 100.0 149 16 141/96 (111) 99 100.0 Lab Test 09/24/24 16:44 Range/Units White Blood Count 9.2 4.4-10.8 10^3/uL Red Blood Count 5.17 4.5-5.90 10^6/uL Hemoglobin 15.9 13.5-17.5 g/dL Hematocrit 47.1 41.0-53.0 % Mean Corpuscular Volume 91.0 80.0-100.0 fL Mean Corpuscular Hemoglobin 30.7 28.0-32.0 pg Mean Corpuscular Hemoglobin Concent 33.8 32.0-36.0 g/dL Red Cell Distribution Width 13.7 11.8-14.3 % Platelet Count 201 140-450 10^3/uL Mean Platelet Volume 8.8 6.9-10.8 fL Neutrophils (%) (Auto) 67.7 37.0-80.0 % Lymphocytes (%) (Auto) 24.8 10.0-50.0 % Monocytes (%) (Auto) 5.4 0.0-12.0 % Eosinophils (%) (Auto) 1.2 0.0-7.0 % Basophils (%) (Auto) 0.9 0.0-2.0 % Neutrophils # (Auto) 6.2 1.6-8.6 10 ^3/uL Lymphocytes # (Auto) 2.3 0.4-5.4 10 ^3/uL Monocytes # (Auto) 0.5 0-1.3 10 ^3/uL Eosinophils # (Auto) 0.1 0-0.8 10 ^3/uL Basophils # (Auto) 0.1 0-0.2 10 ^3/uL Nucleated Red Blood Cells 0.1 % Sodium Level 143 136-145 mmol/L Potassium Level 4.1 3.5-5.1 mmol/L Chloride Level 115 H 98-107 mmol/L Carbon Dioxide Level 21 20-31 mmol/L Anion Gap 7 5-15 Blood Urea Nitrogen 12 9-23 mg/dL Creatinine 1.28 0.700-1.30 mg/dL Glomerular Filtration Rate Calc 76 >90 mL/min BUN/Creatinine Ratio 9.4 L 10.0-20.0 Serum Glucose 138 H 74-106 mg/dL Calcium Level 9.5 8.7-10.4 mg/dL Magnesium Level 2.1 1.6-2.6 mg/dL Salicylates Level < 3.0 -30 mg/dL Acetaminophen Level < 2.0 L 10.0-20.0 UG/ML Plasma/Serum Blood Alcohol 4.2 <10 mg/dL IV Hep-Lock was established. Poison control was called. The patient was currently being monitored It was not necessary for the patient to do given charcoal at this time We did monitor the patient here in the emergency department's The CBC is within normal limits The chemistry panel is within normal limits The salicylate level is within normal limits The acetaminophen level is within normal limits The alcohol level is negative The patient is medically cleared The patient was awaiting evaluation by the telemedicine psychiatrist Time of 1ST Reevaluation: 16:15 Reevaluation 1ST: Unchanged Patient Education/Counseling: Diagnosis, Treatment, Prognosis Family Education/Counseling: No Family Present Departure 1 Departure Time of Disposition: 21:21 Impression: Primary Impression: Overdose Qualified Codes: T50.902A - Poisoning by unspecified drugs, medicaments and biological substances, intentional self-harm, initial encounter Additional Impression: Suicidal ideation Disposition: 30 STILL A PATIENT Condition: Fair Critical Care Note Critical Care Time?: No Stability Stability form required: No Heart Score Heart Score: Heart Score Response (Comments) Value History N/A 0 EKG N/A 0 Age N/A 0 Risk Factors N/A 0 Troponin N/A 0 Total 0 ROXY PALOMO MD Sep 24, 2024 16:15
[2024-09-24 16:57] LABS: Basophils # (auto) 0.1 10 ^3/uL (0-0.2); Basophils % (auto) 0.9 % (0.0-2.0); Eosinophils # (auto) 0.1 10 ^3/uL (0-0.8); Eosinophils % (auto) 1.2 % (0.0-7.0); Hematocrit 47.1 % (41.0-53.0); Hemoglobin 15.9 g/dL (13.5-17.5); Lymphocytes # (auto) 2.3 10 ^3/uL (0.4-5.4); Lymphocytes % (auto) 24.8 % (10.0-50.0); Mean Corpuscular Hemoglobin 30.7 pg (28.0-32.0); Mean Corpuscular Hgb Conc. 33.8 g/dL (32.0-36.0); Monocytes # (auto) 0.5 10 ^3/uL (0-1.3); Monocytes % (auto) 5.4 % (0.0-12.0); Neutrophils # (auto) 6.2 10 ^3/uL (1.6-8.6); Neutrophils % (auto) 67.7 % (37.0-80.0); Nucleated Red Blood Cells % 0.1 %; Platelet Count (auto) 201 10^3/uL (140-450); Red Blood Cells 5.17 10^6/uL (4.5-5.90); Red Cell Distribution Width 13.7 % (11.8-14.3); White Blood Cell 9.2 10^3/uL (4.4-10.8)
[2024-09-24 17:10] LABS: Potassium 4.1 mmol/L (3.5-5.1); Sodium 143 mmol/L (136-145)
[2024-09-24 17:11] LABS: Anion Gap 7 (5-15); Calcium 9.5 mg/dL (8.7-10.4); Carbon Dioxide 21 mmol/L (20-31)
[2024-09-24 17:16] LABS: BUN/Creatinine Ratio 9.4 (10.0-20.0); Blood Urea Nitrogen 12 mg/dL (9-23)
[2024-09-24 17:17] LABS: Blood Alcohol 4.2 mg/dL (<10); Chloride 115 mmol/L (98-107); Glucose 138 mg/dL (74-106)
[2024-09-24 17:21] LABS: Acetaminophen < 2.0 UG/ML (10.0-20.0); Salicylate < 3.0 mg/dL (-30)
[2024-09-24 18:59] VITALS: PULSE 110; RESP 22; O2SAT 97
[2024-09-24 20:00] VITALS: PULSE 110; RESP 24; O2SAT 96
[2024-09-25 02:16] LABS: Benzodiazephine Screen, Urine Neg (NEGATIVE)
[2024-09-25 02:17] LABS: Amphetamine Screen, Urine Neg (NEGATIVE); Barbiturate Scree,Urine Neg (NEGATIVE); Cannabinoid Screen, Urine Pos (NEGATIVE); Cocaine Screen, Urine Neg (NEGATIVE); Opiate Scree,Urine Neg (NEGATIVE); Phencyclidine Screen, Urine Neg (NEGATIVE)
[2024-09-25] MEDS: LORazepam 2MG/ML-1ML VIAL ONE (02:57)
[2024-09-25] MEDS: LORazepam 2MG/ML-1ML VIAL IM ONE (02:58)
[2024-09-25] MEDS: diphenhdrAMINE HCL 50 MG/1 ML VL IM ONE (02:58)
[2024-09-25] MEDS: diphenhdrAMINE HCL 50 MG/1 ML VL ONE (02:58)
[2024-09-25] MEDS: HALOPERIDOL LACTATE 5 MG/ML INJ VIAL IM ONE (02:59)
--- NOTE | 2024-09-25 06:10 | ECG ---
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
[2024-09-25 11:06] VITALS: PULSE 103; RESP 14; O2SAT 94
--- NOTE | 2024-09-25 14:45 | DVHINCON2 ---
Date of Service if different f: Sep 25, 2024 Consultation ([facility]) Progress: Somewhat better Labs Laboratory Tests Test 09/24/24 16:44 09/25/24 01:35 White Blood Count 9.2 10^3/uL (4.4-10.8) Red Blood Count 5.17 10^6/uL (4.5-5.90) Hemoglobin 15.9 g/dL (13.5-17.5) Hematocrit 47.1 % (41.0-53.0) Mean Corpuscular Volume 91.0 fL (80.0-100.0) Mean Corpuscular Hemoglobin 30.7 pg (28.0-32.0) Mean Corpuscular Hemoglobin Concent 33.8 g/dL (32.0-36.0) Red Cell Distribution Width 13.7 % (11.8-14.3) Platelet Count 201 10^3/uL (140-450) Mean Platelet Volume 8.8 fL (6.9-10.8) Neutrophils (%) (Auto) 67.7 % (37.0-80.0) Lymphocytes (%) (Auto) 24.8 % (10.0-50.0) Monocytes (%) (Auto) 5.4 % (0.0-12.0) Eosinophils (%) (Auto) 1.2 % (0.0-7.0) Basophils (%) (Auto) 0.9 % (0.0-2.0) Neutrophils # (Auto) 6.2 10 ^3/uL (1.6-8.6) Lymphocytes # (Auto) 2.3 10 ^3/uL (0.4-5.4) Monocytes # (Auto) 0.5 10 ^3/uL (0-1.3) Eosinophils # (Auto) 0.1 10 ^3/uL (0-0.8) Basophils # (Auto) 0.1 10 ^3/uL (0-0.2) Nucleated Red Blood Cells 0.1 % Sodium Level 143 mmol/L (136-145) Potassium Level 4.1 mmol/L (3.5-5.1) Chloride Level 115 mmol/L (98-107) Carbon Dioxide Level 21 mmol/L (20-31) Anion Gap 7 (5-15) Blood Urea Nitrogen 12 mg/dL (9-23) Creatinine 1.28 mg/dL (0.700-1.30) Glomerular Filtration Rate Calc 76 mL/min (>90) BUN/Creatinine Ratio 9.4 (10.0-20.0) Serum Glucose 138 mg/dL (74-106) Calcium Level 9.5 mg/dL (8.7-10.4) Magnesium Level 2.1 mg/dL (1.6-2.6) Salicylates Level < 3.0 mg/dL (-30) Acetaminophen Level < 2.0 UG/ML (10.0-20.0) Plasma/Serum Blood Alcohol 4.2 mg/dL (<10) Urine Opiates Screen Neg (NEGATIVE) Urine Fentanyl Screen Neg (NEGATIVE) Urine Barbiturates Screen Neg (NEGATIVE) Urine Phencyclidine Screen Neg (NEGATIVE) Urine Amphetamines Screen Neg (NEGATIVE) Urine Benzodiazepines Screen Neg (NEGATIVE) Urine Cocaine Screen Neg (NEGATIVE) Urine Cannabinoids Screen Pos (NEGATIVE) Appetite: Fair Appearance: Stated age, Disheveled Psychomotor activity: WNL Behavioral: Cooperative Eye contact: Appropriate Speech: WNL Affect: Mood Congruent Mood: Anxious Thought processes: Linear/Goal-directed Thought content: WNL Suicidal ideations: Absent Homicidal ideations: Absent Orientation: Person, Place, Time, Situation Memory intact: Recent Intellect: Average Abstractability: WNL Concentration: Adequate Attention: Adequate Judgement: WNL Insight: Fair Vitals Vital Signs Date Time Temp Pulse Resp B/P (MAP) Pulse Ox O2 Delivery O2 Flow Rate FiO2 09/25/24 11:06 103 14 94 Room Air* 0 21 09/25/24 10:57 98.3 130/63 (85) 98.3 Medication adjusted: No Diagnosis: unspecified mood disorder r/o bipolar disorder Plan : Pt currently denies Si/Hi and does not wish to be hospitalized. he reports upcoming appt on October 01 for intake. Recommend discharge and follow up with outpatient appt. Discussed returning to ED if Si/Hi History of Present Illness Reason for Consult : suicidal ideation HPI : This is a 33-year-old male with prior psychiatric history, he presented to the hospital after taking six tablets of Seroquel 100mg after argument with mom. Patient is evaluated via Telepsychiatry. On evaluation, he reports feeling irritable and had argument with mom. He reports he was not going to take the pills but did, only because mom was egging me on. He reports mom was saying youre a wimp, youre not really going to do it. So he took the pills. After ingesting the pills, mom was crying and rushing to call 911. He reports it was a mistake and he just wants to go home. He denies thoughts of not wanting to be alive. He does often feel depressed and most of his family do not like him. He denies suicidal/homicidal ideation. He denies auditory/visual hallucinations or paranoid thoughts. He reports sleep is variable, seroquel does help with sleep. He reports good appetite. He denies feeling hopeless or anhedonia. He cannot recall if has past mitchell episodes Past Psychiatric History : He reports prior diagnosis of depression, maybe bipolar disorder and ADHD. He stopped outpatient follow up but reports appt with [facility] on October 01. He is prescribed seroquel 100mg. he no longer uses fluoxetine as it was not helping him. He has prior psych admission last about 1-2 years ago. He did have prior suicide attempt at 18 with OD on pills. He sometimes cuts his arm, last was 2 years ago. Past Medical History : He denies Social History : He lives with mom. He is single, unemployed and receives SSI for mental health disability. He denies any known family history. He uses marijuana usually daily for his anxiety. He uses alcohol occasionally. He denies substance use on day of admission here. He denies other substance use. ABRAHAM [facility] Sep 25, 2024 14:45
[2024-09-25 16:54] VITALS: BP 114/78; PULSE 77; RESP 16; TEMP 98; O2SAT 97
== END 2024-09-25 17:07 | disposition home or self-care (01) ==
LOC: EDBD 15:29 → ER 15:29
DX: T43.591A Poisoning by other antipsychotics and neuroleptics, accidental (unintentional), initial encounter (principal); R45.851 Suicidal ideations; F41.9 Anxiety disorder, unspecified; F31.9 Bipolar disorder, unspecified; F17.210 Nicotine dependence, cigarettes, uncomplicated; F12.90 Cannabis use, unspecified, uncomplicated; Z98.890 Other specified postprocedural states; Z90.89 Acquired absence of other organs; Z88.0 Allergy status to penicillin; Z88.6 Allergy status to analgesic agent; Z79.899 Other long term (current) drug therapy; Z88.5 Allergy status to narcotic agent; Y92.89 Other specified places as the place of occurrence of the external cause
CPT/HCPCS: 36415; 80048; 80307; 80320; 80329; 83735; 85025; 93005; 96372; 99285; J1200; J1630; J2060

== ENCOUNTER 2024-11-28 17:28 | Inpatient (IN) | payer MEDICAID ==
[~2024-11-28] VITALS: Ht 177.8 cm; Wt 110.0 kg
[~2024-11-28 17:28] MED LIST changes: +BUSP5TAB51 PO; +CHOL50007 PO; +CLON-857 PO; +DULO1CAP5 PO; +HYDR1CAP27 PO; +IBUP-1455 PO; +KETO2CRE4 TOP; +QUET300T24 PO
[2024-11-28] MEDS: SODIUM CHLORIDE 0.9% 1,000 ML IV ONE ×3 (17:53→21:00)
--- NOTE | 2024-11-28 17:55 | ED.PDOC ---
HPI Comments HPI: 33-year-old male BIBA with prior medical history of what is pasted below and chief complaint of generally weak. Patient reports that he took drugs acid, and currently has soreness and body aches. Patient reports on having the symptoms for 2-3 days does not move was I/O on the left humerus. Vitals Heart rate: 160 Blood pressure: 60/50 Past Medical History: Anxiety, kidney stones, ADHD, bipolar disorder Past Surgical History: Tonsillectomy, right hand surgery Social History: Occasional/heavy alcohol use, Substance use-acid HPI: Poor Historian. 33-year-old male brought in by ambulance from home because mom called 911. Patient has been weak and laying in bed for the last two days after he took a h it of acid. Patient denies any use of alcohol. Patient complains of generalized body aches. Per EMS, initial heart rate was in the 160s and blood pressure systolic was in the 60s. IO was started on the left shoulder by EMS and fluid resuscitation started in route. Upon arrival patient appears to be frail weak and very dehydrated. Patient is covered in feces. Patient states he was too weak to run to make it to the bathroom on time. Patient states however he has been ambulating from time to time at home. REVIEW OF SYSTEMS: CONSTITUTIONAL: Denies acute: fever, diaphoresis, chills, HEAD: Denies acute: headache, photophobia Eyes: Denies acute: Double vision, vision loss, eye pain, eye discharge. EARS: Denies acute: tinnitus, hearing loss, ear discharge, ear pain, THROAT: Denies acute: sore throat, swelling, difficulty swallowing , pain with swallowing, change in voice. NECK: Denies acute: neck pain, neck swelling, stiff neck. HEART: Denies acute : chest pain, palpitations, LUNGS: Denies acute: SOB, wheezing, cough, hemoptysis ABDOMEN: Denies acute: abdominal pain, Nausea, Vomiting, diarrhea, melena , hematemesis, hematochezia SKIN: Denies acute: rash, redness, lesions, itchiness. EXTREMITIES: Denies acute: calf pain, numbness, tingling, weakness, denies pain in extremity. Denies acute: Low back pain. Neuro: Denies acute: focal neurological deficit, motor or sensory focal neurological deficit, tremors, seizure like activity, confusion, dizziness, change in mental status, loss of bowel or bladder function, cauda equina like symptoms. : Denies acute: dysuria, hematuria, flank pain, increase in urinary frequency. PSYCH: Denies acute: hallucination, suicidal ideation, homicidal ideation. PHYSICAL EXAM: General: ---[id number]-----acute distress, awake and alert. Head: normocephalic, atraumatic. Neck: supple, trachea is midline, no swelling. Throat: Normal phonation. DRY ORAL MUCOSA Eyes:, no erythema, no purulent discharge, no proptosis, no icterus. Heart: regular tachycardic, no significant murmur appreciated. Lungs: no apparent respiratory distress, Able to speak in full sentences. No wheezing, no rhonchi, no crackles. No stridors Clear to auscultation bilaterally. Abdomen: non tender to palpation, non distended, soft, no guarding, no rebound, + bowel sounds. Neuro: Awake, Alert, oriented to name, self, situation, follows commands GCS=15. Speech is normal. Skin: no petechia, no purpura, no cyanosis, non-pale, not jaundice. Lower extremities: --no - Pitting edema no deformity, no focal swelling, no calf TTP. Makes eye contact. moves all four extremities. Face: no apparent facial droop. No nuchal rigidity, Kernig's sign, Brudzinski's sign, no meningeal signs. ED COURSE: Chief Complaint: ALOC Time Seen by MD: 17:35 Primary Care Provider: NONE Reviewed Notes: Nurses Notes, Medications, Allergies Allergies: Coded Allergies: Codeine (Verified Allergy, Unknown, 12/15/15) Penicillins (Verified Allergy, Unknown, 12/15/15) Home Meds Active Scripts Ondansetron Odt 4MG Tab (ZOFRAN PO) 4 Mg Tb, 4 MG PO TID PRN, #30 TAB prn nausea/vomiting ODT TAB-DISSOLVE IN MOUTH, THEN SWALLOW Prov:ALEX WILLIAMSON MD 07/16/24 Dicyclomine Hcl (BENTYL CAPSULE) 10 Mg Cp, 2 CAP PO Q6HP PRN, #30 CAP 11 Refills prn abdominal pain Prov:ALEX WILLIAMSON MD 07/16/24 Metronidazole (Flagyl) 500 Mg Tab, 1 TAB PO TID for 7 Days, #21 TAB Prov:ALEX WILLIAMSON MD 07/16/24 Ciprofloxacin Hcl (Cipro) 500 Mg Tab, 1 TAB PO BID for 7 Days, #14 TAB Prov:ALEX WILLIAMSON MD 07/16/24 Sucralfate (CARAFATE) 1 Gm Tab, 1 GM OR QIDACHS for 30 Days, #120 TAB Prov:NICO TODD MD 12/03/22 Pantoprazole Sodium Sesquihydr (Protonix) 40 Mg Tab, 40 MG PO BIDAC for 30 Days, #60 TAB Prov:NICO TODD MD 12/03/22 Metronidazole (Flagyl) 500 Mg Tab, 500 MG PO TID for 5 Days, #15 TAB Prov:NICO TODD MD 12/03/22 Cephalexin ( Keflex 500) 500 Mg Cap, 1 CAP PO QID for 5 Days, #20 CAP Prov:NICO TODD MD 12/03/22 Reported Medications Quetiapine Fumerate (QUETIAPINE FUMARATE) 200 Mg Tab, 200 MG PO HS, TAB 08/18/21 Cholecalciferol (VITAMIN D3) 2,000 Unit Tab, 125 TAB PO DAILY, #30 TAB 5 Refills 08/15/21 Fluoxetine HCl (Fluoxetine) 60 Mg Tab, 40 MG PO DAILY, TAB 08/15/21 Pantoprazole Sodium Sesquihydr (Protonix) 40 Mg Tab, 40 MG PO DAILY, #30 TAB 05/06/15 Oxcarbazepine (TRILEPTAL TABLET) 300 Mg Tb, 1 TAB PO BID, #60 TAB 05/06/15 Information Source: Patient Mode of Arrival: Ambulatory Severity: Moderate Timing: Days Duration: Since onset, Days Past Medical History PAST MEDICAL HISTORY: Anxiety, Kidney Stones Past Medical History (Other): ADHD, bipolar disorder Surgical History: Tonsillectomy Surgical History (Other): Right hand surgery Family History Family History: Reviewed,noncontributory to illness, Unknown Social History Smoker: Unknown Alcohol: Heavy Drugs: Marijuana, Other ("Acid") Lives In: Home Was a procedure done? Was a procedure done?: No CP Differential Dx Differential Diagnosis: Other (Includes but not limited to thyroid disease, encephalopathy, electrolyte abnormality, sepsis, infection, intracranial pathology, drug adverse effects, arrhythmia, kidney insufficiency, ACS, CVA, malignancy, anemia) Differential Diagnosis: Other (DDX include CVA, TGA, cerebellar ischemia/infarct, carotid stenosis, Intracranial mass/infection/bleed, encephalopathy, electrolyte abnormality, thyroid disease, hydrocephalus, hypoglycemia, drug toxicity, cardiac arrhythmia, seizure, infection in the elderly, Hyperammonemia., kidney failure., sepsis.) X-Ray, Labs, Meds, VS Vital Signs Date Time Temp Pulse Resp B/P (MAP) Pulse Ox O2 Delivery O2 Flow Rate FiO2 11/28/24 20:00 133 11/28/24 19:12 140 14 93 Nasal Cannula* 2 28 11/28/24 18:37 138 11/28/24 17:55 97.5 146 26 131/83 (99) 93 97.5 11/28/24 17:41 101.4 156 22 62/50 (54) 98 101.4 11/28/24 17:28 158 Lab Test 11/28/24 20:45 11/28/24 20:00 11/28/24 19:48 Range/Units Sodium Level 160 H 161 *H 136-145 mmol/L Potassium Level 3.7 3.6 3.5-5.1 mmol/L Chloride Level 121 H 119 H 98-107 mmol/L Carbon Dioxide Level 22 27 20-31 mmol/L Anion Gap 17 H 15 5-15 Blood Urea Nitrogen 45 H 48 H 9-23 mg/dL Creatinine 2.58 H 2.87 H 0.700-1.30 mg/dL Glomerular Filtration Rate Calc 33 29 >90 mL/min BUN/Creatinine Ratio 17.4 16.7 10.0-20.0 Serum Glucose 128 H 132 H 74-106 mg/dL Calcium Level 9.2 8.5 L 8.7-10.4 mg/dL Total Bilirubin 1.5 H 1.5 H 0.2-1.0 mg/dL Aspartate Amino Transferase (AST) 124 H 118 H 13-40 U/L Alanine Aminotransferase (ALT) 172 H 164 H 7-40 U/L Alkaline Phosphatase 83 80 46-116 U/L Troponin I High Sensitivity 73 *H 75 *H </=54 ng/L C-Reactive Protein High Sensitivity 0.10 <1.0 mg/dL Total Protein 7.0 6.9 5.7-8.2 g/dL Albumin 4.5 4.5 3.2-4.8 g/dL Urine Color Yellow Yellow Urine Clarity Turbid H Clear Urine pH 6.0 5.0-9.0 Urine Specific [place] 1.020 1.001-1.035 Urine Protein 1+ H Negative Urine Ketones Negative Negative Urine Blood 1+ H Negative /uL Urine Nitrite Negative Negative Urine Bilirubin Negative Negative Urine Urobilinogen 2 H Negative mg/dL Urine Leukocyte Esterase Negative Negative /uL Urine RBC 3 0 - 3 /hpf Urine Microscopic WBC 5 H 0-3 /HPF Urine Squamous Epithelial Cells Few <5 /hpf Urine Bacteria None seen None Seen /hpf Urine Mucus Few None Seen Urine Glucose Trace Normal mg/dL Urine Opiates Screen Neg NEGATIVE Urine Fentanyl Screen Neg NEGATIVE Urine Barbiturates Screen Neg NEGATIVE Urine Phencyclidine Screen Neg NEGATIVE Urine Amphetamines Screen Neg NEGATIVE Urine Benzodiazepines Screen Neg NEGATIVE Urine Cocaine Screen Neg NEGATIVE Urine Cannabinoids Screen Pos NEGATIVE White Blood Count 26.8 H 4.4-10.8 10^3/uL Red Blood Count 6.36 H 4.5-5.90 10^6/uL Hemoglobin 19.3 H 13.5-17.5 g/dL Hematocrit 58.2 H 41.0-53.0 % Mean Corpuscular Volume 91.5 80.0-100.0 fL Mean Corpuscular Hemoglobin 30.4 28.0-32.0 pg Mean Corpuscular Hemoglobin Concent 33.2 32.0-36.0 g/dL Red Cell Distribution Width 14.6 H 11.8-14.3 % Platelet Count 252 140-450 10^3/uL Mean Platelet Volume 9.9 6.9-10.8 fL Neutrophils (%) (Auto) 87.5 H 37.0-80.0 % Lymphocytes (%) (Auto) 6.5 L 10.0-50.0 % Monocytes (%) (Auto) 5.4 0.0-12.0 % Eosinophils (%) (Auto) 0.0 0.0-7.0 % Basophils (%) (Auto) 0.6 0.0-2.0 % Neutrophils # (Auto) 23.5 H 1.6-8.6 10 ^3/uL Lymphocytes # (Auto) 1.8 0.4-5.4 10 ^3/uL Monocytes # (Auto) 1.4 H 0-1.3 10 ^3/uL Eosinophils # (Auto) 0 0-0.8 10 ^3/uL Basophils # (Auto) 0.1 0-0.2 10 ^3/uL Nucleated Red Blood Cells 0.1 % Lactic Acid Level 2.9 *H 0.4-2.0 mmol/L Magnesium Level 3.4 H 1.6-2.6 mg/dL Creatine Kinase 49 46-171 U/L Lipase 71 H 12-53 U/L Salicylates Level < 3.0 -30 mg/dL Acetaminophen Level < 2.0 L 10.0-20.0 UG/ML Plasma/Serum Blood Alcohol < 3.0 <10 mg/dL Current Medications Medications (Trade) Dose Ordered Sig/Vikram Route Start Time Stop Time Status Last Admin Sodium Chloride 1,000 ml @ 1,000 mls/hr Q1H ONCE IV 11/28/24 17:45 11/28/24 18:44 DC 11/28/24 17:53 Sodium Chloride 1,000 ml @ 1,000 mls/hr Q1H ONCE IV 11/28/24 19:30 11/28/24 20:29 DC 11/28/24 19:30 [place] [id number] Ph: [phone] DIAGNOSTIC IMAGING Diagnostic Imaging Report : [id number] Signed PATIENT: ALDEN DUFF ACCT: [id number] UNIT: [id number] : 1990 LOC: ER ROOM / BED: / AGE / SEX: 33 / M ADM STATUS: REG ER SERVICE 8100 ORDERING PHYSICIAN: JUANA CASANVOA DO PROCEDURE(s): CXRP - CHEST PORTABLE REASON: TACHY, HYPOTENSIVE, WEAK, DRUG ABUSE ORDER NUMBER(s): [id number], ACCESSION NUMBER(s): [id number] INDICATION: TACHY, HYPOTENSIVE, WEAK, DRUG ABUSE TECHNIQUE: Frontal view of the chest. COMPARISON: XY CHEST PORTABLE on DOS: 06/17/24, XY CHEST XRAY 1 VIEW on DOS: 11/30/22, CHEST PORTABLE on DOS: 08/17/21, CHEST PORTABLE on DOS: 08/16/21, CHEST PORTABLE on DOS: 08/14/21 FINDINGS: Findings:. The heart and mediastinal contours are grossly unremarkable. There is no evidence of pleural disease. The lungs are clear. The bony structures of the chest are intact without fracture. IMPRESSION: 1. No evidence of acute disease. ATED BY: VANESSA MANE MD DICTATED DATE/TIME: 11/28/241817 SIGNED BY: VANESSA MANE MD SIGNED DATE/TIME: 11/28/241817 CC: Time of 1ST Reevaluation: 19:25 ( OF THIS MINUTE ALL LABS ARE STILL PENDING. VITAL SIGNS AND BLOOD PRESSURE HAVE IMPROVED.) Reevaluation 1ST: Improved Patient Education/Counseling: Diagnosis, Treatment, Prognosis Family Education/Counseling: No Family Present Departure 1 Departure Time of Disposition: 20:21 Impression: Primary Impression: Dehydration Additional Impressions: Leukocytosis Hypernatremia Acute renal failure Elevated troponin Mild fentanyl abuse Disposition: ADMITTED INPATIENT Admit to: ICU Condition: Critical Discharged With: Self Critical Care Note Critical Care Time?: Yes (1 hr-critical care time only) Heart Score Heart Score: Heart Score Response (Comments) Value History Slightly Suspicious 0 EKG Normal 0 Age <45 0 Risk Factors No known risk factors 0 Troponin 1-2 x's Normal limit 1 Total 1 I personally scribed for JUANA CASANOVA DO ([email or web address]) on 11/28/24 at 17:55. Electronically submitted by Prince Strange ([email or web address]). I personally scribed for JUANA CASANOVA DO ([email or web address]) on 11/28/24 at 18:41. Electronically submitted by Prince Strange ([email or web address]). JUANA CASANOVA DO November 28, 2024 17:55
--- NOTE | 2024-11-28 18:20 | DVH ---
INDICATION: TACHY, HYPOTENSIVE, WEAK, DRUG ABUSE TECHNIQUE: Frontal view of the chest. COMPARISON: XY CHEST PORTABLE on DOS: 06/17/24, XY CHEST XRAY 1 VIEW on DOS: 11/30/22, CHEST PORTABLE on DOS: 08/17/21, CHEST PORTABLE on DOS: 08/16/21, CHEST PORTABLE on DOS: 08/14/21 FINDINGS: Findings:. The heart and mediastinal contours are grossly unremarkable. There is no evidence of pleu ral disease. The lungs are clear. The bony structures of the chest are intact without fracture. IMPRESSION: 1. No evidence of acute disease.
--- NOTE | 2024-11-28 19:05 | ECG ---
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
[2024-11-28 19:12] VITALS: PULSE 140; RESP 14; O2SAT 93
[2024-11-28 19:40] VITALS: PULSE 140; RESP 14; O2SAT 93
[2024-11-28 20:08] LABS: Basophils # (auto) 0.1 10 ^3/uL (0-0.2); Eosinophils # (auto) 0 10 ^3/uL (0-0.8); Neutrophils % (auto) 87.5 % (37.0-80.0)
[2024-11-28 20:09] LABS: Basophils % (auto) 0.6 % (0.0-2.0); Hemoglobin 19.3 g/dL (13.5-17.5); Lymphocytes # (auto) 1.8 10 ^3/uL (0.4-5.4); Lymphocytes % (auto) 6.5 % (10.0-50.0); Mean Corpuscular Hemoglobin 30.4 pg (28.0-32.0); Mean Corpuscular Hgb Conc. 33.2 g/dL (32.0-36.0); Mean Corpuscular Volume 91.5 fL (80.0-100.0); Monocytes # (auto) 1.4 10 ^3/uL (0-1.3); Monocytes % (auto) 5.4 % (0.0-12.0); Neutrophils # (auto) 23.5 10 ^3/uL (1.6-8.6); Nucleated Red Blood Cells % 0.1 %; Platelet Count (auto) 252 10^3/uL (140-450); Red Blood Cells 6.36 10^6/uL (4.5-5.90); Red Cell Distribution Width 14.6 % (11.8-14.3); White Blood Cell 26.8 10^3/uL (4.4-10.8)
[2024-11-28 20:11] LABS: Urine Bacteria None Seen /hpf (None Seen)
[2024-11-28 20:12] LABS: Hematocrit 58.2 % (41.0-53.0)
[2024-11-28 20:17] LABS: Albumin 4.5 g/dL (3.2-4.8); Alkaline Phosphatase 80 U/L (46-116); Anion Gap 15 (5-15); BUN/Creatinine Ratio 16.7 (10.0-20.0); Carbon Dioxide 27 mmol/L (20-31); Creatine Kinase IFCC 49 U/L (46-171); Potassium 3.6 mmol/L (3.5-5.1); Total Protein 6.9 g/dL (5.7-8.2)
[2024-11-28 20:18] LABS: Alanine Aminotransferase 164 U/L (7-40); Aspartate Aminotransferase 118 U/L (13-40); Bilirubin, Total 1.5 mg/dL (0.2-1.0); Blood Urea Nitrogen 48 mg/dL (9-23); Calcium 8.5 mg/dL (8.7-10.4); Chloride 119 mmol/L (98-107); Glucose 132 mg/dL (74-106); Lipase 71 U/L (12-53); Magnesium 3.4 mg/dL (1.6-2.6)
[2024-11-28 20:20] LABS: Lactic Acid w/Reflex 2.9 mmol/L (0.4-2.0); Sodium 161 mmol/L (136-145)
[2024-11-28 20:23] LABS: Acetaminophen < 2.0 UG/ML (10.0-20.0); Salicylate < 3.0 mg/dL (-30)
[2024-11-28 20:29] LABS: Urine Blood 1+ /uL (Negative); Urine Clarity Turbid (Clear); Urine Color Yellow (Yellow); Urine Mucus FEW (None Seen); Urine Protein, UAD 1+ (Negative); Urine Squamous Epithelial Cell FEW /hpf (<5); Urine Urobilinogen 2 mg/dL (Negative); Urine WBC 5 /HPF (0-3)
[2024-11-28] MEDS: levoFLOXacin 500MG 100 ML IV ONE (20:30)
[2024-11-28 20:38] LABS: Amphetamine Screen, Urine Neg (NEGATIVE); Barbiturate Scree,Urine Neg (NEGATIVE); Benzodiazephine Screen, Urine Neg (NEGATIVE)
[2024-11-28 20:39] LABS: Cocaine Screen, Urine Neg (NEGATIVE)
[2024-11-28 20:43] LABS: Cannabinoid Screen, Urine Pos (NEGATIVE); Opiate Scree,Urine Neg (NEGATIVE); Phencyclidine Screen, Urine Neg (NEGATIVE)
[2024-11-28] MEDS ORDERED: ONDANSETRON HCL 4 MG/2 ML VIAL IV PRN (21:00)
[2024-11-28] MEDS ORDERED: DOCUSATE SOD 100 MG CAP PO PRN (21:00)
--- NOTE | 2024-11-28 21:05 | DVHHP2 ---
Admitting Diagnosis: Generalized weakness History of Present Illness 33-year-old male brought in by ambulance from home because mom called 911. Patient has been weak and laying in bed for the last two days after he took a hit of acid. Patient denies any use of alcohol. Patient complains of generalized body aches. Per EMS, initial heart rate was in the 160s and blood pressure systolic was in the 60s. IO was started on the left shoulder by EMS and fluid resuscitation started in route. Upon arrival patient appears to be frail weak and very dehydrated. Patient is covered in feces. Patient states he was too weak to run to make it to the bathroom on time. Patient states however he has been ambulating from time to time at home. Past Medical History: Anxiety, kidney stones, ADHD, bipolar disorder Past Surgical History: Tonsillectomy, right hand surgery Social History: Occasional/heavy alcohol use, Substance use-acid REVIEW OF SYSTEMS: CONSTITUTIONAL: Denies acute: fever, diaphoresis, chills, HEAD: Denies acute: headache, photophobia Eyes: Denies acute: Double vision, vision loss, eye pain, eye discharge. EARS: Denies acute: tinnitus, hearing loss, ear discharge, ear pain, THROAT: Denies acute: sore throat, swelling, difficulty swallowing , pain with swallowing, change in voice. NECK: Denies acute: neck pain, neck swelling, stiff neck. HEART: Denies acute : chest pain, palpitations, LUNGS: Denies acute: SOB, wheezing, cough, hemoptysis ABDOMEN: Denies acute: abdominal pain, Nausea, Vomiting, diarrhea, melena , hematemesis, hematochezia SKIN: Denies acute: rash, redness, lesions, itchiness. EXTREMITIES: Denies acute: calf pain, numbness, tingling, weakness, denies pain in extremity. Denies acute: Low back pain. Neuro: Denies acute: focal neurological deficit, motor or sensory focal neurological deficit, tremors, seizure like activity, confusion, dizziness, change in mental status, loss of bowel or bladder function, cauda equina like symptoms. : Denies acute: dysuria, hematuria, flank pain, increase in urinary frequency. PSYCH: Denies acute: hallucination, suicidal ideation, homicidal ideation. PAST MEDICAL HISTORY: Anxiety, Kidney Stones Past Medical History (Other): ADHD, bipolar disorder Surgical History: Tonsillectomy Surgical History (Other): Right hand surgery Family History Family History: Reviewed,noncontributory to illness, Unknown Social History Smoker: Unknown Alcohol: Heavy Drugs: Marijuana, Other ("Acid") Lives In: Home Patient Family History: Family history: Blood disorder G8 FATHER, Onset:30's - 40 Family history: Hypercholesterolemia (situation) G8 MOTHER, Onset:25's - 30 G8 FATHER, Onset:40's - 50 Family history: Osteoporosis G8 MOTHER Renal stone G8 FATHER, Onset:30s - 40 Allergies: Coded Allergies: Codeine (Verified Allergy, Unknown, 12/15/15) Penicillins (Verified Allergy, Unknown, 12/15/15) Home Meds Active Scripts Ondansetron Odt 4MG Tab (ZOFRAN PO) 4 Mg Tb, 4 MG PO TID PRN, #30 TAB prn nausea/vomiting ODT TAB-DISSOLVE IN MOUTH, THEN SWALLOW Prov:ALEX WILLIAMSON MD 07/16/24 Dicyclomine Hcl (BENTYL CAPSULE) 10 Mg Cp, 2 CAP PO Q6HP PRN, #30 CAP 11 Refills prn abdominal pain Prov:ALEX WILLIAMSON MD 07/16/24 Metronidazole (Flagyl) 500 Mg Tab, 1 TAB PO TID for 7 Days, #21 TAB Prov:ALEX WILLIAMSON MD 07/16/24 Ciprofloxacin Hcl (Cipro) 500 Mg Tab, 1 TAB PO BID for 7 Days, #14 TAB Prov:ALEX WILLIAMSON MD 07/16/24 Sucralfate (CARAFATE) 1 Gm Tab, 1 GM OR QIDACHS for 30 Days, #120 TAB Prov:NICO TODD MD 12/03/22 Pantoprazole Sodium Sesquihydr (Protonix) 40 Mg Tab, 40 MG PO BIDAC for 30 Days, #60 TAB Prov:NICO TODD MD 12/03/22 Metronidazole (Flagyl) 500 Mg Tab, 500 MG PO TID for 5 Days, #15 TAB Prov:NICO TODD MD 12/03/22 Cephalexin ( Keflex 500) 500 Mg Cap, 1 CAP PO QID for 5 Days, #20 CAP Prov:NICO TODD MD 12/03/22 Reported Medications Quetiapine Fumerate (QUETIAPINE FUMARATE) 200 Mg Tab, 200 MG PO HS, TAB 08/18/21 Cholecalciferol (VITAMIN D3) 2,000 Unit Tab, 125 TAB PO DAILY, #30 TAB 5 Refills 08/15/21 Fluoxetine HCl (Fluoxetine) 60 Mg Tab, 40 MG PO DAILY, TAB 08/15/21 Pantoprazole Sodium Sesquihydr (Protonix) 40 Mg Tab, 40 MG PO DAILY, #30 TAB 05/06/15 Oxcarbazepine (TRILEPTAL TABLET) 300 Mg Tb, 1 TAB PO BID, #60 TAB 05/06/15 Current Medications Current Medications Medications (Trade) Dose Ordered Sig/Vikram Route PRN Reason Start Time Stop Time Status Last Admin Levofloxacin/ Dextrose 100 ml @ 100 mls/hr DAILY IV 11/29/24 10:00 UNV Oxcarbazepine (Trileptal Tablet) 300 mg BID PO 11/28/24 22:00 UNV Pantoprazole Sodium (Protonix Tablet) 40 mg BIDAC PO 11/29/24 07:00 UNV Sucralfate (Carafate Tab) 1 gm QIDACHS PO 11/28/24 22:00 UNV Patient Own Medication 125 tab DAILY PO 11/29/24 10:00 UNV Patient Own Medication 40 mg DAILY PO 11/29/24 10:00 UNV Sodium Chloride (Saline Lock Ns) 10 ml Q8HR IV 11/28/24 22:00 UNV Docusate Sodium (Colace Capsule) 100 mg BIDPRN PRN PO FOR CONSTIPATION 11/28/24 21:00 UNV Acetaminophen (Tylenol Tablet) 650 mg Q6HP PRN PO PAIN SCALE 1-3 OR TEMP>100.4 11/28/24 21:00 UNV Acetaminophen/ Hydrocodone Bitart ([place] 5/325MG Tab) 1 tab Q4HP PRN PO MODERATE PAIN (4-6 PAIN SCALE) 11/28/24 21:00 UNV Ondansetron HCl (Zofran) 4 mg Q4HP PRN IV NAUSEA / VOMITING 11/28/24 21:00 UNV Vital Signs Vital Signs Date Time Temp Pulse Resp B/P (MAP) Pulse Ox O2 Delivery O2 Flow Rate FiO2 11/28/24 20:00 133 11/28/24 19:12 14 93 Nasal Cannula* 2 28 11/28/24 17:55 97.5 131/83 (99) 97.5 Physical Exam Generally-33 years old male, well nourished well developed. Moderate distress HEENT-atraumatic, normocephalic Heart-sinus tachycardic Lungs clear to auscultate bilaterally Abdomen soft nontender nondistended Musculoskeletal-no edema cyanosis Neuro-awake, alert, follow commands, strength and sensory intact Results Labs Test 11/28/24 20:45 11/28/24 20:00 11/28/24 19:48 Range/Units Urine Color Yellow Yellow Urine Clarity Turbid H Clear Urine pH 6.0 5.0-9.0 Urine Specific [place] 1.020 1.001-1.035 Urine Protein 1+ H Negative Urine Ketones Negative Negative Urine Blood 1+ H Negative /uL Urine Nitrite Negative Negative Urine Bilirubin Negative Negative Urine Urobilinogen 2 H Negative mg/dL Urine Leukocyte Esterase Negative Negative /uL Urine RBC 3 0 - 3 /hpf Urine Microscopic WBC 5 H 0-3 /HPF Urine Squamous Epithelial Cells Few <5 /hpf Urine Bacteria None seen None Seen /hpf Urine Mucus Few None Seen Urine Glucose Trace Normal mg/dL Urine Opiates Screen Neg NEGATIVE Urine Fentanyl Screen Neg NEGATIVE Urine Barbiturates Screen Neg NEGATIVE Urine Phencyclidine Screen Neg NEGATIVE Urine Amphetamines Screen Neg NEGATIVE Urine Benzodiazepines Screen Neg NEGATIVE Urine Cocaine Screen Neg NEGATIVE Urine Cannabinoids Screen Pos NEGATIVE White Blood Count 26.8 H 4.4-10.8 10^3/uL Red Blood Count 6.36 H 4.5-5.90 10^6/uL Hemoglobin 19.3 H 13.5-17.5 g/dL Hematocrit 58.2 H 41.0-53.0 % Mean Corpuscular Volume 91.5 80.0-100.0 fL Mean Corpuscular Hemoglobin 30.4 28.0-32.0 pg Mean Corpuscular Hemoglobin Concent 33.2 32.0-36.0 g/dL Red Cell Distribution Width 14.6 H 11.8-14.3 % Platelet Count 252 140-450 10^3/uL Mean Platelet Volume 9.9 6.9-10.8 fL Neutrophils (%) (Auto) 87.5 H 37.0-80.0 % Lymphocytes (%) (Auto) 6.5 L 10.0-50.0 % Monocytes (%) (Auto) 5.4 0.0-12.0 % Eosinophils (%) (Auto) 0.0 0.0-7.0 % Basophils (%) (Auto) 0.6 0.0-2.0 % Neutrophils # (Auto) 23.5 H 1.6-8.6 10 ^3/uL Lymphocytes # (Auto) 1.8 0.4-5.4 10 ^3/uL Monocytes # (Auto) 1.4 H 0-1.3 10 ^3/uL Eosinophils # (Auto) 0 0-0.8 10 ^3/uL Basophils # (Auto) 0.1 0-0.2 10 ^3/uL Nucleated Red Blood Cells 0.1 % Lactic Acid Level 2.9 *H 0.4-2.0 mmol/L Magnesium Level 3.4 H 1.6-2.6 mg/dL Creatine Kinase 49 46-171 U/L Lipase 71 H 12-53 U/L Salicylates Level < 3.0 -30 mg/dL Acetaminophen Level < 2.0 L 10.0-20.0 UG/ML Plasma/Serum Blood Alcohol < 3.0 <10 mg/dL Primary Diagnosis Acute severe hyponatremia MARSHA Severe dehydration Drug use Cannabinoid Elevated troponin rule out ACS Sinus tachycardic Plan Patient asked less than two days ago. Patient sodium over 160 likely within 48 hours We will rapidly correct sodium to avoid cerebral edema Check CT head to assess for cerebral edema and a IH D5 fluids at 100 cc an hours Check BNP q.4 hours until sodium level is within normal range Nephrology consult for severe hyponatremia and MARSHA Ultrasound renal to assess for hydronephrosis Xarelto obstructions Check urine sodium, urine creatinine Levaquin for possible infection. Patient has a penicillin allergy Check CRP, pro count Neuro check per floor protocol Elevated troponin rule out ACS Check echo of the heart Check EKG for arrhythmia Full code Heparin for DVT prophylaxis Regular diet PPI for GI prophylaxis Plan discussed with: Patient Problems List: (1) Leukocytosis Status: Acute (2) Elevated troponin Status: Acute (3) Hypernatremia Status: Acute (4) Acute renal failure Status: Acute Date of Service: November 28, 2024 Billing Provider: PHILIPPE CERDA MD Common Visit Codes: 45705-[id number] CARE 30-74 MIN, 94218-EVXRUNPE CARE-EACH +30MIN PHILIPPE CERDA MD November 28, 2024 21:05
[2024-11-28 21:30] LABS: Albumin 4.5 g/dL (3.2-4.8); Alkaline Phosphatase 83 U/L (46-116); Anion Gap 17 (5-15); BUN/Creatinine Ratio 17.4 (10.0-20.0); Bilirubin, Total 1.5 mg/dL (0.2-1.0); Calcium 9.2 mg/dL (8.7-10.4); Carbon Dioxide 22 mmol/L (20-31); Potassium 3.7 mmol/L (3.5-5.1)
[2024-11-28 21:31] LABS: Alanine Aminotransferase 172 U/L (7-40); Aspartate Aminotransferase 124 U/L (13-40); Blood Urea Nitrogen 45 mg/dL (9-23); Chloride 121 mmol/L (98-107); Glucose 128 mg/dL (74-106); Sodium 160 mmol/L (136-145)
[2024-11-28] MEDS: SUCRALFATE 1 GM TAB PO SCH (22:00)
[2024-11-28] MEDS: SODIUM CHLOR 0.9% PF (SALINE LOCK) 10ML VIAL/SYR IV SCH (22:00)
[2024-11-28] MEDS: OXcarbazepine 300 MG TAB PO SCH (22:00)
--- NOTE | 2024-11-28 22:46 | DVH ---
EXAM: CT HEAD WITHOUT CONTRAST INDICATION: ALOC EXAM DATE: 11/28/2024 10:18 PM COMPARISON: CT HEAD WITHOUT CONTRAST on DOS: 04/29/24, HEAD WITHOUT CONTRAST on DOS: 08/18/21, HEAD WI THOUT CONTRAST on DOS: 08/14/21 TECHNIQUE: CT of the head without intravenous contrast. Radiation Dose Information: CTDI volume is 68.03 mGy. Dose-length product is 1340.28 mGy*cm FINDINGS: There is no evidence of acute intracranial hemorrhage, extra-axial collection, mass effect, midline s hift, herniation or hydrocephalus. The ventricles, sulci and cisterns are age appropriate. The fox-w catie differentiation is intact. The visualized paranasal sinuses and mastoid air cells are clear. The surrounding soft tissues and osseous structures are unremarkable. IMPRESSION: 1. No evidence of acute intracranial hemorrhage, mass effect or hydrocephalus. END IMPRESSION:
[2024-11-28] MEDS: D5W 5% 1,000 ML IV ONE (23:15)
--- NOTE | 2024-11-28 23:23 | DVH ---
INDICATION: MARSHA TECHNIQUE: Multiple real-time sonographic images of the kidneys and bladder were obtained. COMPARISON: None FINDINGS: Right kidney measures 10.1 cm in length and the left 9.8 cm. Both kidneys are normal in size, contour , echogenicity and cortical thickness. No hydronephrosis. Urinary bladder is nondistended with a Fole y catheter present. IMPRESSION: No renal abnormality noted.
[2024-11-28 23:39] LABS: Basophils # (auto) 0.1 10 ^3/uL (0-0.2); Basophils % (auto) 0.4 % (0.0-2.0); Eosinophils # (auto) 0 10 ^3/uL (0-0.8); Hematocrit 51.7 % (41.0-53.0); Lymphocytes # (auto) 2.6 10 ^3/uL (0.4-5.4); Lymphocytes % (auto) 11.8 % (10.0-50.0); Mean Corpuscular Hemoglobin 30.2 pg (28.0-32.0); Mean Corpuscular Hgb Conc. 32.8 g/dL (32.0-36.0); Mean Corpuscular Volume 92.1 fL (80.0-100.0); Monocytes # (auto) 1.3 10 ^3/uL (0-1.3); Neutrophils # (auto) 18.1 10 ^3/uL (1.6-8.6); Neutrophils % (auto) 81.8 % (37.0-80.0); Nucleated Red Blood Cells % 0.1 %; Platelet Count (auto) 204 10^3/uL (140-450); Red Blood Cells 5.61 10^6/uL (4.5-5.90); Red Cell Distribution Width 14.8 % (11.8-14.3); White Blood Cell 22.1 10^3/uL (4.4-10.8)
[2024-11-29] MEDS: MORPHINE SULFATE INJ 2 MG/ml SYRG IV ONE (00:06)
[2024-11-29 00:07] LABS: Albumin 3.8 g/dL (3.2-4.8); Alkaline Phosphatase 66 U/L (46-116); Anion Gap 14 (5-15); BUN/Creatinine Ratio 19.1 (10.0-20.0); Bilirubin, Total 1.1 mg/dL (0.2-1.0); Carbon Dioxide 25 mmol/L (20-31); Potassium 3.5 mmol/L (3.5-5.1); Total Protein 5.7 g/dL (5.7-8.2)
[2024-11-29 00:17] LABS: Alanine Aminotransferase 147 U/L (7-40); Aspartate Aminotransferase 124 U/L (13-40); Blood Urea Nitrogen 44 mg/dL (9-23); Calcium 7.4 mg/dL (8.7-10.4); Chloride 124 mmol/L (98-107); Glucose 115 mg/dL (74-106)
[2024-11-29 00:18] LABS: Sodium 163 mmol/L (136-145)
[2024-11-29] MEDS: METOPROLOL TARTRATE 1MG/1ML-5ML VIAL IV ONE (01:49)
[2024-11-29 05:54] LABS: Potassium 3.5 mmol/L (3.5-5.1)
[2024-11-29 05:55] LABS: Anion Gap 14 (5-15); Carbon Dioxide 24 mmol/L (20-31)
[2024-11-29 05:56] LABS: Calcium 8.8 mg/dL (8.7-10.4); Chloride 122 mmol/L (98-107); Sodium 160 mmol/L (136-145)
[2024-11-29 06:01] LABS: BUN/Creatinine Ratio 19.2 (10.0-20.0); Blood Urea Nitrogen 42 mg/dL (9-23); Glucose 172 mg/dL (74-106)
[2024-11-29] MEDS: PANTOPRAZOLE 40 MG TAB PO SCH (07:00)
[2024-11-29 08:00] VITALS: PULSE 145; RESP 24; O2SAT 96
[2024-11-29] MEDS: ACETAMINOPHEN 325 MG TAB PO PRN (08:27)
[2024-11-29 08:32] LABS: Creatinine, Urine 181.34 mg/dL (30.0-125.0)
[2024-11-29] MEDS: METOPROLOL TARTRATE 1MG/1ML-5ML VIAL IV PRN (08:59)
[2024-11-29] MEDS: levoFLOXacin 500MG 100 ML IV SCH (10:16)
[2024-11-29] MEDS: CHOLECALCIFEROL (VITD3) 1,000UNIT=25mCg TAB PO SCH (10:16)
[2024-11-29] MEDS: FLUoxetine HCL 20 MG CAP PO SCH (10:17)
--- NOTE | 2024-11-29 10:20 | DVHINCON2 ---
Date Seen: November 29, 2024 Referring Physician MD Yariel Reason for Consultation Elevated troponin rule out ACS History of Present Illness This is a 33-year-old man who presented to the emergency room via EMS with a chief complaint of an altered level of consciousness for two days. At time of a ssessment, the patient was found alert but ALOC. Information obtained from records which indicate the patient developed generalized weakness associated with an altered level of consciousness myalgia after intake of "acid." EN route to the hospital he underwent a 12 lead electrocardiogram revealing a sinus tachycardia rhythm, underwent placement of an IO to the left humerus, found with a blood glucose level of 231 mg/dL, and medicated with lidocaine 40 mg. He has undergone multiple 12 lead electrocardiograms x3 revealing a sinus tachycardia rhythm up to 158 bpm. Latest troponin level was 87 ng/L. Significant medical history includes bipolar disorder, ADHD, anxiety, depression, nephrolithiasis, history of alcohol abuse with pancreatitis, and obesity. Past Medical History Past medical history reviewed. No other significant than mentioned above. Past Surgical History Tonsillectomy Right middle finger repair Her tubes Family History: Family history: Blood disorder G8 FATHER, Onset:30's - 40 Family history: Hypercholesterolemia (situation) G8 MOTHER, Onset:25's - 30 G8 FATHER, Onset:40's - 50 Family history: Osteoporosis G8 MOTHER Renal stone G8 FATHER, Onset:30's - 40 Family History Unknown family history. Social History UDS positive for cannabinoids. Allergies: Coded Allergies: Codeine (Verified Allergy, Unknown, 12/15/15) Penicillins (Verified Allergy, Unknown, 12/15/15) Home Meds Active Scripts Ondansetron Odt 4MG Tab (ZOFRAN PO) 4 Mg Tb, 4 MG PO TID PRN, #30 TAB prn nausea/vomiting ODT TAB-DISSOLVE IN MOUTH, THEN SWALLOW Prov:ALEX WILLIAMSON MD 07/16/24 Dicyclomine Hcl (BENTYL CAPSULE) 10 Mg Cp, 2 CAP PO Q6HP PRN, #30 CAP 11 Refills prn abdominal pain Prov:ALEX WILLIAMSON MD 07/16/24 Metronidazole (Flagyl) 500 Mg Tab, 1 TAB PO TID for 7 Days, #21 TAB Prov:ALEX WILLIAMSON MD 07/16/24 Ciprofloxacin Hcl (Cipro) 500 Mg Tab, 1 TAB PO BID for 7 Days, #14 TAB Prov:ALEX WILLIAMSON MD 07/16/24 Sucralfate (CARAFATE) 1 Gm Tab, 1 GM OR QIDACHS for 30 Days, #120 TAB Prov:NICO TODD MD 12/03/22 Pantoprazole Sodium Sesquihydr (Protonix) 40 Mg Tab, 40 MG PO BIDAC for 30 Days, #60 TAB Prov:NICO TODD MD 12/03/22 Metronidazole (Flagyl) 500 Mg Tab, 500 MG PO TID for 5 Days, #15 TAB Prov:NICO TODD MD 12/03/22 Cephalexin ( Keflex 500) 500 Mg Cap, 1 CAP PO QID for 5 Days, #20 CAP Prov:NICO TODD MD 12/03/22 Reported Medications Quetiapine Fumerate (QUETIAPINE FUMARATE) 200 Mg Tab, 200 MG PO HS, TAB 08/18/21 Cholecalciferol (VITAMIN D3) 2,000 Unit Tab, 125 TAB PO DAILY, #30 TAB 5 Refills 08/15/21 Fluoxetine HCl (Fluoxetine) 60 Mg Tab, 40 MG PO DAILY, TAB 08/15/21 Pantoprazole Sodium Sesquihydr (Protonix) 40 Mg Tab, 40 MG PO DAILY, #30 TAB 05/06/15 Oxcarbazepine (TRILEPTAL TABLET) 300 Mg Tb, 1 TAB PO BID, #60 TAB 05/06/15 Home Meds Home medications reviewed. Current Medications Current Medications Medications (Trade) Dose Ordered Sig/Vikram Route PRN Reason Start Time Stop Time Status Last Admin Levofloxacin/ Dextrose 100 ml @ 100 mls/hr DAILY IV 11/29/24 10:00 Oxcarbazepine (Trileptal Tablet) 300 mg BID PO 11/28/24 22:00 Pantoprazole Sodium (Protonix Tablet) 40 mg BIDAC PO 11/29/24 07:00 Sucralfate (Carafate Tab) 1 gm QIDACHS PO 11/28/24 22:00 Cholecalciferol (Vitamin D3 Tablet) 2,000 unit DAILY PO 11/29/24 10:00 Fluoxetine HCl (PROzac CAPSULE) 40 mg DAILY PO 11/29/24 10:00 Sodium Chloride (Saline Lock Ns) 10 ml Q8HR IV 11/28/24 22:00 11/29/24 06:01 Docusate Sodium (Colace Capsule) 100 mg BIDPRN PRN PO FOR CONSTIPATION 11/28/24 21:00 Acetaminophen (Tylenol Tablet) 650 mg Q6HP PRN PO PAIN SCALE 1-3 OR TEMP>100.4 11/28/24 21:00 11/29/24 08:27 Acetaminophen/ Hydrocodone Bitart ([place] 5/325MG Tab) 1 tab Q4HP PRN PO MODERATE PAIN (4-6 PAIN SCALE) 11/28/24 21:00 Ondansetron HCl (Zofran) 4 mg Q4HP PRN IV NAUSEA / VOMITING 11/28/24 21:00 Metoprolol Tartrate (Lopressor) 2.5 mg Q6HPRN PRN IV HEART RATE GREATER THAN 140 11/29/24 01:30 11/29/24 08:59 Review of Systems Constitutional: Generalized weakness Ears, Nose, & Throat: No symptom reported Eyes: No symptom reported Neurological: ALOC Pulmonary/Respiratory: No symptom reported Cardiovascular: No symptom reported Gastrointestinal: No symptom reported Genitourinary: No symptom reported Musculoskeletal: Myalgia Skin: No symptom reported Psychiatric: No symptom reported Endocrine: No symptom reported Hemotologic/Lymphatic: No symptom reported Vital Signs Vital Signs Date Time Temp Pulse Resp B/P (MAP) Pulse Ox O2 Delivery O2 Flow Rate FiO2 11/29/24 08:59 145 149/75 11/29/24 08:27 101.1 11/29/24 08:00 24 96 Nasal Cannula* 4 36 Physical Exam General Appearance: Cooperative. Well developed. Obese. In no acute distress Head Exam: Normal inspection Neck Exam: Normal inspection. Non-tender. Normal alignment Pulmonary/Respiratory: Chest non-tender. Clear bilateral breath sounds. O2 via NC at 4 LPM Cardiovascular/Chest: Regular rate and rhythm. S1, S2. Sinus tachycardia at 130s bpm. No murmurs. No JVD. Peripheral Pulses: 2+ Radial (R). 2+ Radial (L). 2+ Pedal (R). 2+ Pedal (L) Abdominal Exam: Normal bowel sounds. Soft. Nontender. No hepatospenomegaly. No masses Ankle Exam: Negative ankle edema Lower extremities: Negative lower extremity edema Neuro/Mental Status: A&O x1. Alert but incoherent. ALOC Thoughts/Psych: This is a Appearance: In no acute distress Skin Exam: Normal inspection. Normal color. Warm. Dry Labs/Diagnostic Data Labs Test 11/29/24 09:55 11/29/24 08:00 11/29/24 05:30 11/28/24 23:25 Range/Units Urine Creatinine 181.34 H 30.0-125.0 mg/dL Urine Sodium 47 40-220 mmol/L Thyroid Stimulating Hormone (TSH) 3.55 0.55-4.78 uIU/mL White Blood Count 22.1 H 4.4-10.8 10^3/uL Red Blood Count 5.61 4.5-5.90 10^6/uL Hemoglobin 17.0 13.5-17.5 g/dL Hematocrit 51.7 # 41.0-53.0 % Mean Corpuscular Volume 92.1 80.0-100.0 fL Mean Corpuscular Hemoglobin 30.2 28.0-32.0 pg Mean Corpuscular Hemoglobin Concent 32.8 32.0-36.0 g/dL Red Cell Distribution Width 14.8 H 11.8-14.3 % Platelet Count 204 140-450 10^3/uL Mean Platelet Volume 9.9 6.9-10.8 fL Neutrophils (%) (Auto) 81.8 H 37.0-80.0 % Lymphocytes (%) (Auto) 11.8 10.0-50.0 % Monocytes (%) (Auto) 6.0 0.0-12.0 % Eosinophils (%) (Auto) 0.0 0.0-7.0 % Basophils (%) (Auto) 0.4 0.0-2.0 % Neutrophils # (Auto) 18.1 H 1.6-8.6 10 ^3/uL Lymphocytes # (Auto) 2.6 0.4-5.4 10 ^3/uL Monocytes # (Auto) 1.3 0-1.3 10 ^3/uL Eosinophils # (Auto) 0 0-0.8 10 ^3/uL Basophils # (Auto) 0.1 0-0.2 10 ^3/uL Nucleated Red Blood Cells 0.1 % Total Bilirubin 1.1 H 0.2-1.0 mg/dL Aspartate Amino Transferase (AST) 124 H 13-40 U/L Alanine Aminotransferase (ALT) 147 H 7-40 U/L Alkaline Phosphatase 66 46-116 U/L Total Protein 5.7 5.7-8.2 g/dL Albumin 3.8 3.2-4.8 g/dL Test 11/28/24 22:50 11/28/24 21:47 11/28/24 20:45 11/28/24 20:00 Range/Units Troponin I High Sensitivity 87 *H </=54 ng/L Lactic Acid Level 2.6 *H 0.4-2.0 mmol/L C-Reactive Protein High Sensitivity 0.10 <1.0 mg/dL Urine Color Yellow Yellow Urine Clarity Turbid H Clear Urine pH 6.0 5.0-9.0 Urine Specific [place] 1.020 1.001-1.035 Urine Protein 1+ H Negative Urine Ketones Negative Negative Urine Blood 1+ H Negative /uL Urine Nitrite Negative Negative Urine Bilirubin Negative Negative Urine Urobilinogen 2 H Negative mg/dL Urine Leukocyte Esterase Negative Negative /uL Urine RBC 3 0 - 3 /hpf Urine Microscopic WBC 5 H 0-3 /HPF Urine Squamous Epithelial Cells Few <5 /hpf Urine Bacteria None seen None Seen /hpf Urine Mucus Few None Seen Urine Glucose Trace Normal mg/dL Urine Opiates Screen Neg NEGATIVE Urine Fentanyl Screen Neg NEGATIVE Urine Barbiturates Screen Neg NEGATIVE Urine Phencyclidine Screen Neg NEGATIVE Urine Amphetamines Screen Neg NEGATIVE Urine Benzodiazepines Screen Neg NEGATIVE Urine Cocaine Screen Neg NEGATIVE Urine Cannabinoids Screen Pos NEGATIVE Test 11/28/24 19:48 Range/Units Magnesium Level 3.4 H 1.6-2.6 mg/dL Creatine Kinase 49 46-171 U/L Lipase 71 H 12-53 U/L Salicylates Level < 3.0 -30 mg/dL Acetaminophen Level < 2.0 L 10.0-20.0 UG/ML Plasma/Serum Blood Alcohol < 3.0 <10 mg/dL Assessment SIRS Hypovolemic shock Hypernatremia Acute kidney injury Possible illicit substance overdose NSTEMI Type secondary to above Obesity Plan/Recommendation (Dr. Perdomo) The patient presents as a NSTEMI Type II secondary to SIRS and hypovolemic shock. Heart Score in 2 points placing the patient as a low risk for major cardiac events. We will continue further cardiac evaluation with a transthoracic echocardiogram to rule out structural heart disease. Sinus tachycardia is treated by managing underlined causes such as hypernatremia and MARSHA. TSH level in WNL. In the setting of an unremarkable echocardiogram, there is no further cardiac work-up indicated at this time. Thank you for allowing us to participate in this patient's care. Please call if you have any questions or concerns. This medical document was created using an electronic medical record system with voice recognition software and computerized dictation system. Although this document has been carefully reviewed, there might still be some phonetic and typographical errors. Occasional wrong-word or ``sound-alike substitutions may have occurred due to the inherent limitations of voice recognition software. These areas are purely typographical due to imperfections of the software programs and do not reflect any compromise in the patient's medical care. Please read the chart carefully and recognize, using context, where these substitutions have occurred. Plan discussed with: Patient, Other [place]HA Physical activity limitations: NA Date of Service: November 29, 2024 Billing Provider: LEONORA SCHROEDER Cardiology Common Codes: [id number] INP/OBS CARE (High) LEONORA SCHROEDER November 29, 2024 10:20
[2024-11-29 10:32] LABS: Potassium 4.3 mmol/L (3.5-5.1)
[2024-11-29 10:33] LABS: Anion Gap 13 (5-15)
[2024-11-29 10:38] LABS: BUN/Creatinine Ratio 16.8 (10.0-20.0)
[2024-11-29 11:04] LABS: Blood Urea Nitrogen 32 mg/dL (9-23); Calcium 8.2 mg/dL (8.7-10.4); Carbon Dioxide 20 mmol/L (20-31); Chloride 123 mmol/L (98-107); Glucose 145 mg/dL (74-106); Sodium 156 mmol/L (136-145)
--- NOTE | 2024-11-29 13:16 | DVHINCON2 ---
Date of service: November 29, [address] Saldivar Reason for Consultation Hypernatremia, MARSHA on CKD History of Present Illness 33 y/o male with hx of nephrolithiasis, anxiety, ADHD, bipolar, occasional heavy alcohol use, illicit drug use. Most of hx was obtained through the medical records as pt is unable to provide. Admitted for hypernatremia, MARSHA on CKD. On admission patient was found to have Na 161, BUN 48, creat 2.87, GFR 29. Reports frequent NSAID use. Nephrology consult receive for hypernatremia. Past Medical History nephrolithiasis, anxiety, ADHD, bipolar, occasional heavy alcohol use, illicit drug use. Allergies: Coded Allergies: Codeine (Verified Allergy, Unknown, 12/15/15) Penicillins (Verified Allergy, Unknown, 12/15/15) Home Meds Active Scripts Ondansetron Odt 4MG Tab (ZOFRAN PO) 4 Mg Tb, 4 MG PO TID PRN, #30 TAB prn nausea/vomiting ODT TAB-DISSOLVE IN MOUTH, THEN SWALLOW Prov:ALEX WILLIAMSON MD 07/16/24 Dicyclomine Hcl (BENTYL CAPSULE) 10 Mg Cp, 2 CAP PO Q6HP PRN, #30 CAP 11 Refills prn abdominal pain Prov:ALEX WILLIAMSON MD 07/16/24 Metronidazole (Flagyl) 500 Mg Tab, 1 TAB PO TID for 7 Days, #21 TAB Prov:ALEX WILLIAMSON MD 07/16/24 Ciprofloxacin Hcl (Cipro) 500 Mg Tab, 1 TAB PO BID for 7 Days, #14 TAB Prov:ALEX WILLIAMSON MD 07/16/24 Sucralfate (CARAFATE) 1 Gm Tab, 1 GM OR QIDACHS for 30 Days, #120 TAB Prov:NICO TODD MD 12/03/22 Pantoprazole Sodium Sesquihydr (Protonix) 40 Mg Tab, 40 MG PO BIDAC for 30 Days, #60 TAB Prov:NICO TODD MD 12/03/22 Metronidazole (Flagyl) 500 Mg Tab, 500 MG PO TID for 5 Days, #15 TAB Prov:NICO TODD MD 12/03/22 Cephalexin ( Keflex 500) 500 Mg Cap, 1 CAP PO QID for 5 Days, #20 CAP Prov:NICO TODD MD 12/03/22 Reported Medications Quetiapine Fumerate (QUETIAPINE FUMARATE) 200 Mg Tab, 200 MG PO HS, TAB 08/18/21 Cholecalciferol (VITAMIN D3) 2,000 Unit Tab, 125 TAB PO DAILY, #30 TAB 5 Refills 08/15/21 Fluoxetine HCl (Fluoxetine) 60 Mg Tab, 40 MG PO DAILY, TAB 08/15/21 Pantoprazole Sodium Sesquihydr (Protonix) 40 Mg Tab, 40 MG PO DAILY, #30 TAB 05/06/15 Oxcarbazepine (TRILEPTAL TABLET) 300 Mg Tb, 1 TAB PO BID, #60 TAB 05/06/15 Current Medications Current Medications Medications (Trade) Dose Ordered Sig/Vikram Route PRN Reason Start Time Stop Time Status Last Admin Levofloxacin/ Dextrose 100 ml @ 100 mls/hr DAILY IV 11/29/24 10:00 11/29/24 10:16 Oxcarbazepine (Trileptal Tablet) 300 mg BID PO 11/28/24 22:00 11/29/24 11:04 Pantoprazole Sodium (Protonix Tablet) 40 mg BIDAC PO 11/29/24 07:00 11/29/24 17:16 Sucralfate (Carafate Tab) 1 gm QIDACHS PO 11/28/24 22:00 11/29/24 17:16 Cholecalciferol (Vitamin D3 Tablet) 2,000 unit DAILY PO 11/29/24 10:00 11/29/24 10:16 Fluoxetine HCl (PROzac CAPSULE) 40 mg DAILY PO 11/29/24 10:00 11/29/24 10:17 Sodium Chloride (Saline Lock Ns) 10 ml Q8HR IV 11/28/24 22:00 11/29/24 14:04 Docusate Sodium (Colace Capsule) 100 mg BIDPRN PRN PO FOR CONSTIPATION 11/28/24 21:00 Acetaminophen (Tylenol Tablet) 650 mg Q6HP PRN PO PAIN SCALE 1-3 OR TEMP>100.4 11/28/24 21:00 11/29/24 08:27 Acetaminophen/ Hydrocodone Bitart ([place] 5/325MG Tab) 1 tab Q4HP PRN PO MODERATE PAIN (4-6 PAIN SCALE) 11/28/24 21:00 Ondansetron HCl (Zofran) 4 mg Q4HP PRN IV NAUSEA / VOMITING 11/28/24 21:00 Metoprolol Tartrate (Lopressor) 2.5 mg Q6HPRN PRN IV HEART RATE GREATER THAN 140 11/29/24 01:30 11/29/24 08:59 Family History: Family history: Blood disorder G8 FATHER, Onset:30's - 40 Family history: Hypercholesterolemia (situation) G8 MOTHER, Onset:25's - 30 G8 FATHER, Onset:40's - 50 Family history: Osteoporosis G8 MOTHER Renal stone G8 FATHER, Onset:30's - 40 Review of Systems 10 systems reviewed and negative except as per HPI H&P Exam Vital Signs/I&O Vital Sign Date Time Temp Pulse Resp B/P (MAP) Pulse Ox O2 Delivery O2 Flow Rate FiO2 11/29/24 16:00 139 11/29/24 16:00 98.9 25 125/80 (95) 94 98.9 11/29/24 15:20 Nasal Cannula* 2 28 Physical Exam Gen: NAD HEENT: PERRLA, Mucous membranes moist Lungs: Bilateral air entry. No rales Heart: RRR, normal S1 and S2 Abd: normoactive bowel sounds, nontender Ext: nonpitting BLE edema Neuro: A&Ox2 Labs/Diagnostic Data Labs/Diagnostic Data Laboratory Tests Test 11/29/24 17:33 11/29/24 13:23 11/29/24 09:55 11/29/24 08:00 Range/Units Sodium Level 158 H 156 H 136-145 mmol/L Potassium Level 3.7 4.3 3.5-5.1 mmol/L Chloride Level 122 H 123 H 98-107 mmol/L Carbon Dioxide Level 23 20 20-31 mmol/L Anion Gap 13 13 5-15 Blood Urea Nitrogen 42 #H 32 #H 9-23 mg/dL Creatinine 2.00 H 1.90 H 0.700-1.30 mg/dL Glomerular Filtration Rate Calc 44 47 >90 mL/min BUN/Creatinine Ratio 21.0 H 16.8 10.0-20.0 Serum Glucose 137 H 145 H 74-106 mg/dL Calcium Level 9.3 8.2 L 8.7-10.4 mg/dL Urine Creatinine 181.34 H 30.0-125.0 mg/dL Urine Sodium 47 40-220 mmol/L Test 11/29/24 05:30 11/28/24 23:25 11/28/24 22:50 11/28/24 21:47 Range/Units Sodium Level 160 H 163 *H 136-145 mmol/L Potassium Level 3.5 3.5 3.5-5.1 mmol/L Chloride Level 122 H 124 H 98-107 mmol/L Carbon Dioxide Level 24 25 20-31 mmol/L Anion Gap 14 14 5-15 Blood Urea Nitrogen 42 H 44 H 9-23 mg/dL Creatinine 2.19 H 2.30 H 0.700-1.30 mg/dL Glomerular Filtration Rate Calc 40 38 >90 mL/min BUN/Creatinine Ratio 19.2 19.1 10.0-20.0 Serum Glucose 172 H 115 H 74-106 mg/dL Calcium Level 8.8 7.4 L 8.7-10.4 mg/dL Thyroid Stimulating Hormone (TSH) 3.55 0.55-4.78 uIU/mL White Blood Count 22.1 H 4.4-10.8 10^3/uL Red Blood Count 5.61 4.5-5.90 10^6/uL Hemoglobin 17.0 13.5-17.5 g/dL Hematocrit 51.7 # 41.0-53.0 % Mean Corpuscular Volume 92.1 80.0-100.0 fL Mean Corpuscular Hemoglobin 30.2 28.0-32.0 pg Mean Corpuscular Hemoglobin Concent 32.8 32.0-36.0 g/dL Red Cell Distribution Width 14.8 H 11.8-14.3 % Platelet Count 204 140-450 10^3/uL Mean Platelet Volume 9.9 6.9-10.8 fL Neutrophils (%) (Auto) 81.8 H 37.0-80.0 % Lymphocytes (%) (Auto) 11.8 10.0-50.0 % Monocytes (%) (Auto) 6.0 0.0-12.0 % Eosinophils (%) (Auto) 0.0 0.0-7.0 % Basophils (%) (Auto) 0.4 0.0-2.0 % Neutrophils # (Auto) 18.1 H 1.6-8.6 10 ^3/uL Lymphocytes # (Auto) 2.6 0.4-5.4 10 ^3/uL Monocytes # (Auto) 1.3 0-1.3 10 ^3/uL Eosinophils # (Auto) 0 0-0.8 10 ^3/uL Basophils # (Auto) 0.1 0-0.2 10 ^3/uL Nucleated Red Blood Cells 0.1 % Total Bilirubin 1.1 H 0.2-1.0 mg/dL Aspartate Amino Transferase (AST) 124 H 13-40 U/L Alanine Aminotransferase (ALT) 147 H 7-40 U/L Alkaline Phosphatase 66 46-116 U/L Total Protein 5.7 5.7-8.2 g/dL Albumin 3.8 3.2-4.8 g/dL Troponin I High Sensitivity 87 *H </=54 ng/L Lactic Acid Level 2.6 *H 0.4-2.0 mmol/L Test 11/28/24 20:45 11/28/24 20:00 11/28/24 19:48 Range/Units Sodium Level 160 H 161 *H 136-145 mmol/L Potassium Level 3.7 3.6 3.5-5.1 mmol/L Chloride Level 121 H 119 H 98-107 mmol/L Carbon Dioxide Level 22 27 20-31 mmol/L Anion Gap 17 H 15 5-15 Blood Urea Nitrogen 45 H 48 H 9-23 mg/dL Creatinine 2.58 H 2.87 H 0.700-1.30 mg/dL Glomerular Filtration Rate Calc 33 29 >90 mL/min BUN/Creatinine Ratio 17.4 16.7 10.0-20.0 Serum Glucose 128 H 132 H 74-106 mg/dL Calcium Level 9.2 8.5 L 8.7-10.4 mg/dL Total Bilirubin 1.5 H 1.5 H 0.2-1.0 mg/dL Aspartate Amino Transferase (AST) 124 H 118 H 13-40 U/L Alanine Aminotransferase (ALT) 172 H 164 H 7-40 U/L Alkaline Phosphatase 83 80 46-116 U/L Troponin I High Sensitivity 73 *H 75 *H </=54 ng/L C-Reactive Protein High Sensitivity 0.10 <1.0 mg/dL Total Protein 7.0 6.9 5.7-8.2 g/dL Albumin 4.5 4.5 3.2-4.8 g/dL Urine Color Yellow Yellow Urine Clarity Turbid H Clear Urine pH 6.0 5.0-9.0 Urine Specific [place] 1.020 1.001-1.035 Urine Protein 1+ H Negative Urine Ketones Negative Negative Urine Blood 1+ H Negative /uL Urine Nitrite Negative Negative Urine Bilirubin Negative Negative Urine Urobilinogen 2 H Negative mg/dL Urine Leukocyte Esterase Negative Negative /uL Urine RBC 3 0 - 3 /hpf Urine Microscopic WBC 5 H 0-3 /HPF Urine Squamous Epithelial Cells Few <5 /hpf Urine Bacteria None seen None Seen /hpf Urine Mucus Few None Seen Urine Glucose Trace Normal mg/dL Urine Opiates Screen Neg NEGATIVE Urine Fentanyl Screen Neg NEGATIVE Urine Barbiturates Screen Neg NEGATIVE Urine Phencyclidine Screen Neg NEGATIVE Urine Amphetamines Screen Neg NEGATIVE Urine Benzodiazepines Screen Neg NEGATIVE Urine Cocaine Screen Neg NEGATIVE Urine Cannabinoids Screen Pos NEGATIVE White Blood Count 26.8 H 4.4-10.8 10^3/uL Red Blood Count 6.36 H 4.5-5.90 10^6/uL Hemoglobin 19.3 H 13.5-17.5 g/dL Hematocrit 58.2 H 41.0-53.0 % Mean Corpuscular Volume 91.5 80.0-100.0 fL Mean Corpuscular Hemoglobin 30.4 28.0-32.0 pg Mean Corpuscular Hemoglobin Concent 33.2 32.0-36.0 g/dL Red Cell Distribution Width 14.6 H 11.8-14.3 % Platelet Count 252 140-450 10^3/uL Mean Platelet Volume 9.9 6.9-10.8 fL Neutrophils (%) (Auto) 87.5 H 37.0-80.0 % Lymphocytes (%) (Auto) 6.5 L 10.0-50.0 % Monocytes (%) (Auto) 5.4 0.0-12.0 % Eosinophils (%) (Auto) 0.0 0.0-7.0 % Basophils (%) (Auto) 0.6 0.0-2.0 % Neutrophils # (Auto) 23.5 H 1.6-8.6 10 ^3/uL Lymphocytes # (Auto) 1.8 0.4-5.4 10 ^3/uL Monocytes # (Auto) 1.4 H 0-1.3 10 ^3/uL Eosinophils # (Auto) 0 0-0.8 10 ^3/uL Basophils # (Auto) 0.1 0-0.2 10 ^3/uL Nucleated Red Blood Cells 0.1 % Lactic Acid Level 2.9 *H 0.4-2.0 mmol/L Magnesium Level 3.4 H 1.6-2.6 mg/dL Creatine Kinase 49 46-171 U/L Lipase 71 H 12-53 U/L Salicylates Level < 3.0 -30 mg/dL Acetaminophen Level < 2.0 L 10.0-20.0 UG/ML Plasma/Serum Blood Alcohol < 3.0 <10 mg/dL Plan/Recommendation IMP: 1. MARSHA hemodynamically mediated 2. Unknown baseline serum creat, GFR 3. Dehydration 4. Hx of nephrolithiasis 5. Illicit drug use 6. NSTEMI- cardiology following 11/28- Renal U/S impression: No renal abnormality REC: - Serial chemistry panels q 4hrs - Strict I &Os - 1/2 NS IVF x 1L - Will attempt reduction of serum sodium by 8-10 mEq every 24 hours. - Avoidance of ACEI, ARB, NSAIDs, and contrast studies if able during time course of MARSHA - Will continue to follow closely Case discussed with Dr. Almas Cruz Plan discussed with: Patient, Other (Dr. Cruz) DORCAS BRYSON [employer] SPECIALIST November 29, 2024 13:16
[2024-11-29 13:41] LABS: Potassium 3.7 mmol/L (3.5-5.1)
[2024-11-29 13:42] LABS: Anion Gap 13 (5-15); Calcium 9.3 mg/dL (8.7-10.4); Carbon Dioxide 23 mmol/L (20-31)
[2024-11-29 13:48] LABS: Blood Urea Nitrogen 42 mg/dL (9-23); Chloride 122 mmol/L (98-107); Glucose 137 mg/dL (74-106); Sodium 158 mmol/L (136-145)
[2024-11-29] MEDS: SOD CHL 0.45% 1,000 ML IV ONE (15:00)
--- NOTE | 2024-11-29 16:50 | DVHPN2 ---
Subjective I am assuming the care of the patient from today onwards who was under care of hospitalist team. Patient remains altered does not follow commands. Changes from previous H/P or p: No Changes Objective Vitals Vital Signs Date Time Temp Pulse Resp B/P (MAP) Pulse Ox O2 Delivery O2 Flow Rate FiO2 11/29/24 16:00 98.9 139 25 125/80 (95) 94 98.9 11/29/24 15:20 Nasal Cannula* 2 28 Exam HEENT pupils are reactive Neck is supple CV is S1-S2 regular rate and rhythm Respiratory diminished breath sound bases GI posterior bowel sound Extremity no edema [employer] does not follow commands. Medications Current Medications Medications Dose Ordered Sig/Vikram Route Start Time Stop Time Status Last Admin Dose Admin Levofloxacin/ Dextrose 100 ml @ 100 mls/hr DAILY IV 11/29/24 10:00 11/29/24 10:16 100 MLS/HR Oxcarbazepine 300 mg BID PO 11/28/24 22:00 11/29/24 11:04 300 MG Pantoprazole Sodium 40 mg BIDAC PO 11/29/24 07:00 Sucralfate 1 gm QIDACHS PO 11/28/24 22:00 11/29/24 11:40 1 GM Cholecalciferol 2,000 unit DAILY PO 11/29/24 10:00 11/29/24 10:16 2,000 UNIT Fluoxetine HCl 40 mg DAILY PO 11/29/24 10:00 11/29/24 10:17 40 MG Sodium Chloride 10 ml Q8HR IV 11/28/24 22:00 11/29/24 14:04 10 ML Docusate Sodium 100 mg BIDPRN PRN PO 11/28/24 21:00 Acetaminophen 650 mg Q6HP PRN PO 11/28/24 21:00 11/29/24 08:27 650 MG Acetaminophen/ Hydrocodone Bitart 1 tab Q4HP PRN PO 11/28/24 21:00 Ondansetron HCl 4 mg Q4HP PRN IV 11/28/24 21:00 Metoprolol Tartrate 2.5 mg Q6HPRN PRN IV 11/29/24 01:30 11/29/24 08:59 2.5 MG Laboratory Results Laboratory Tests 11/28/24 23:25 11/29/24 13:23 Chemistry Test 11/28/24 19:48 11/28/24 20:45 11/28/24 23:25 11/29/24 05:30 Albumin 4.5 g/dL (3.2-4.8) 4.5 g/dL (3.2-4.8) 3.8 g/dL (3.2-4.8) Calcium Level 8.5 mg/dL (8.7-10.4) L 9.2 mg/dL (8.7-10.4) 7.4 mg/dL (8.7-10.4) L 8.8 mg/dL (8.7-10.4) Magnesium Level 3.4 mg/dL (1.6-2.6) H Total Protein 6.9 g/dL (5.7-8.2) 7.0 g/dL (5.7-8.2) 5.7 g/dL (5.7-8.2) Test 11/29/24 09:55 11/29/24 13:23 Calcium Level 8.2 mg/dL (8.7-10.4) L 9.3 mg/dL (8.7-10.4) Lipid panel Test 11/28/24 19:48 Lipase 71 U/L (12-53) H LFT Test 11/28/24 19:48 11/28/24 20:45 11/28/24 23:25 Alanine Aminotransferase (ALT) 164 U/L (7-40) H 172 U/L (7-40) H 147 U/L (7-40) H Alkaline Phosphatase 80 U/L (46-116) 83 U/L (46-116) 66 U/L (46-116) Aspartate Amino Transferase (AST) 118 U/L (13-40) H 124 U/L (13-40) H 124 U/L (13-40) H Total Bilirubin 1.5 mg/dL (0.2-1.0) H 1.5 mg/dL (0.2-1.0) H 1.1 mg/dL (0.2-1.0) H HgA1c, TSH Test 11/29/24 05:30 Thyroid Stimulating Hormone (TSH) 3.55 uIU/mL (0.55-4.78) Urinalysis Test 11/28/24 20:00 5/24/25 08:00 Urine Color Yellow (Yellow) Urine Clarity Turbid (Clear) H Urine pH 6.0 (5.0-9.0) Urine Specific [place] 1.020 (1.001-1.035) Urine Protein 1+ (Negative) H Urine Ketones Negative (Negative) Urine Blood 1+ /uL (Negative) H Urine Nitrite Negative (Negative) Urine Bilirubin Negative (Negative) Urine Urobilinogen 2 mg/dL (Negative) H Urine Leukocyte Esterase Negative /uL (Negative) Urine RBC 3 /hpf (0 - 3) Urine Microscopic WBC 5 /HPF (0-3) H Urine Squamous Epithelial Cells Few /hpf (<5) Urine Bacteria None seen /hpf (None Seen) Urine Mucus Few (None Seen) Urine Glucose Trace mg/dL (Normal) Urine Creatinine 181.34 mg/dL (30.0-125.0) H Urine Sodium 47 mmol/L (40-220) Assessment/Plan Assessment/Plan 73-year-old male with a known history of bipolar disorder, ADHD, anxiety and depression disorder, previous history of alcohol use presented to the hospital with altered mental status for last two days found to have 1. Hypovolemic shock 2. Severe hypernatremia suspect secondary to dehydration 3. Acute kidney injury suspected secondary to vasomotor nephropathy 4. Acute metabolic encephalopathy 5. Suspected illicit substance overdose 6. NSTEMI type 2 -continue half NS follow up Nephrology recommendations monitor electrolytes Plan discussed with: Other Date of Service: November 29, 2024 Billing Provider: NICO TODD MD Common Visit Codes: [id number] INP/OBS CARE(HIGH) NICO TODD MD November 29, 2024 16:50
[2024-11-29 17:52] LABS: Anion Gap 14 (5-15); Carbon Dioxide 23 mmol/L (20-31); Potassium 4.5 mmol/L (3.5-5.1)
[2024-11-29 17:53] LABS: Calcium 9.3 mg/dL (8.7-10.4)
[2024-11-29 17:58] LABS: BUN/Creatinine Ratio 18.3 (10.0-20.0)
[2024-11-29 18:48] LABS: Blood Urea Nitrogen 36 mg/dL (9-23); Chloride 122 mmol/L (98-107); Glucose 134 mg/dL (74-106); Sodium 159 mmol/L (136-145)
[2024-11-29 20:59] LABS: Potassium 3.6 mmol/L (3.5-5.1)
[2024-11-29 21:00] LABS: Anion Gap 13 (5-15); Carbon Dioxide 22 mmol/L (20-31)
[2024-11-29 21:01] LABS: Calcium 9.1 mg/dL (8.7-10.4)
[2024-11-29 21:06] LABS: BUN/Creatinine Ratio 15.4 (10.0-20.0)
[2024-11-29 21:08] LABS: Blood Urea Nitrogen 30 mg/dL (9-23); Chloride 119 mmol/L (98-107); Glucose 153 mg/dL (74-106); Sodium 154 mmol/L (136-145)
[2024-11-30 00:43] LABS: Potassium 3.7 mmol/L (3.5-5.1)
[2024-11-30 00:44] LABS: Anion Gap 14 (5-15); Carbon Dioxide 22 mmol/L (20-31)
[2024-11-30 00:49] LABS: BUN/Creatinine Ratio 16.3 (10.0-20.0)
[2024-11-30 00:56] LABS: Blood Urea Nitrogen 30 mg/dL (9-23); Calcium 8.6 mg/dL (8.7-10.4); Chloride 118 mmol/L (98-107); Glucose 124 mg/dL (74-106); Sodium 154 mmol/L (136-145)
[2024-11-30 02:29] VITALS: PULSE 140; RESP 24; O2SAT 96
[2024-11-30 05:40] LABS: Basophils # (auto) 0.1 10 ^3/uL (0-0.2); Basophils % (auto) 0.5 % (0.0-2.0); Eosinophils # (auto) 0 10 ^3/uL (0-0.8); Eosinophils % (auto) 0.2 % (0.0-7.0); Hematocrit 50.7 % (41.0-53.0); Hemoglobin 16.4 g/dL (13.5-17.5); Lymphocytes # (auto) 2.4 10 ^3/uL (0.4-5.4); Mean Corpuscular Hemoglobin 30.2 pg (28.0-32.0); Mean Corpuscular Hgb Conc. 32.4 g/dL (32.0-36.0); Mean Corpuscular Volume 93.1 fL (80.0-100.0); Neutrophils # (auto) 16.7 10 ^3/uL (1.6-8.6); Neutrophils % (auto) 82.3 % (37.0-80.0); Platelet Count (auto) 97 10^3/uL (140-450); Red Blood Cells 5.44 10^6/uL (4.5-5.90); Red Cell Distribution Width 14.9 % (11.8-14.3); White Blood Cell 20.3 10^3/uL (4.4-10.8)
[2024-11-30 10:25] LABS: Potassium 3.7 mmol/L (3.5-5.1)
[2024-11-30 10:26] LABS: Anion Gap 16 (5-15)
[2024-11-30 10:33] LABS: Calcium 8.6 mg/dL (8.7-10.4); Carbon Dioxide 19 mmol/L (20-31); Chloride 121 mmol/L (98-107); Sodium 156 mmol/L (136-145)
[2024-11-30 10:34] LABS: Blood Urea Nitrogen 28 mg/dL (9-23); Glucose 127 mg/dL (74-106)
[2024-11-30 10:42] LABS: BUN/Creatinine Ratio 15.1 (10.0-20.0)
[2024-11-30] MEDS: SOD CHL 0.45% 1,000 ML IV ONE (11:06)
[2024-11-30 12:28] LABS: Anion Gap 12 (5-15); Calcium 9.4 mg/dL (8.7-10.4); Carbon Dioxide 23 mmol/L (20-31)
[2024-11-30 12:33] LABS: BUN/Creatinine Ratio 14.3 (10.0-20.0)
[2024-11-30 12:34] LABS: Blood Urea Nitrogen 25 mg/dL (9-23); Chloride 119 mmol/L (98-107); Glucose 130 mg/dL (74-106); Sodium 154 mmol/L (136-145)
--- NOTE | 2024-11-30 13:20 | DVHSR ---
APPROVED REPORT EXAM: Two-dimensional and M-mode echocardiogram with Doppler and color Doppler. Blood Pressure: 130/55 mmHg INDICATION Elevated trops, R/O ACS, tachycardia RISK FACTORS Height: 70, Weight: 190 DIMENSIONS LVDd3.9 (3.8-5.7cm)LA (2D) (1.9-4.0cm)Aortic Root3.2 (2.0-3.7cm) LVDs2.6 (2.5-4.0cm)LA (MM) (1.9-4.0cm)Aortic Cusp Exc1.7 (1.5-2.0cm) EF (%) 63.0 (55-70%)Rt. Atrium (1.9-4.0cm)Asc. Aorta cm Mitral Valve MitralMitral Stenosis E wave0.51m/sMV Mean GR.mmHg A wave0.53m/sMV Peak GR.mmHg E/A ratio1.02D MVAcm2 DECEL [id number] 1/2 Timems Aortic Valve Aortic ValveAortic Stenosis V11.02m/Destiny Mean GR.2mmHg V21.04m/Destiny Peak GR.4mmHg LVOT Diameter2.2 (1.8-2.4cm)Doppler AVA3.73cm2 Tricuspid Valve TR Velocity2.76m/s [id number] Other Information Technically limited study due to body habitus and patient position. Patient was non compliant during exam. Patient refusing to turn on his side. Patient kept moving during exam and would hold his breat h all throughout exam. Conclusion Left ventricle is normal size with normal systolic function. The LVEF was around 65%. There was no gross wall motion ophthalmology. Right ventricle is mildly dilated with normal systolic function. With atrial were normal size. Aortic valve was trileaflet. There was no aortic insufficiency/stenosis. There was trace mitral/tri cuspid regurgitation. Pulmonary valve was not well visualized. Right ventricular systolic pressure was assessed at 45 mm Hg. IVC was not well visualized. There wa s trace pulmonary valve insufficiency.
--- NOTE | 2024-11-30 13:25 | DVHPN2 ---
Progress Note Date Seen: November 30, 2024 Medical Necessity Reason Pt with a Central, PICC or Fol: Yes The following are medically ne: Leyva Catheter Subjective Review of Systems Pt is more alert today. Pt responds with one word when asked questions. Reports he has been drinking fluids, RN verified he has. Patient reports: No new complaints Objective vital signs Vital Sign Date Time Temp Pulse Resp B/P (MAP) Pulse Ox O2 Delivery O2 Flow Rate FiO2 11/30/24 12:00 121 11/30/24 12:00 19 100/73 (82) 99 11/30/24 08:20 Nasal Cannula* 2 28 11/30/24 08:00 97.8 97.8 Total Intake and Output 11/29/24 11/29/24 11/30/24 15:00 23:00 07:00 Intake Total 100 ml Balance 100 ml medications Current Medications Medications Dose Ordered Sig/Vikram Route Start Time Stop Time Status Last Admin Dose Admin Levofloxacin/ Dextrose 100 ml @ 100 mls/hr DAILY IV 11/29/24 10:00 11/30/24 08:47 100 MLS/HR Oxcarbazepine 300 mg BID PO 11/28/24 22:00 11/29/24 22:11 300 MG Pantoprazole Sodium 40 mg BIDAC PO 11/29/24 07:00 11/30/24 06:38 40 MG Sucralfate 1 gm QIDACHS PO 11/28/24 22:00 11/30/24 06:38 1 GM Cholecalciferol 2,000 unit DAILY PO 11/29/24 10:00 11/29/24 10:16 2,000 UNIT Fluoxetine HCl 40 mg DAILY PO 11/29/24 10:00 11/29/24 10:17 40 MG Sodium Chloride 10 ml Q8HR IV 11/28/24 22:00 11/30/24 13:07 10 ML Docusate Sodium 100 mg BIDPRN PRN PO 11/28/24 21:00 Acetaminophen 650 mg Q6HP PRN PO 11/28/24 21:00 11/30/24 01:50 650 MG Acetaminophen/ Hydrocodone Bitart 1 tab Q4HP PRN PO 11/28/24 21:00 Ondansetron HCl 4 mg Q4HP PRN IV 11/28/24 21:00 Metoprolol Tartrate 2.5 mg Q6HPRN PRN IV 11/29/24 01:30 11/29/24 08:59 2.5 MG Examination Gen: NAD HEENT: PERRLA, Mucous membranes moist Lungs: Bilateral air entry. No rales Heart: RRR, normal S1 and S2 Ext: nonpitting BLE edema Neuro: A&Ox2 laboratory and microbiology Laboratory Tests 11/30/24 11:55 11/30/24 05:21 Test 11/30/24 11:55 Range/Units Serum Glucose 130 H 74-106 mg/dL Microbiology Date/Time Source Procedure Growth Status 11/28/24 19:48 Blood Blood Culture - Preliminary NO GROWTH AFTER 24 HOURS OF INCUBATION. Resulted Labs and/or images reviewed: Labs reviewed by me Problem List/Assessment/Plan Problem List/Assessment/Plan IMP: 1. MARSHA hemodynamically mediated- downtrending creat, GFR improving 2. Unknown baseline serum creat, GFR 3. Dehydration 4. Hx of nephrolithiasis 5. Illicit drug use 6. NSTEMI- cardiology following 11/28- Renal U/S impression: No renal abnormality REC: - Serial chemistry panels q 6hrs - Strict I&Os - Continue 1/2 NS IVF - Encourage free water - Avoidance of ACEI, ARB, NSAIDs, and contrast studies if able during time course of MARSHA - Will continue to follow closely Case discussed with Dr. Almas Cruz Plan discussed with: Patient, Other (RN) My Orders My Orders Orders - DORCAS BRYSON Procedure Category Date Status Time Sod Chl 0.45% (Sodium PHA 11/30/24 In Process Chloride 0.45% Via 11:00 DORCAS BRYSON November 30, 2024 13:24
--- NOTE | 2024-11-30 18:12 | DVHPN2 ---
Subjective Patient was seen and evaluated by me physically in room 1. Of ED. Patient's mom at bedside. Patient currently more awake alert today. Changes from previous H/P or p: No Changes Objective Vitals Vital Signs Date Time Temp Pulse Resp B/P (MAP) Pulse Ox O2 Delivery O2 Flow Rate FiO2 11/30/24 18:00 110 11 126/80 (95) 98 11/30/24 08:20 Nasal Cannula* 2 28 11/30/24 08:00 97.8 97.8 Intake/Output Intake and Output 11/30/24 07:00 Intake Total 100 ml Balance 100 ml IV Total 100 ml Exam HEENT pupils are reactive Neck is supple CV is S1-S2 regular rate and rhythm Respiratory diminished breath sound bases GI posterior bowel sound Extremity no edema BACKGROUND CHECK COORDINATOR following commands. Medications Current Medications Medications Dose Ordered Sig/Vikram Route Start Time Stop Time Status Last Admin Dose Admin Levofloxacin/ Dextrose 100 ml @ 100 mls/hr DAILY IV 11/29/24 10:00 11/30/24 08:47 100 MLS/HR Oxcarbazepine 300 mg BID PO 11/28/24 22:00 11/29/24 22:11 300 MG Pantoprazole Sodium 40 mg BIDAC PO 11/29/24 07:00 11/30/24 06:38 40 MG Sucralfate 1 gm QIDACHS PO 11/28/24 22:00 11/30/24 06:38 1 GM Cholecalciferol 2,000 unit DAILY PO 11/29/24 10:00 11/29/24 10:16 2,000 UNIT Fluoxetine HCl 40 mg DAILY PO 11/29/24 10:00 11/29/24 10:17 40 MG Sodium Chloride 10 ml Q8HR IV 11/28/24 22:00 11/30/24 13:07 10 ML Docusate Sodium 100 mg BIDPRN PRN PO 11/28/24 21:00 Acetaminophen 650 mg Q6HP PRN PO 11/28/24 21:00 11/30/24 01:50 650 MG Acetaminophen/ Hydrocodone Bitart 1 tab Q4HP PRN PO 11/28/24 21:00 Ondansetron HCl 4 mg Q4HP PRN IV 11/28/24 21:00 Metoprolol Tartrate 2.5 mg Q6HPRN PRN IV 11/29/24 01:30 11/29/24 08:59 2.5 MG Laboratory Results Laboratory Tests 11/30/24 05:21 11/30/24 11:55 Chemistry Test 11/29/24 20:40 11/30/24 00:20 11/30/24 05:21 11/30/24 11:55 Calcium Level 9.1 mg/dL (8.7-10.4) 8.6 mg/dL (8.7-10.4) L 8.6 mg/dL (8.7-10.4) L 9.4 mg/dL (8.7-10.4) Urinalysis Test 11/28/24 20:00 11/29/24 08:00 Urine Color Yellow (Yellow) Urine Clarity Turbid (Clear) H Urine pH 6.0 (5.0-9.0) Urine Specific [place] 1.020 (1.001-1.035) Urine Protein 1+ (Negative) H Urine Ketones Negative (Negative) Urine Blood 1+ /uL (Negative) H Urine Nitrite Negative (Negative) Urine Bilirubin Negative (Negative) Urine Urobilinogen 2 mg/dL (Negative) H Urine Leukocyte Esterase Negative /uL (Negative) Urine RBC 3 /hpf (0 - 3) Urine Microscopic WBC 5 /HPF (0-3) H Urine Squamous Epithelial Cells Few /hpf (<5) Urine Bacteria None seen /hpf (None Seen) Urine Mucus Few (None Seen) Urine Glucose Trace mg/dL (Normal) Urine Creatinine 181.34 mg/dL (30.0-125.0) H Urine Sodium 47 mmol/L (40-220) Microbiology Microbiology Date/Time Source Procedure Growth Status 11/28/24 19:48 Blood Blood Culture - Preliminary NO GROWTH AFTER 24 HOURS OF INCUBATION. Resulted Assessment/Plan Assessment/Plan 73-year-old male with a known history of bipolar disorder, ADHD, anxiety and depression disorder, previous history of alcohol use presented to the hospital with altered mental status for last two days found to have 1. Hypovolemic shock 2. Severe hypernatremia suspect secondary to dehydration 3. Acute kidney injury suspected secondary to vasomotor nephropathy 4. Acute metabolic encephalopathy 5. Suspected illicit substance overdose 6. NSTEMI type 2 7. ADHD Continue IV fluids, follow up nephrology recommendations, plan of care discussed with bedside RN has been as patient's moment bedside Plan discussed with: Patient (Patient is moment bedside.), Other Date of Service: November 30, 2024 Billing Provider: NICO TODD MD Common Visit Codes: [id number] INP/OBS CARE(MOD) NICO TODD MD November 30, 2024 18:12
[2024-11-30 19:00] LABS: Potassium 3.9 mmol/L (3.5-5.1)
[2024-11-30] MEDS: SOD CHL 0.45% 1,000 ML IV SCH (19:00)
[2024-11-30 19:01] LABS: Anion Gap 12 (5-15); Carbon Dioxide 24 mmol/L (20-31)
[2024-11-30 19:02] LABS: Calcium 8.9 mg/dL (8.7-10.4)
[2024-11-30 19:06] LABS: BUN/Creatinine Ratio 18.7 (10.0-20.0)
[2024-11-30 19:12] LABS: Blood Urea Nitrogen 31 mg/dL (9-23); Chloride 117 mmol/L (98-107); Glucose 140 mg/dL (74-106); Sodium 153 mmol/L (136-145)
[2024-11-30 19:56] VITALS: O2SAT 97
[2024-12-01 01:58] LABS: Potassium 3.6 mmol/L (3.5-5.1)
[2024-12-01 01:59] LABS: Anion Gap 11 (5-15); Carbon Dioxide 24 mmol/L (20-31)
[2024-12-01 02:03] LABS: Calcium 8.4 mg/dL (8.7-10.4); Chloride 116 mmol/L (98-107); Sodium 151 mmol/L (136-145)
[2024-12-01 02:04] LABS: BUN/Creatinine Ratio 15.4 (10.0-20.0); Blood Urea Nitrogen 21 mg/dL (9-23); Glucose 106 mg/dL (74-106)
[2024-12-01 05:25] LABS: Anion Gap 14 (5-15); Carbon Dioxide 24 mmol/L (20-31); Potassium 3.5 mmol/L (3.5-5.1)
[2024-12-01 05:27] LABS: Calcium 8.9 mg/dL (8.7-10.4)
[2024-12-01 05:29] LABS: Chloride 115 mmol/L (98-107); Sodium 153 mmol/L (136-145)
[2024-12-01 05:32] LABS: BUN/Creatinine Ratio 13.9 (10.0-20.0); Blood Urea Nitrogen 20 mg/dL (9-23); Glucose 103 mg/dL (74-106)
--- NOTE | 2024-12-01 14:51 | DVHPN2 ---
Progress Note - Dictate Date Seen: December 01, 2024 Medical Necessity Reason Pt with a Central, PICC or Fol: Yes The following are medically ne: Leyva Catheter Subjective Awake, responsive, appears anxious vital signs Vital Sign Date Time Temp Pulse Resp B/P (MAP) Pulse Ox O2 Delivery O2 Flow Rate FiO2 12/01/24 13:39 151 129/75 12/01/24 13:31 97.0 35 98 97.0 12/01/24 08:00 Nasal Cannula* 2 28 Total Intake and Output 11/30/24 11/30/24 12/01/24 15:00 23:00 07:00 Intake Total 480 ml Balance 480 ml medications Current Medications Medications Dose Ordered Sig/Vikram Route Start Time Stop Time Status Last Admin Dose Admin Levofloxacin/ Dextrose 100 ml @ 100 mls/hr DAILY IV 11/29/24 10:00 12/01/24 10:51 100 MLS/HR Oxcarbazepine 300 mg BID PO 11/28/24 22:00 12/01/24 10:51 300 MG Pantoprazole Sodium 40 mg BIDAC PO 11/29/24 07:00 12/01/24 07:00 40 MG Sucralfate 1 gm QIDACHS PO 11/28/24 22:00 12/01/24 11:49 1 GM Cholecalciferol 2,000 unit DAILY PO 11/29/24 10:00 12/01/24 10:51 2,000 UNIT Fluoxetine HCl 40 mg DAILY PO 11/29/24 10:00 12/01/24 10:51 40 MG Sodium Chloride 10 ml Q8HR IV 11/28/24 22:00 12/01/24 06:00 10 ML Docusate Sodium 100 mg BIDPRN PRN PO 11/28/24 21:00 Acetaminophen 650 mg Q6HP PRN PO 11/28/24 21:00 11/30/24 01:50 650 MG Acetaminophen/ Hydrocodone Bitart 1 tab Q4HP PRN PO 11/28/24 21:00 Ondansetron HCl 4 mg Q4HP PRN IV 11/28/24 21:00 Metoprolol Tartrate 2.5 mg Q6HPRN PRN IV 11/29/24 01:30 12/01/24 13:39 2.5 MG Dextrose 1,000 ml @ 125 mls/hr Q8H IV 12/01/24 13:00 Metoprolol Tartrate 25 mg BID PO 12/01/24 22:00 objective Gen: nad heent: nc/at, dry oral mucosa lungs: cta anteriorly cvs: no rub abd: soft, bowel sounds audible ext: no edema skin: no rash laboratory and microbiology Laboratory Tests 11/30/24 05:21 Test 12/01/24 12:20 Range/Units Serum Glucose Pending Assessment/Plan IMP: 1. MARSHA hemodynamically mediated- downtrending creat, GFR improving 2. Unknown baseline serum creat, GFR 3. Dehydration 4. Hx of nephrolithiasis 5. Illicit drug use 6. NSTEMI- cardiology following 11/28- Renal U/S impression: No renal abnormality REC: - we will increase hypotonic IV fluids - target serum sodium in the high 140 range over the next 12-24 hours. Plan discussed with: Other YINA MORENO MD December 01, 2024 14:51
[2024-12-01 15:30] VITALS: BP 132/90; PULSE 141; RESP 20; TEMP 99.1; O2SAT 97
--- NOTE | 2024-12-01 15:45 | DVHPN2 ---
Subjective Patient's sodium is improving very slowly. Patient has a tachycardia, beta purnima will be scheduled. Changes from previous H/P or p: No Changes Objective Vitals Vital Signs Date Time Temp Pulse Resp B/P (MAP) Pulse Ox O2 Delivery O2 Flow Rate FiO2 12/01/24 13:39 151 129/75 12/01/24 13:31 97.0 35 98 97.0 12/01/24 08:00 Nasal Cannula* 2 28 Intake/Output Intake and Output 12/01/24 07:00 Intake Total 480 ml Balance 480 ml Intake Oral 480 ml Exam HEENT pupils are reactive Neck is supple CV is S1-S2 regular rate and rhythm Respiratory diminished breath sound bases GI posterior bowel sound Extremity no edema INSURANCE DEFENSE ATTORNEY following commands. Medications Current Medications Medications Dose Ordered Sig/Vikram Route Start Time Stop Time Status Last Admin Dose Admin Levofloxacin/ Dextrose 100 ml @ 100 mls/hr DAILY IV 11/29/24 10:00 12/01/24 10:51 100 MLS/HR Oxcarbazepine 300 mg BID PO 11/28/24 22:00 12/01/24 10:51 300 MG Pantoprazole Sodium 40 mg BIDAC PO 11/29/24 07:00 12/01/24 07:00 40 MG Sucralfate 1 gm QIDACHS PO 11/28/24 22:00 12/01/24 11:49 1 GM Cholecalciferol 2,000 unit DAILY PO 11/29/24 10:00 12/01/24 10:51 2,000 UNIT Fluoxetine HCl 40 mg DAILY PO 11/29/24 10:00 12/01/24 10:51 40 MG Sodium Chloride 10 ml Q8HR IV 11/28/24 22:00 12/01/24 06:00 10 ML Docusate Sodium 100 mg BIDPRN PRN PO 11/28/24 21:00 Acetaminophen 650 mg Q6HP PRN PO 11/28/24 21:00 11/30/24 01:50 650 MG Acetaminophen/ Hydrocodone Bitart 1 tab Q4HP PRN PO 11/28/24 21:00 Ondansetron HCl 4 mg Q4HP PRN IV 11/28/24 21:00 Metoprolol Tartrate 2.5 mg Q6HPRN PRN IV 11/29/24 01:30 12/01/24 13:39 2.5 MG Dextrose 1,000 ml @ 125 mls/hr Q8H IV 12/01/24 13:00 Metoprolol Tartrate 25 mg BID PO 12/01/24 22:00 Laboratory Results Laboratory Tests 11/30/24 05:21 Chemistry Test 11/30/24 18:04 12/01/24 01:40 12/01/24 05:03 12/01/24 12:20 Calcium Level 8.9 mg/dL (8.7-10.4) 8.4 mg/dL (8.7-10.4) L 8.9 mg/dL (8.7-10.4) Pending Urinalysis Test 11/28/24 20:00 11/29/24 08:00 Urine Color Yellow (Yellow) Urine Clarity Turbid (Clear) H Urine pH 6.0 (5.0-9.0) Urine Specific [place] 1.020 (1.001-1.035) Urine Protein 1+ (Negative) H Urine Ketones Negative (Negative) Urine Blood 1+ /uL (Negative) H Urine Nitrite Negative (Negative) Urine Bilirubin Negative (Negative) Urine Urobilinogen 2 mg/dL (Negative) H Urine Leukocyte Esterase Negative /uL (Negative) Urine RBC 3 /hpf (0 - 3) Urine Microscopic WBC 5 /HPF (0-3) H Urine Squamous Epithelial Cells Few /hpf (<5) Urine Bacteria None seen /hpf (None Seen) Urine Mucus Few (None Seen) Urine Glucose Trace mg/dL (Normal) Urine Creatinine 181.34 mg/dL (30.0-125.0) H Urine Sodium 47 mmol/L (40-220) Microbiology Microbiology Date/Time Source Procedure Growth Status 11/28/24 19:48 Blood Blood Culture - Preliminary NO GROWTH AFTER 48 HOURS OF INCUBATION. Resulted Assessment/Plan Assessment/Plan 73-year-old male with a known history of bipolar disorder, ADHD, anxiety and depression disorder, previous history of alcohol use presented to the hospital with altered mental status for last two days found to have 1. Hypovolemic shock 2. Severe hypernatremia suspect secondary to dehydration 3. Acute kidney injury suspected secondary to vasomotor nephropathy 4. Acute metabolic encephalopathy 5. Suspected illicit substance overdose 6. NSTEMI type 2 7. ADHD Continue IV fluids, follow up nephrology recommendations, plan of care discussed with bedside RN has been as patient's moment bedside -start metoprolol tartrate 25 mg p.o. twice a day for sinus tachycardia in 130s. Plan discussed with: Other My Orders Orders - NICO TODD MD Procedure Category Date Status Time Communication Order ORDERS 11/30/24 Transmitted 18:12 Metoprolol Tartrate PHA 12/01/24 In Process Tablet (Lopressor Ta 22:00 Date of Service: December 01, 2024 Billing Provider: NICO TODD MD Common Visit Codes: [id number] INP/OBS CARE(MOD) NICO TODD MD December 01, 2024 15:45
[2024-12-01 16:41] LABS: Anion Gap 12 (5-15); Calcium 9.4 mg/dL (8.7-10.4); Carbon Dioxide 23 mmol/L (20-31)
[2024-12-01 16:42] LABS: Chloride 115 mmol/L (98-107); Potassium 3.2 mmol/L (3.5-5.1); Sodium 150 mmol/L (136-145)
[2024-12-01 16:46] LABS: BUN/Creatinine Ratio 14.9 (10.0-20.0); Blood Urea Nitrogen 20 mg/dL (9-23)
[2024-12-01 16:48] LABS: Glucose 155 mg/dL (74-106)
[2024-12-01 17:14] VITALS: BP 120/70; PULSE 120; TEMP 98.3; O2SAT 93
[2024-12-01 18:17] VITALS: BP 132/90; PULSE 141; RESP 18; TEMP 99.1; O2SAT 97
[2024-12-01] MEDS: D5W 5% 1,000 ML IV SCH (18:32)
[2024-12-01 18:41] VITALS: PULSE 130; RESP 19; O2SAT 97
[2024-12-01 20:00] VITALS: PULSE 122; PULSE 128; RESP 18; O2SAT 94
[2024-12-01] MEDS: HYDROcodone-ACET 5/325MG TAB PO PRN (21:31)
[2024-12-01] MEDS: METOPROLOL TARTRATE 25 MG TAB PO SCH (21:32)
[2024-12-01] MEDS: QUEtiapine FUMARATE 25 MG TAB PO ONE (22:58)
[2024-12-02 08:00] VITALS: PULSE 101; PULSE 96; RESP 18; O2SAT 96
[2024-12-02 09:00] VITALS: BP 121/65; PULSE 101; RESP 18; TEMP 99; O2SAT 94
--- NOTE | 2024-12-02 12:30 | ECG ---
[facility] Test Date: 2024-11-28 Test Time: 19:35:11 Pat Name: ALDEN DUFF Department: ED Room: 0205T A Gender: M Tag And Label Cutter: PAULA : 1990 Requested By: JUANA CASANOVA Order Number: [id number] Reading MD: Kavon Romero Measurements Intervals [place] Rate: 140 P: 71 OR: 101 QRS: 63 QRSD: 68 T: 0 QT: 363 QTc: 554 Interpretive Statements Sinus tachycardia Nonspecific T abnormalities, lateral leads Prolonged QT interval Electronically Signed On 12-07-2024 21:35:32 PDT by Kavon Romero Please click the below link to view image of tracing.
--- NOTE | 2024-12-02 12:30 | ECG ---
[facility] Test Date: 2024-11-28 Test Time: 17:28:49 Pat Name: ALDEN DUFF Department: ED Room: 0205T A Gender: M Director Of Social Services: estephanie : 1990 Requested By: JUANA CASANOVA Order Number: [id number] Reading MD: Kavon Romero Measurements Intervals [place] Rate: 158 P: 71 DE: 60 QRS: 48 QRSD: 72 T: 120 QT: 327 QTc: 530 Interpretive Statements Sinus tachycardia Nonspecific T abnormalities, lateral leads Prolonged QT interval Electronically Signed On 12-07-2024 21:35:26 PDT by Kavon Romero Please click the below link to view image of tracing.
[2024-12-02 13:00] VITALS: BP 117/72; PULSE 92; RESP 18; TEMP 98.4; O2SAT 96
[2024-12-02 14:23] LABS: Basophils # (auto) 0.1 10 ^3/uL (0-0.2); Basophils % (auto) 0.6 % (0.0-2.0); Eosinophils # (auto) 0.3 10 ^3/uL (0-0.8); Eosinophils % (auto) 2.7 % (0.0-7.0); Hematocrit 42.4 % (41.0-53.0); Hemoglobin 14.3 g/dL (13.5-17.5); Lymphocytes # (auto) 2.2 10 ^3/uL (0.4-5.4); Mean Corpuscular Hemoglobin 30.7 pg (28.0-32.0); Mean Corpuscular Hgb Conc. 33.7 g/dL (32.0-36.0); Mean Corpuscular Volume 91.3 fL (80.0-100.0); Monocytes # (auto) 0.6 10 ^3/uL (0-1.3); Monocytes % (auto) 5.6 % (0.0-12.0); Neutrophils # (auto) 8.3 10 ^3/uL (1.6-8.6); Neutrophils % (auto) 72.1 % (37.0-80.0); Red Blood Cells 4.65 10^6/uL (4.5-5.90); Red Cell Distribution Width 14.2 % (11.8-14.3); White Blood Cell 11.5 10^3/uL (4.4-10.8)
[2024-12-02 14:31] LABS: Anion Gap 12 (5-15); Carbon Dioxide 21 mmol/L (20-31)
[2024-12-02 14:36] LABS: BUN/Creatinine Ratio 10.1 (10.0-20.0); Blood Urea Nitrogen 15 mg/dL (9-23); Chloride 113 mmol/L (98-107); Glucose 136 mg/dL (74-106); Potassium 3.3 mmol/L (3.5-5.1); Sodium 146 mmol/L (136-145)
--- NOTE | 2024-12-02 15:01 | DVHPN2 ---
Subjective Patient is still has a one-to-one sitter. Changes from previous H/P or p: No Changes Objective Vitals Vital Signs Date Time Temp Pulse Resp B/P (MAP) Pulse Ox O2 Delivery O2 Flow Rate FiO2 12/02/24 11:01 98 119/69 12/02/24 08:00 18 96 Room Air* 0 21 12/01/24 18:17 99.1 99.1 Intake/Output Intake and Output 12/02/24 07:00 Intake Total 1035 ml Output Total 150 ml Balance 885 ml Intake Oral 560 ml IV Total 475 ml Output Urine Total 150 ml Exam HEENT pupils are reactive Neck is supple CV is S1-S2 regular rate and rhythm Respiratory diminished breath sound bases GI posterior bowel sound Extremity no edema RIVER DRIVER following commands. Medications Current Medications Medications Dose Ordered Sig/Vikram Route Start Time Stop Time Status Last Admin Dose Admin Levofloxacin/ Dextrose 100 ml @ 100 mls/hr DAILY IV 11/29/24 10:00 12/01/24 10:51 100 MLS/HR Oxcarbazepine 300 mg BID PO 11/28/24 22:00 12/02/24 10:01 300 MG Pantoprazole Sodium 40 mg BIDAC PO 11/29/24 07:00 12/01/24 17:07 40 MG Sucralfate 1 gm QIDACHS PO 11/28/24 22:00 12/02/24 12:59 1 GM Cholecalciferol 2,000 unit DAILY PO 11/29/24 10:00 12/02/24 10:01 2,000 UNIT Fluoxetine HCl 40 mg DAILY PO 11/29/24 10:00 12/02/24 10:02 40 MG Sodium Chloride 10 ml Q8HR IV 11/28/24 22:00 12/01/24 21:30 10 ML Docusate Sodium 100 mg BIDPRN PRN PO 11/28/24 21:00 Acetaminophen 650 mg Q6HP PRN PO 11/28/24 21:00 12/02/24 12:59 650 MG Acetaminophen/ Hydrocodone Bitart 1 tab Q4HP PRN PO 11/28/24 21:00 12/02/24 10:02 1 TAB Ondansetron HCl 4 mg Q4HP PRN IV 11/28/24 21:00 Metoprolol Tartrate 2.5 mg Q6HPRN PRN IV 11/29/24 01:30 12/01/24 13:39 2.5 MG Dextrose 1,000 ml @ 125 mls/hr Q8H IV 12/01/24 13:00 12/01/24 18:32 125 MLS/HR Metoprolol Tartrate 25 mg BID PO 12/01/24 22:00 12/02/24 10:01 25 MG Laboratory Results Laboratory Tests 12/02/24 14:10 Chemistry Test 12/01/24 16:22 12/02/24 14:10 Calcium Level 9.4 mg/dL (8.7-10.4) 9.0 mg/dL (8.7-10.4) Urinalysis Test 11/28/24 20:00 11/29/24 08:00 Urine Color Yellow (Yellow) Urine Clarity Turbid (Clear) H Urine pH 6.0 (5.0-9.0) Urine Specific [place] 1.020 (1.001-1.035) Urine Protein 1+ (Negative) H Urine Ketones Negative (Negative) Urine Blood 1+ /uL (Negative) H Urine Nitrite Negative (Negative) Urine Bilirubin Negative (Negative) Urine Urobilinogen 2 mg/dL (Negative) H Urine Leukocyte Esterase Negative /uL (Negative) Urine RBC 3 /hpf (0 - 3) Urine Microscopic WBC 5 /HPF (0-3) H Urine Squamous Epithelial Cells Few /hpf (<5) Urine Bacteria None seen /hpf (None Seen) Urine Mucus Few (None Seen) Urine Glucose Trace mg/dL (Normal) Urine Creatinine 181.34 mg/dL (30.0-125.0) H Urine Sodium 47 mmol/L (40-220) Microbiology Microbiology Date/Time Source Procedure Growth Status 11/28/24 19:48 Blood Blood Culture - Preliminary NO GROWTH AFTER 72 HOURS OF INCUBATION. Resulted Assessment/Plan Assessment/Plan 73-year-old male with a known history of bipolar disorder, ADHD, anxiety and depression disorder, previous history of alcohol use presented to the hospital with altered mental status for last two days found to have 1. Hypovolemic shock , resolved 2. Severe hypernatremia suspect secondary to dehydration, improving 3. Acute kidney injury suspected secondary to vasomotor nephropathy 4. Acute metabolic encephalopathy, significantly improved 5. Suspected illicit substance overdose 6. NSTEMI type 2 secondary to systemic inflammatory response syndrome. 7. ADHD Continue IV fluids, follow up nephrology recommendations, plan of care discussed with bedside RN . - Plan discussed with: Patient My Orders Orders - NICO TODD MD Procedure Category Date Status Time Basic Metabolic Panel LAB 12/03/24 Verified 06:00 Complete Blood Count LAB 12/03/24 Verified 06:00 Magnesium LAB 12/03/24 Verified 06:00 Date of Service: December 02, 2024 Billing Provider: NICO TODD MD Common Visit Codes: [id number] INP/OBS CARE(MOD) NICO TODD MD December 02, 2024 15:01
[2024-12-02 15:13] LABS: Platelet Count (auto) 93 10^3/uL (140-450)
[2024-12-02 17:00] VITALS: BP 151/84; PULSE 104; RESP 18; TEMP 98.2; O2SAT 96
--- NOTE | 2024-12-02 19:29 | DVHPN2 ---
Progress Note - Dictate Date Seen: December 02, 2024 Medical Necessity Reason Pt with a Central, PICC or Fol: Yes The following are medically ne: Leyva Catheter Subjective Patient seen earlier this morning, resting comfortably. vital signs Vital Sign Date Time Temp Pulse Resp B/P (MAP) Pulse Ox O2 Delivery O2 Flow Rate FiO2 12/02/24 17:00 98.2 104 18 151/84 (106) 96 98.2 12/02/24 08:00 Room Air* 0 21 Total Intake and Output 12/01/24 12/01/24 12/02/24 15:00 23:00 07:00 Intake Total 475 ml 360 ml 200 ml Output Total 150 ml Balance 475 ml 360 ml 50 ml medications Current Medications Medications Dose Ordered Sig/Vikram Route Start Time Stop Time Status Last Admin Dose Admin Levofloxacin/ Dextrose 100 ml @ 100 mls/hr DAILY IV 11/29/24 10:00 12/01/24 10:51 100 MLS/HR Oxcarbazepine 300 mg BID PO 11/28/24 22:00 12/02/24 10:01 300 MG Pantoprazole Sodium 40 mg BIDAC PO 11/29/24 07:00 12/02/24 17:35 40 MG Sucralfate 1 gm QIDACHS PO 11/28/24 22:00 12/02/24 17:35 1 GM Cholecalciferol 2,000 unit DAILY PO 11/29/24 10:00 12/02/24 10:01 2,000 UNIT Fluoxetine HCl 40 mg DAILY PO 11/29/24 10:00 12/02/24 10:02 40 MG Sodium Chloride 10 ml Q8HR IV 11/28/24 22:00 12/01/24 21:30 10 ML Docusate Sodium 100 mg BIDPRN PRN PO 11/28/24 21:00 Acetaminophen 650 mg Q6HP PRN PO 11/28/24 21:00 12/02/24 12:59 650 MG Acetaminophen/ Hydrocodone Bitart 1 tab Q4HP PRN PO 11/28/24 21:00 12/02/24 10:02 1 TAB Ondansetron HCl 4 mg Q4HP PRN IV 11/28/24 21:00 Metoprolol Tartrate 2.5 mg Q6HPRN PRN IV 11/29/24 01:30 5/26/25 13:39 2.5 MG Dextrose 1,000 ml @ 125 mls/hr Q8H IV 12/01/24 13:00 12/01/24 18:32 125 MLS/HR Metoprolol Tartrate 25 mg BID PO 12/01/24 22:00 12/02/24 10:01 25 MG objective Gen: nad heent: nc/at, dry oral mucosa lungs: cta anteriorly cvs: no rub abd: soft, bowel sounds audible ext: no edema skin: no rash laboratory and microbiology Laboratory Tests 12/02/24 14:10 Test 12/02/24 14:10 Range/Units Serum Glucose 136 H 74-106 mg/dL Assessment/Plan IMP: 1. MARSHA hemodynamically mediated- downtrending creat, GFR improving 2. Unknown baseline serum creat, GFR 3. Dehydration 4. Hx of nephrolithiasis 5. Illicit drug use 6. NSTEMI- cardiology following 11/28- Renal U/S impression: No renal abnormality REC: - we will continue with current dose of hypotonic IV fluids, hypernatremia improving - clinically stable from Nephrology perspective. Plan discussed with: Other YINA MORENO MD December 02, 2024 19:29
[2024-12-02 20:00] VITALS: PULSE 105; PULSE 117; RESP 18; O2SAT 94
[2024-12-02] MEDS: LORazepam 2MG/ML-1ML VIAL IM ONE (20:42)
[2024-12-02 21:00] VITALS: BP 154/97; PULSE 105; RESP 18; TEMP 98.7; O2SAT 94
[2024-12-03 05:00] VITALS: BP 109/76; PULSE 105; RESP 16; TEMP 97.8; O2SAT 97
[2024-12-03 06:38] LABS: Basophils # (auto) 0.1 10 ^3/uL (0-0.2); Basophils % (auto) 0.6 % (0.0-2.0); Eosinophils # (auto) 0.3 10 ^3/uL (0-0.8); Eosinophils % (auto) 2.5 % (0.0-7.0); Hematocrit 44.9 % (41.0-53.0); Lymphocytes % (auto) 25.3 % (10.0-50.0); Mean Corpuscular Hemoglobin 30.5 pg (28.0-32.0); Mean Corpuscular Hgb Conc. 33.4 g/dL (32.0-36.0); Mean Corpuscular Volume 91.3 fL (80.0-100.0); Monocytes # (auto) 0.7 10 ^3/uL (0-1.3); Monocytes % (auto) 5.6 % (0.0-12.0); Neutrophils # (auto) 7.8 10 ^3/uL (1.6-8.6); Nucleated Red Blood Cells % 0.1 %; Platelet Count (auto) 99 10^3/uL (140-450); Red Blood Cells 4.92 10^6/uL (4.5-5.90); Red Cell Distribution Width 14.3 % (11.8-14.3); White Blood Cell 11.9 10^3/uL (4.4-10.8)
[2024-12-03 06:49] LABS: Calcium 9.3 mg/dL (8.7-10.4); Potassium 3.5 mmol/L (3.5-5.1)
[2024-12-03 06:50] LABS: Anion Gap 12 (5-15); Carbon Dioxide 24 mmol/L (20-31)
[2024-12-03 06:55] LABS: BUN/Creatinine Ratio 9.8 (10.0-20.0); Blood Urea Nitrogen 13 mg/dL (9-23); Glucose 87 mg/dL (74-106)
[2024-12-03 06:56] LABS: Magnesium 2.3 mg/dL (1.6-2.6)
[2024-12-03 07:05] LABS: Chloride 115 mmol/L (98-107); Sodium 151 mmol/L (136-145)
[2024-12-03 08:00] VITALS: PULSE 99; O2SAT 94
[2024-12-03 13:00] VITALS: BP 126/77; PULSE 82; RESP 17; TEMP 97.9; O2SAT 94
--- NOTE | 2024-12-03 14:16 | DVHDS2 ---
Discharge Summary Date of Admission November 28, 2024 at 20:53 Date of Discharge: December 03, 2024 Labs/Diagnostic Data: Laboratory Results Test 12/03/24 04:52 11/30/24 05:21 11/29/24 08:00 11/29/24 05:30 White Blood Count 11.9 10^3/uL (4.4-10.8) Red Blood Count 4.92 10^6/uL (4.5-5.90) Hemoglobin 15.0 g/dL (13.5-17.5) Hematocrit 44.9 % (41.0-53.0) Mean Corpuscular Volume 91.3 fL (80.0-100.0) Mean Corpuscular Hemoglobin 30.5 pg (28.0-32.0) Mean Corpuscular Hemoglobin Concent 33.4 g/dL (32.0-36.0) Red Cell Distribution Width 14.3 % (11.8-14.3) Platelet Count 99 10^3/uL (140-450) Mean Platelet Volume 11.7 fL (6.9-10.8) Neutrophils (%) (Auto) 66.0 % (37.0-80.0) Lymphocytes (%) (Auto) 25.3 % (10.0-50.0) Monocytes (%) (Auto) 5.6 % (0.0-12.0) Eosinophils (%) (Auto) 2.5 % (0.0-7.0) Basophils (%) (Auto) 0.6 % (0.0-2.0) Neutrophils # (Auto) 7.8 10 ^3/uL (1.6-8.6) Lymphocytes # (Auto) 3.0 10 ^3/uL (0.4-5.4) Monocytes # (Auto) 0.7 10 ^3/uL (0-1.3) Eosinophils # (Auto) 0.3 10 ^3/uL (0-0.8) Basophils # (Auto) 0.1 10 ^3/uL (0-0.2) Nucleated Red Blood Cells 0.1 % Sodium Level 151 mmol/L (136-145) Potassium Level 3.5 mmol/L (3.5-5.1) Chloride Level 115 mmol/L (98-107) Carbon Dioxide Level 24 mmol/L (20-31) Anion Gap 12 (5-15) Blood Urea Nitrogen 13 mg/dL (9-23) Creatinine 1.33 mg/dL (0.700-1.30) Glomerular Filtration Rate Calc 72 mL/min (>90) BUN/Creatinine Ratio 9.8 (10.0-20.0) Serum Glucose 87 mg/dL (74-106) Calcium Level 9.3 mg/dL (8.7-10.4) Magnesium Level 2.3 mg/dL (1.6-2.6) Uric Acid 18.3 mg/dL (3.7-9.2) Urine Creatinine 181.34 mg/dL (30.0-125.0) Urine Sodium 47 mmol/L (40-220) Thyroid Stimulating Hormone (TSH) 3.55 uIU/mL (0.55-4.78) Test 11/28/24 23:25 11/28/24 22:50 11/28/24 21:47 11/28/24 20:45 Total Bilirubin 1.1 mg/dL (0.2-1.0) Aspartate Amino Transferase (AST) 124 U/L (13-40) Alanine Aminotransferase (ALT) 147 U/L (7-40) Alkaline Phosphatase 66 U/L (46-116) Total Protein 5.7 g/dL (5.7-8.2) Albumin 3.8 g/dL (3.2-4.8) Troponin I High Sensitivity 87 ng/L (</=54) Lactic Acid Level 2.6 mmol/L (0.4-2.0) C-Reactive Protein High Sensitivity 0.10 mg/dL (<1.0) Test 11/28/24 20:00 11/28/24 19:48 Urine Color Yellow (Yellow) Urine Clarity Turbid (Clear) Urine pH 6.0 (5.0-9.0) Urine Specific [place] 1.020 (1.001-1.035) Urine Protein 1+ (Negative) Urine Ketones Negative (Negative) Urine Blood 1+ /uL (Negative) Urine Nitrite Negative (Negative) Urine Bilirubin Negative (Negative) Urine Urobilinogen 2 mg/dL (Negative) Urine Leukocyte Esterase Negative /uL (Negative) Urine RBC 3 /hpf (0 - 3) Urine Microscopic WBC 5 /HPF (0-3) Urine Squamous Epithelial Cells Few /hpf (<5) Urine Bacteria None seen /hpf (None Seen) Urine Mucus Few (None Seen) Urine Glucose Trace mg/dL (Normal) Urine Opiates Screen Neg (NEGATIVE) Urine Fentanyl Screen Neg (NEGATIVE) Urine Barbiturates Screen Neg (NEGATIVE) Urine Phencyclidine Screen Neg (NEGATIVE) Urine Amphetamines Screen Neg (NEGATIVE) Urine Benzodiazepines Screen Neg (NEGATIVE) Urine Cocaine Screen Neg (NEGATIVE) Urine Cannabinoids Screen Pos (NEGATIVE) Creatine Kinase 49 U/L (46-171) Lipase 71 U/L (12-53) Salicylates Level < 3.0 mg/dL (-30) Acetaminophen Level < 2.0 UG/ML (10.0-20.0) Plasma/Serum Blood Alcohol < 3.0 mg/dL (<10) Other Laboratory Tests 12/03/24 04:52 Brief Hx & Hospital Course: 73-year-old male with a known history of bipolar disorder, ADHD, anxiety and depression disorder, previous history of alcohol use presented to the hospital with altered mental status for last two days found to have hypovolemic shock secondary to dehydration and severe hypernatremia. Patient was given IV hydration as well as Nephrology was consulted. Patient's kidney functions as well as hyperkalemia was improving. Patient was found to have cannabinoid positive on the urine examination. Patient was also seen by Cardiology for NSTEMI type 2 which was thought secondary to systemic inflammatory response syndrome. Patient had a tele psych consult today when I saw the patient. Patient later on patient is a patient was signed against medical advice. Condition at Discharge: Undetermined Final Diagnosis/Problems List 73-year-old male with a known history of bipolar disorder, ADHD, anxiety and depression disorder, previous history of alcohol use presented to the hospital with altered mental status for last two days found to have 1. Hypovolemic shock , resolved 2. Severe hypernatremia suspect secondary to dehydration, improving 3. Acute kidney injury suspected secondary to vasomotor nephropathy 4. Acute metabolic encephalopathy, significantly improved 5. Suspected illicit substance overdose 6. NSTEMI type 2 secondary to systemic inflammatory response syndrome. 7. ADHD Discharge Disposition: [facility] Discharge Will this Physician continue t: No Discharge Statement: "Patient was advised to return to the ER or call 911 if any headaches, dizziness, shortness of breath, chest pain, abdominal pain, bleeding, fevers, or worsening of medical condition. Patient was counseled about treatment plan, medications, possible side effects, patientverbalized understanding. All questions were answered to the best of my ability. This discharge took greater then 30 minutes in planning, reviewing documentation, counseling the patient, and discussing with other team members." ASSESSMENT ASSESSMENT Assessment Date of Service: December 03, 2024 Billing Provider: NICO TODD MD Common Visit Codes: 72751-EZU/OBS DISCH DAY <30MIN NICO TODD MD December 03, 2024 14:16
--- NOTE | 2024-12-03 17:05 | DVHINCON2 ---
Date of Service if different f: December 03, 2024 Time of Service: 13:00 Consultation ([place]) Labs Laboratory Tests Test 11/28/24 19:48 11/28/24 20:00 11/28/24 20:45 11/28/24 21:47 Creatine Kinase 49 U/L (46-171) Lipase 71 U/L (12-53) Salicylates Level < 3.0 mg/dL (-30) Acetaminophen Level < 2.0 UG/ML (10.0-20.0) Plasma/Serum Blood Alcohol < 3.0 mg/dL (<10) Urine Color Yellow (Yellow) Urine Clarity Turbid (Clear) Urine pH 6.0 (5.0-9.0) Urine Specific Archie 1.020 (1.001-1.035) Urine Protein 1+ (Negative) Urine Ketones Negative (Negative) Urine Blood 1+ /uL (Negative) Urine Nitrite Negative (Negative) Urine Bilirubin Negative (Negative) Urine Urobilinogen 2 mg/dL (Negative) Urine Leukocyte Esterase Negative /uL (Negative) Urine RBC 3 /hpf (0 - 3) Urine Microscopic WBC 5 /HPF (0-3) Urine Squamous Epithelial Cells Few /hpf (<5) Urine Bacteria None seen /hpf (None Seen) Urine Mucus Few (None Seen) Urine Glucose Trace mg/dL (Normal) Urine Opiates Screen Neg (NEGATIVE) Urine Fentanyl Screen Neg (NEGATIVE) Urine Barbiturates Screen Neg (NEGATIVE) Urine Phencyclidine Screen Neg (NEGATIVE) Urine Amphetamines Screen Neg (NEGATIVE) Urine Benzodiazepines Screen Neg (NEGATIVE) Urine Cocaine Screen Neg (NEGATIVE) Urine Cannabinoids Screen Pos (NEGATIVE) C-Reactive Protein High Sensitivity 0.10 mg/dL (<1.0) Lactic Acid Level 2.6 mmol/L (0.4-2.0) Test 11/28/24 22:50 11/28/24 23:25 11/29/24 05:30 11/29/24 08:00 Troponin I High Sensitivity 87 ng/L (</=54) Total Bilirubin 1.1 mg/dL (0.2-1.0) Aspartate Amino Transf (AST/SGOT) 124 U/L (13-40) Alanine Aminotransferase (ALT/SGPT) 147 U/L (7-40) Alkaline Phosphatase 66 U/L (46-116) Total Protein 5.7 g/dL (5.7-8.2) Albumin 3.8 g/dL (3.2-4.8) Thyroid Stimulating Hormone (TSH) 3.55 uIU/mL (0.55-4.78) Urine Creatinine 181.34 mg/dL (30.0-125.0) Urine Sodium 47 mmol/L (40-220) Test 11/30/24 05:21 12/03/24 04:52 Uric Acid 18.3 mg/dL (3.7-9.2) White Blood Count 11.9 10^3/uL (4.4-10.8) Red Blood Count 4.92 10^6/uL (4.5-5.90) Hemoglobin 15.0 g/dL (13.5-17.5) Hematocrit 44.9 % (41.0-53.0) Mean Corpuscular Volume 91.3 fL (80.0-100.0) Mean Corpuscular Hemoglobin 30.5 pg (28.0-32.0) Mean Corpuscular Hemoglobin Concent 33.4 g/dL (32.0-36.0) Red Cell Distribution Width 14.3 % (11.8-14.3) Platelet Count 99 10^3/uL (140-450) Mean Platelet Volume 11.7 fL (6.9-10.8) Neutrophils (%) (Auto) 66.0 % (37.0-80.0) Lymphocytes (%) (Auto) 25.3 % (10.0-50.0) Monocytes (%) (Auto) 5.6 % (0.0-12.0) Eosinophils (%) (Auto) 2.5 % (0.0-7.0) Basophils (%) (Auto) 0.6 % (0.0-2.0) Neutrophils # (Auto) 7.8 10 ^3/uL (1.6-8.6) Lymphocytes # (Auto) 3.0 10 ^3/uL (0.4-5.4) Monocytes # (Auto) 0.7 10 ^3/uL (0-1.3) Eosinophils # (Auto) 0.3 10 ^3/uL (0-0.8) Basophils # (Auto) 0.1 10 ^3/uL (0-0.2) Nucleated Red Blood Cells 0.1 % Sodium Level 151 mmol/L (136-145) Potassium Level 3.5 mmol/L (3.5-5.1) Chloride Level 115 mmol/L (98-107) Carbon Dioxide Level 24 mmol/L (20-31) Anion Gap 12 (5-15) Blood Urea Nitrogen 13 mg/dL (9-23) Creatinine 1.33 mg/dL (0.700-1.30) Glomerular Filtration Rate Calc 72 mL/min (>90) BUN/Creatinine Ratio 9.8 (10.0-20.0) Serum Glucose 87 mg/dL (74-106) Calcium Level 9.3 mg/dL (8.7-10.4) Magnesium Level 2.3 mg/dL (1.6-2.6) Microbiology Date/Time Source Procedure Growth Status 11/28/24 19:48 Blood Blood Culture - Preliminary NO GROWTH AFTER 72 HOURS OF INCUBATION. Resulted Appetite: Fair Appearance: Stated age Psychomotor activity: WNL Behavioral: Cooperative Eye contact: Limited Speech: WNL Affect: Mood Congruent Mood: Irritable Thought processes: Linear/Goal-directed Thought content: Paranoid Suicidal ideations: Absent Homicidal ideations: Absent Orientation: Person, Place, Time, Situation Memory intact: Recent Intellect: Average Abstractability: WNL Concentration: Adequate Attention: Adequate Judgement: Limited Insight: Limited Vitals Vital Signs Date Time Temp Pulse Resp B/P (MAP) Pulse Ox O2 Delivery O2 Flow Rate FiO2 12/03/24 13:00 92 126/77 12/03/24 13:00 97.9 17 94 97.9 12/03/24 08:00 Room Air* 0 21 Treatment plan discussed: Family Medication adjusted: Yes Diagnosis: unspecified mood disorder Cannabis use Plan : Discussed to follow up with outpatient psychiatrist for medication management Patient denies Si/Hi and may discharge after medical clearance. Patient left AMA History of Present Illness Reason for Consult : Per reports hx of bipolar and having paranoid about hospital staff wanting to harm him HPI : This is a 31-year-old BIB ambulance after mother called 911. Patient is evaluated via telepsychiatry platform with mother at bedside On initial call, mom was on phone with outpatient psychiatrist. Workforce Management Manager later called back to talk with patient. Mom is giving most of history, very irritable and rarely allowing patient to answer even though he was very capable. Mom was upset about patient receiving Fluoxetine and she believed this was making him paranoid as she reported he was not previously on this medications. Mom also rep orte he had prior hx of hallucinations and paranoia after using Wellbutrin 15years ago. No recent hallucinations or paranoia since hospitalization here. He reports sleep and appetite were fine with use of Seroquel. Mom was very focal and reports not being happy with treatment or services from the hospital. Patient reports wanting to leave hospital. He also reported he believed people were after him and not hospital staff. He reported he did not known who was after him. He denies any auditory/visual hallucinations. He says he cannot recall what happened prior to admission here. Mom reports he stopped using psychotropic medications at home because he was ill, nauseous, vomiting and became dehydrated. Patient and mom deny any substance use. Mom later became more angry, saying she was done with interview and moved ipad out of the room and interview terminated. Past Psychiatric History : Mom reports he has hx of ADHD and Autism. Denies hx of depression or bipolar diagnoses. Mom reports, patient had one prior hold one month ago at this hospital for no reason. He has psychiatrist and prescribed Klonopin 2mg BID, Cymbalta 30mg BID, seroquel 300mg. last use one and half weeks ago. Past Medical History : unable to assess Social History : He lives with mom, single. No children. unemployed. patient denies using any substances. mom reports last use of alcohol was 2 weeks ago and denies other substance use. Patient toxicology was positive for cannabis. Family history id unknown Assessment/Diagnosis/Plan Reviewed: Consults ABRAHAM SANDOVAL DNP December 03, 2024 17:05
== END 2024-12-03 14:00 | disposition left against medical advice (07) | DRG 812 ==
LOC: ER 17:28 → EDBD 17:28 → OVERFLOW 20:53 → TELE-CENTR 12-01 15:15
PROVIDERS: ADMIT Internal Medicine; ATTEND Internal Medicine
DX: T50.991A Poisoning by other drugs, medicaments and biological substances, accidental (unintentional), initial encounter (principal); R57.1 Hypovolemic shock; N17.0 Acute kidney failure with tubular necrosis; G93.41 Metabolic encephalopathy; R65.10 Systemic inflammatory response syndrome (SIRS) of non-infectious origin without acute organ dysfunction; E87.0 Hyperosmolality and hypernatremia; E86.0 Dehydration; I21.A1 Myocardial infarction type 2; Z68.33 Body mass index [BMI] 33.0-33.9, adult; D72.829 Elevated white blood cell count, unspecified; Z53.29 Procedure and treatment not carried out because of patient's decision for other reasons; E66.9 Obesity, unspecified; N18.9 Chronic kidney disease, unspecified; F41.9 Anxiety disorder, unspecified; F19.90 Other psychoactive substance use, unspecified, uncomplicated; F31.9 Bipolar disorder, unspecified; F84.0 Autistic disorder; F90.9 Attention-deficit hyperactivity disorder, unspecified type; Z82.62 Family history of osteoporosis; Z87.442 Personal history of urinary calculi; Z88.0 Allergy status to penicillin; Z88.5 Allergy status to narcotic agent; Y92.89 Other specified places as the place of occurrence of the external cause
CPT/HCPCS: 36415; 70450; 71045; 76775; 80048; 80053; 80307; 80320; 80329; 81001; 82550; 82570; 83605; 83690; 83735; 84300; 84443; 84484; 84550; 85025; 86141; 87040; 93005; 93306; 96365; 99291; G0378; J1956; J2405